=== PATIENT | male | born 1970 | race Caucasian/White ===

== ENCOUNTER 2022-10-13 08:05 | Outpatient (OUT) | payer OTHER, SELFPAY ==
[2022-10-13 08:49] LABS: Basophils Absolute Auto 0.1 10^3/uL (0.0-0.1); Eosinophils Absolute Auto 0.2 10^3/uL (0.0-0.7); Eosinophils Percent Auto 3.4 % (0.9-7.0); Hematocrit 42.7 % (42.0-54.0); Hemoglobin 14.6 g/dL (14.0-18.0); Immature Granulocytes Abs Auto 0.03 10^3/uL (0.00-0.03); Immature Granulocytes Pct Auto 0.5 % (0.0-0.5); Lymphocytes Absolute Auto 2.2 10^3/uL (1.2-3.8); Lymphocytes Percent Auto 36.4 % (20.5-60.0); Mean Corpuscular HGB Conc 34.2 g/dL (29.9-35.2); Mean Corpuscular Hemoglobin 28.9 pg (25.9-34.0); Mean Corpuscular Volume 84.6 fL (80.0-94.0); Mean Platelet Volume 10.7 fL (9.5-13.5); Monocytes Absolute Auto 0.5 10^3/uL (0.3-0.8); Monocytes Percent Auto 8.5 % (1.7-12.0); Neutrophils Percent Auto 50.2 % (43.0-75.0); Platelet Count 240 10^3/uL (150-450); Red Blood Count 5.05 10^6/uL (4.70-6.10); Red Cell Distribution Width 13.2 % (11.0-15.0); White Blood Count 5.9 10^3/uL (4.0-11.0)
[2022-10-13 11:20] LABS: Estimated Average Glucose 166 mg/dL; Glycohemoglobin A1C 7.4 % (4.5-6.2)
[2022-10-13 15:13] LABS: Alanine Aminotransferase 56 U/L (16-63); Albumin Globulin Ratio 0.9; Albumin Level 3.7 g/dL (3.4-5.0); Alkaline Phosphatase 104 U/L (46-116); Anion Gap 13.5; Aspartate Amino Transferase 21 U/L (15-37); BUN Creatinine Ratio 19.1; Bilirubin Total 0.4 mg/dL (0.2-1.0); Calcium 9.2 mg/dL (8.5-10.1); Carbon Dioxide 23.8 mmol/L (21.0-32.0); Chloride 106 mmol/L (98-107); Chol HDL Ratio 7.2; Cholesterol 224 mg/dL (<=200); Estimated GFR (African America >60 (>=60); Estimated GFR (Non-African Ame >60 (>=60); Free T3 3.01 pg/mL (2.18-3.98); Globulin 4.1 g/dL; Glucose 178 mg/dL (74-106); HDL Cholesterol 31 mg/dL (40-60); Potassium 4.3 mmol/L (3.5-5.1); Sodium 139 mmol/L (136-145); Thyroid Stimulating Hormone 0.699 uIU/mL (0.358-3.740); Total Protein 7.8 g/dL (6.4-8.2); Triglycerides 479 mg/dL (<=150); VLDL CHOLESTEROL 95.8 mg/dL
[2022-10-13 15:46] LABS: LDL Cholesterol Direct 99 mg/dL
[2022-10-14 07:13] LABS: PSA, Free 0.29 ng/mL; Prostate Specific Ag 1.2 ng/mL (0.0-4.0)
== END 2022-10-13 08:06 | disposition home or self-care (01) ==
PROVIDERS: PCP Family Medicine; Visit Provider Family Medicine
DX: Z00.00 Encounter for general adult medical examination without abnormal findings (principal)
CPT/HCPCS: 36415; 80053; 80061; 83036; 83721; 84153; 84154; 84436; 84443; 84481; 85025

== ENCOUNTER 2024-01-04 06:47 | Outpatient (OUT) | payer OTHER, SELFPAY ==
[2024-01-04 07:15] LABS: Basophils Percent Auto 0.8 % (0.2-2.0); Eosinophils Absolute Auto 0.2 10^3/uL (0.0-0.7); Eosinophils Percent Auto 4.7 % (0.9-7.0); Hematocrit 40.5 % (42.0-54.0); Hemoglobin 13.9 g/dL (14.0-18.0); Immature Granulocytes Abs Auto 0.02 10^3/uL (0.00-0.03); Immature Granulocytes Pct Auto 0.4 % (0.0-0.5); Lymphocytes Absolute Auto 1.9 10^3/uL (1.2-3.8); Lymphocytes Percent Auto 37.5 % (20.5-60.0); Mean Corpuscular HGB Conc 34.3 g/dL (29.9-35.2); Mean Corpuscular Hemoglobin 28.7 pg (25.9-34.0); Mean Corpuscular Volume 83.7 fL (80.0-94.0); Mean Platelet Volume 10.5 fL (9.5-13.5); Monocytes Absolute Auto 0.4 10^3/uL (0.3-0.8); Monocytes Percent Auto 8.2 % (1.7-12.0); Neutrophils Absolute Auto 2.5 10^3/uL (1.4-6.5); Neutrophils Percent Auto 48.4 % (43.0-75.0); Platelet Count 209 10^3/uL (150-450); Red Blood Count 4.84 10^6/uL (4.70-6.10); Red Cell Distribution Width 12.5 % (11.0-15.0); White Blood Count 5.2 10^3/uL (4.0-11.0)
[2024-01-04 08:20] LABS: Estimated Average Glucose 243 mg/dL; Glycohemoglobin A1C 10.1 % (4.5-6.2)
[2024-01-04 08:40] LABS: Alanine Aminotransferase 43 U/L (16-63); Albumin Globulin Ratio 0.9; Albumin Level 3.1 g/dL (3.4-5.0); Alkaline Phosphatase 121 U/L (46-116); Anion Gap 12.6; Aspartate Amino Transferase 17 U/L (15-37); BUN Creatinine Ratio 18.9; Bilirubin Total 0.3 mg/dL (0.2-1.0); Calcium 8.8 mg/dL (8.5-10.1); Carbon Dioxide 23.4 mmol/L (21.0-32.0); Chloride 105 mmol/L (98-107); Chol HDL Ratio 6.3; Cholesterol 202 mg/dL (<=200); Estimated GFR (African America >60 (>=60); Estimated GFR (Non-African Ame >60 (>=60); Free T3 2.67 pg/mL (2.18-3.98); Globulin 3.4 g/dL; Glucose 229 mg/dL (74-106); HDL Cholesterol 32 mg/dL (40-60); Sodium 137 mmol/L (136-145); Thyroid Stimulating Hormone 0.655 uIU/mL (0.358-3.740); Total Protein 6.5 g/dL (6.4-8.2); Triglycerides 373 mg/dL (<=150); VLDL CHOLESTEROL 74.6 mg/dL
[2024-01-04 08:42] LABS: Prostate Specific Antigen Scrn 1.92 ng/mL (<=4.00)
== END 2024-01-04 06:48 | disposition home or self-care (01) ==
LOC: LAB 06:49
PROVIDERS: PCP Family Medicine; Visit Provider Family Medicine
DX: Z00.00 Encounter for general adult medical examination without abnormal findings (principal)
CPT/HCPCS: 36415; 80053; 80061; 83036; 84436; 84443; 84481; 85025; G0103

== ENCOUNTER 2025-01-05 14:49 | Outpatient (OUT) | payer OTHER, SELFPAY ==
--- OUTSIDE RECORDS SUMMARY | 2025-01-05 14:52 | XMS_ITS | Patient Health Record ---
Author Organization The [facility] in [place] Address [address] [place] [address] Care Team Providers Care Hand Cigar Maker Name Role Phone Dony Mirza Primary Care Provider Allergies No Known Allergies Reason For Referral Reason Vasectomy Diagnosis 1 Well adult (Z00.00) Referral Organization [facility] Referring Provider First Name Dony Referring Provider Last Name Hermes Referring Provider Speciality Family Med bibi Referred Provider Gen Gann Referred Provider Specialty Urology Referral Priority Routine Medications Medication SIG (Take, Route, Frequency, Duration) Notes Start Date End Date Status metFORMIN HCl 500 MG 1 tablet with a luz l Orally twice a day; Duration: 90 days Active Pioglitazone HCl 30 MG 1 tablet Orally O nce a day; Duration: 90 days Active Januvia 100 MG 1 tablet Orally Once a day; Duration: 90 days 02/10/2024 Active Lisinopril 40 MG 1 tablet Orally Once a day; Duration: 90 days Active OneTouch Verio - Use 1 strip once nargis ly to test blood sugar. Dx: E11.9 12/24/2023 Active Sildenafil Citrate 100 MG take 1 tablet by mouth 30 MINUTES prior to intercourse NOT MORE THAN EVERY 3 DAYS; Duration: 30 days Active OneTouch Verio Flex Lancets Use1 lancet once daily to test blood sugars. Dx: E11.9 12/24/2023 Active amLODIPine Besylate 10 MG 1 tablet Orall y Once a day; Duration: 90 days Active [employer]S Glucose Meter Test Strips - glucose meter adn test strips for TID teswting In Vitro; Duration: 30 days 12/23/2023 Active Alogliptin Benzoate 12.5 MG 1 tablet Ora lly Once a day; Duration: 90 days 07/01/2024 Active Diclofenac Sodium 75 MG 1 tablet as need ed Orally Twice a day; Duration: 90 days 08/24/2024 Active Dexcom G7 Director Of Accounting - Use CGM daily for g lucose levels DX E16.2 and R73.9; Duration: 365 days 10/29/2024 Active Dexcom G7 Sensor - Use CGM daily for gl ucose levels DX E16.2 and R73.9; Duration: 30 days 10/29/2024 Active Social History Tobacco Use: Social History Observation Description Date Details (start date - stop date) Former Smoker 04/08/2000 - 04/08/2020 Tobacco Use/Smoking Question Answer Notes Patient is a former smoker When did you start smoking? 04/08/2000 When did you stop smoking? 04/08/2020 Alcohol Screen (Audit-C) Question Answer Notes Did you have a drink containing alcohol in the p ast year? No Points 0 Interpretation Negative AUDIT-C (Standard) Question Answer Notes Did you have a drink containing alcohol in the p ast year? No Points 0 Interpretation Negative Problems Problem Type SNOMED Code ICD Code Onset Dates Problem Status W/U Status Risk Notes Problem Low back pain (395756336) Low back pain (724.5) Active confirmed Problem Wart (43095327) Wart (B07.9) Active confirmed Problem Hypertension (75217018) Hypertension (I10) Active confirmed Problem Gastroesophageal reflux disease (382469445) GERD (gastroesophage al reflux disease) (K21.9) Active confirmed Problem Eczema (04934292) Eczema (L30.9) Active confirm ed Problem Allergic rhinitis (20883869) Allergic rhinitis (J30.9) Active confirmed Problem Well adult (125335217) Well adult (Z00.00) Active confirmed Problem Irritable bowel syndrome (49228217) Irritable bowel syndrome (K58.9) Active confirmed Problem Bursitis (17386236) Bursitis (M71.9) Active confirmed Problem Hemorrhoid (43704058) Hemorrhoid (K64.9) Active confirmed Problem Diverticular disease of colon (014844924) Diverticula of colon (K57.30) Active confirmed Problem 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) Renal cyst, right (N28.1) Active confirmed Problem Benign prostatic hypertrophy without outflow obstruction (941811575) Benign prostatic hyperplasia without lower urinary tract symptoms (N40.0) Active confirmed Problem Deep venous thrombosis of lower extremity (221370591) Venous thrombosis of leg (I82.90) Active confirmed Problem Type II diabetes mellitus without complication (211960714) Diabetes (E11.9) Active confirmed Vital Signs Blood pressure diastolic 72 mm Hg 01/04/2025 Height 67 in 01/04/2025 Blood pressure systolic 118 mm Hg 01/04/2025 Weight 211 lbs 01/04/2025 BMI 33.04 kg/m2 01/04/2025 Encounters Encounter Location Date Provider Diagnosis [facility] [address] [place] [address] 01/08/2024 Dony Mirza Wart B07.[address] [address] 02/10/2024 Dony Mcknighty Diabetes E11.9 and W art B07.9 [facility] [address] [place] [address] 04/03/2024 Dony Mcknighty Wart B07.[address] [address] 08/24/2024 Dony Mcknighty Bursitis M71.[address] [address] 10/28/2024 Dony Mcknighty Diabetes E11.9 [facility] [address] [place] [address] 01/04/2025 Dony Hoy Well adult Z00.00 ; Diabetes E11.9 and Hypertension I10 [facility] [address] [place] [address] 08/03/2024 Dony Mcknighty [facility] [address] [place] [address] 10/05/2024 Dony Mcknighty [facility] [address] [place] [address] 10/28/2024 Dony Mcknighty [facility] [address] [place], [place] [address], [place] [address] 01/04/2025 Dony Hoy Well adult Z00.00 ; Bursitis M71.9 and Diabetes E11.9 [facility] [address] [place] [facility] [place] [address] 01/07/2024 Dony Hoy [facility] [address] [place] [facility] [place] [address] 06/08/2024 Dony Hoy Well adult Z00.00 [facility] [address] [place] [facility] [place] [address] 06/24/2024 Dony Hoy Well adult Z00.00 [facility] [address] [place] [facility] [address] 07/01/[address] [facility] [address] [place] [place] [address] 07/01/[address] [facility] [address] [place] [place] [address] 07/23/2024 Dony Hoy Well adult Z00.00 [facility] [address] [place] [address] 08/24/2024 Dony Hoy Well adult Z00.00 [facility] [address] [place] [facility] [place] [address] 08/25/2024 Dony Juan Luisy Bursitis M71.[address] [place] [address] 10/04/2024 Dony Juan Luisy Assessments Encounter Date Diagnosis (ICD Code) Assessment Notes Treatment Notes Treatment Clinical Notes Section Notes 01/08/2024 Wart (ICD-10 - B07.9) 02/10/2024 Wart (ICD-10 - B07.9) 02/10/2024 Diabetes (ICD-10 - E11.9) 04/03/2024 Wart (ICD-10 - B07.9) 08/24/2024 Bursitis (ICD-10 - M71.9) may need prednisone - 60 mg po Q day for 5 days 10/28/2024 Diabetes (ICD-10 - E11.9) 01/04/2025 Well adult (ICD-10 - Z00.00) 01/04/2025 Diabetes (ICD-10 - E11.9) stopping glimiperide 06/08/2024 Well adult (ICD-10 - Z00.00) 06/24/2024 Well adult (ICD-10 - Z00.00) 07/23/2024 Well adult (ICD-10 - Z00.00) 01/04/2025 Well adult (ICD-10 - Z00.00) 08/24/2024 Well adult (ICD-10 - Z00.00) 08/25/2024 Bursitis (ICD-10 - M71.9) 01/04/2025 Bursitis (ICD-10 - M71.9) 01/04/2025 Hypertension (ICD-10 - I10) 01/04/2025 Diabetes (ICD-10 - E11.9) Plan Of Treatment Pending Test Test Name Order Date CMP (COMPLETE METABOLIC PANEL) 3 CMP (COMPLETE METABOLIC PANEL) 4 HEMOGLOBIN A1C (GLYCO) 12/23/2023 HEMOGLOBIN A1C (GLYCO) 01/04/2025 HEMOGLOBIN A1C (GLYCO) 10/12/2022 LIPID PANEL (CHOL/TRIG/HDL/LDL) 12/23/19 24 LIPID PANEL (CHOL/TRIG/HDL/LDL) 10/13/19 23 LIPID PANEL (CHOL/TRIG/HDL/LDL) 01/05/20 25 CBC WITH DIFF 10/12/2022 CBC WITH DIFF 12/23/2023 URIC ACID 01/04/2025 PSA-FREE AND TOTAL 10/12/2022 PSA, TOTAL 12/23/2023 STOOL OCCULT BLOOD 01/04/2025 THYROID PANEL (T4/TSH/FREE T3) 5 THYROID PANEL (T4/TSH/FREE T3) 4 THYROID PANEL (T4/TSH/FREE T3) 3 PSA, SCREENING 01/04/2025 CMP (COMP MET SHARMA) w/eGFR CKD-EPI 2024 CBC WITH DIFF 01/04/2025 Insurance Providers Payer Name Payer Address Payer Phone Subscriber Number Group Number Insured Name Patient Relationship to Insured Coverage Start Date Coverage End Date [employer] [address] [address] [place] [address] [id number] yesi rangel Spouse - patient is the spouse of the insured Medical (General) History Medical History History ICD Code Venous thrombosis of leg I82.90 Low back pain 724.5 Hypertension I10 Diabetes E11.9 Irritable bowel syndrome K58.9 Hemorrhoid K64.9 Renal cyst, right N28.1 Eczema L30.9 GERD (gastroesophageal reflux disease) K 21.9 Allergic rhinitis J30.9 Diverticula of colon K57.30 Epididymitis Fracture Carpal bone, Right Collapsed Vertebra, L4 Traumatic Pneumothorax, Right Ileus Intenstinal Pseudo Obstruction Surgical History Surgery Date(Month/Year) Chest tube from punctured lung [facility]- Dr. Harry 10/17/2023 Colonoscopy 09/26/16 Hospitalization History Reason Date(Month/Year) traumatic accident
[2025-01-05 15:45] LABS: Hematocrit 41.9 % (42.0-54.0); Hemoglobin 14.4 g/dL (14.0-18.0); Immature Granulocytes Abs Auto 0.02 10^3/uL (0.00-0.03); Immature Granulocytes Pct Auto 0.3 % (0.0-0.5); Lymphocytes Absolute Auto 2.3 10^3/uL (1.2-3.8); Mean Corpuscular HGB Conc 34.4 g/dL (29.9-35.2); Mean Corpuscular Hemoglobin 28.9 pg (25.9-34.0); Mean Corpuscular Volume 84.0 fL (80.0-94.0); Platelet Count 226 10^3/uL (150-450); Red Blood Count 4.99 10^6/uL (4.70-6.10); White Blood Count 6.0 10^3/uL (4.0-11.0)
[2025-01-05 15:58] LABS: Alanine Aminotransferase 51 U/L (16-63); Albumin Globulin Ratio 1.0; Albumin Level 3.8 g/dL (3.4-5.0); Alkaline Phosphatase 97 U/L (46-116); Anion Gap 16.1; Aspartate Amino Transferase 20 U/L (15-37); Blood Urea Nitrogen 18.0 mg/dL (7.0-18.0); Calcium 9.2 mg/dL (8.5-10.1); Carbon Dioxide 24.8 mmol/L (21.0-32.0); Chloride 104 mmol/L (98-107); Cholesterol 200 mg/dL (<=200); Estimated GFR (African America >60 (>=60 mL/min/1.73m^2); Estimated GFR (Non-African Ame >60 (>=60 mL/min/1.73m^2); Free T3 2.56 pg/mL (2.18-3.98); Globulin 3.8 g/dL; Glucose 96 mg/dL (74-106); HDL Cholesterol 37 mg/dL (40-60); Potassium 3.9 mmol/L (3.5-5.1); Sodium 141 mmol/L (136-145); Thyroid Stimulating Hormone 0.837 uIU/mL (0.358-3.740); Total Protein 7.6 g/dL (6.4-8.2); Triglycerides 200 mg/dL (<=150); Uric Acid 4.1 mg/dL (3.5-7.2); VLDL CHOLESTEROL 40.0 mg/dL
== END 2025-01-05 14:50 | disposition home or self-care (01) ==
PROVIDERS: PCP Family Medicine; Visit Provider Family Medicine
DX: Z00.00 Encounter for general adult medical examination without abnormal findings (principal)
CPT/HCPCS: 36415; 80053; 80061; 83036; 84436; 84443; 84481; 84550; 85025; G0103

== ENCOUNTER 2025-01-07 14:47 | Outpatient (REF) | payer OTHER, SELFPAY ==
--- OUTSIDE RECORDS SUMMARY | 2025-01-04 12:00 | XMS_ITS ---
Author Organization The [facility] in [place] Address [address] [place] [address] Care Team Providers Care Digital Communications Manager Name Role Phone Dony Mirza Primary Care Provider [phone] Allergies No Known Allergies Reason For Referral Reason Vasectomy Diagnosis 1 Well adult (Z00.00) Referral Organization [facility] Medicine Referring Provider First Name Dony Referring Provider Last Name Hermes Referring Provider Speciality Family Med bibi Referred Provider Gen Gann Referred Provider Specialty Urology Referral Priority Routine REASON FOR VISIT annual wellness, would like to discuss blood sugars Medications Medication SIG (Take, Route, Frequency, Duration) Notes Start Date End Date Status Sildenafil Citrate 100 MG take 1 tablet by mouth 30 MINUTES prior to intercourse NOT MORE THAN EVERY 3 DAYS; Duration: 30 Active metFORMIN HCl 500 MG take 1 tablet by [facility] twice a day; Duration: 90 days Active OneTouch Verio - Use 1 strip once nargis ly to test blood sugar. Dx: E11.9 12/24/2023 Active OneTouch Verio Flex Lancets Use1 lancet once daily to test blood sugars. Dx: E11.9 12/24/2023 Active Pioglitazone HCl 30 MG 1 tablet Orally O nce a day; Duration: 90 days Active Future Simplecom G7 Sensor - Use CGM daily for gl ucose levels DX E16.2 and R73.9; Duration: 30 days 10/29/2024 Active Diclofenac Sodium 75 MG 1 tablet as need ed Orally Twice a day; Duration: 30 days 08/24/2024 Active Januvia 100 MG 1 tablet Orally Once a day; Duration: 30 days 02/10/2024 Active Lisinopril 40 MG take 1 tablet by reina th once daily; Duration: 90 days Active Dexcom G7 Zoning Engineer - Use CGM daily for g lucose levels DX E16.2 and R73.9; Duration: 365 days 10/29/2024 Active Alogliptin Benzoate 12.5 MG 1 tablet Ora lly Once a day; Duration: 90 days 07/01/2024 Active amLODIPine Besylate 10 MG 1 tablet Orall y Once a day; Duration: 90 days Active [facility] Glucose Meter Test Strips - glucose meter adn test strips for TID teswting In Vitro; Duration: 30 days 12/23/2023 Active Social History Tobacco Use: Social History Observation Description Date Details (start date - stop date) Former Smoker 04/08/2000 - 04/08/2020 Tobacco Use/Smoking Question Answer Notes Patient is a former smoker When did you start smoking? 04/08/2000 When did you stop smoking? 04/08/2020 AUDIT-C (Standard) Question Answer Notes Did you have a drink containing alcohol in the p ast year? No Points 0 Interpretation Negative Vital Signs Weight 211 lbs 01/04/2025 Height 67 in 01/04/2025 Blood pressure systolic 118 mm Hg 01/05/20 25 Blood pressure diastolic 72 mm Hg 025 BMI 33.04 kg/m2 01/04/2025 Encounters Encounter Location Date Provider Diagnosis [address] [address] 01/04/2025 Dony Mirza Well adult Z00.00 ; Diabetes E11.9 and Hypertension I10 Assessments Encounter Date Diagnosis (ICD Code) Assessment Notes Treatment Notes Treatment Clinical Notes Section Notes 01/04/2025 Well adult (ICD-10 - Z00.00) 01/04/2025 Diabetes (ICD-10 - E11.9) stopping glimiperide 01/04/2025 Hypertension (ICD-10 - I10) Plan Of Treatment Treatment Notes Assessment Notes Diabetes stopping glimiperide Pending Test Test Name Order Date HEMOGLOBIN A1C (GLYCO) 01/04/2025 LIPID PANEL (CHOL/TRIG/HDL/LDL) 01/05/20 25 URIC ACID 01/04/2025 STOOL OCCULT BLOOD 01/04/2025 THYROID PANEL (T4/TSH/FREE T3) PSA, SCREENING 01/04/2025 CMP (COMP MET SHARMA) w/eGFR CKD-EPI 2024 CBC WITH DIFF 01/04/2025 Referrals Referral Date Details 01/04/2025 01/04/2025, Vasectom y, Gen Gann Progress Notes * Gigi RANGEL EDOB:1970 (54 yo M)Acc No.[id number]:01/04/2025 UNLOCKED PROGRESS NOTE Progress Note Patient: Gigi REID Provider: Kristopher Mirza ([facility])MD :1970 A ge:54 Y S ex:Male Date:01/04/2025 Address:[address] [place], [place] [address] Check In:03:49 PM ESTCheck O ut:05:06 PM EST Subjective: * Chief Complaints: * 1 . Annual wellness. 2. Would like to discuss blood sugars. * ROS: E ENT: hearing changes d enies. v isual changes d enies.?non-healing mouth sores d enies. s wollen glands or neck lumps d enies. h oarseness d enies. s ore throat d enies. d ifficulty swallowing d enies. n ose bleeds d enies. n tito congestion d enies. e ar ache d enies. e ar discharge?denies. r inging in ears d enies. l ight sensitivity d enies. e ye pain d enies. b lurring d enies. e ye irritation d enies. d ouble vision d enies.?vision loss d enies. G eneral/Constitutional: Sweats: D enies. F atigue d enies. S leep problems d enies. A norexia d enies. M alaise d enies. W eight loss d enies.?Fatigue or Weakness d enies. F ever or Chills d enies. C ardiovascular: Shortness of Breath w/lying flat d enies. L ightheadedness/dizziness d enies. C hest tightness/ heavy pressure d enies. S welling of legs, ankles, or feet d enies. W aking up with shortness of breath d enies. C hest pain denies. P alpitations d enies. W eight gain d enies. R espiratory: Chronic or frequent cough d enies. C oughing up blood?denies. D ifficulty breathing d enies. P roductive cough d enies. S noring?denies. S hortness of breath that awakens from sleep (PND) d enies. C hest pain d enies. S putum production d enies. W heezing d enies. M usculoskeletal: Joint pain d enies. J oint Fluid d enies. B ack pain d enies. K nee pain d enies. N shan pain d enies. J oint Stiffness d enies. M uscle cramps d enies. W eakness of muscles d enies. A rthritis d enies. M uscle aches d enies. P ain in shoulder(s) d enies. S wollen joints d enies. * Medical History: V enous thrombosis of leg, Low back pain, Hypertension, Diabetes, Irritable bowel syndrome, Hemorrhoid, Renal cyst, right, Eczema, GERD (gastroesophageal reflux disease), Allergic rhinitis, Diverticula of colon, Epididymitis, Fracture Carpal bone, Right, Collapsed Vertebra, L4, Traumatic Pneumothorax, Right, Ileus, Intenstinal Pseudo Obstruction. * Surgical History: C hest tube from punctured lung , Colonoscopy 09/26/16, [facility]- Dr. Harry 10/17/2023. * Hospitalization/Major Diagno stic Procedure: t raumatic accident . * Family History: F ather: , CHF, diagnosed with Heart Disease. M other: , [facility], diagnosed with Heart Disease. B greger(s): alive. S ister(s): alive. D andrei(s): alive, crohns disease. 1 brother(s) , 3 sister(s) - healthy. 1 daughter(s) . . * Social History: T obacco Use: T obacco Use/Smoking P atient is a f ormer smoker W hen did you start smoking? 0 04/08/2000 W hen did you stop smoking? 0 04/08/2020 D rug/Alcohol: A LYLY-C (Standard) D id you have a drink containing alcohol in the past year? N o P oints 0 I nterpretation N egative * Medications: T sumi Alogliptin Benzoate 12.5 MG Tablet 1 tablet Orally Once a day , Taking amLODIPine Besylate 10 MG Tablet 1 tablet Orally Once a day , Taking [facility] Glucose Meter Test Strips(Glucose Blood) - Strip glucose meter adn test strips for TID teswting In Vitro , Taking Dexcom G7 Zoning Engineer(Continuous Glucose Zoning Engineer) - Device Use CGM daily for glucose levels DX E16.2 and R73.9 , Taking Dexcom G7 Sensor(Continuous Glucose Sensor) - Miscellaneous Use CGM daily for glucose levels DX E16.2 and R73.9 , Taking Diclofenac Sodium 75 MG Tablet Delayed Release 1 tablet as needed Orally Twice a day , Taking Januvia(SITagliptin Phosphate) 100 MG Tablet 1 tablet Orally Once a day , Taking Lisinopril 40 MG Tablet take 1 tablet by mouth once daily , Taking metFORMIN HCl 500 MG Tablet take 1 tablet by mouth twice a day , Taking OneTouch Verio(Glucose Blood) - Strip Use 1 strip once daily to test blood sugar. Dx: E11.9, Taking OneTouch Verio Flex Lancets Use1 lancet once daily to test blood sugars. Dx: E11.9, Taking Pioglitazone HCl 30 MG Tablet 1 tablet Orally Once a day , Taking Sildenafil Citrate 100 MG Tablet take 1 tablet by mouth 30 MINUTES prior to intercourse NOT MORE THAN EVERY 3 DAYS , Discontinued Glimepiride 2 MG Tablet 1 tablet with breakfast or the first main meal of the day Orally Once a day , Medication List reviewed and reconciled with the patient * Allergies: N .K.D.A. Objective: * Vitals: W t:211lbs, Ht: 67 in, BP:118/72mm Hg, BMI:33.04Index, Ht-cm: 170.18 cm, Wt-k.71 kg. * Examination: P hysical Exam: GENERAL: w ell developed, well nourished, in no acute distress. HEAD: n ormocephalic/atraumatic. EYES: p upils equal, round and reactive to light, conjunctivae and sclerae normal. EARS: n o deformity or lesion of external ear, canals and TM appear normal bilaterally, TM's intact, not inflamed with normal light reflex, hearing grossly normal to conversational speech. NOSE: n o deformity, discharge, inflammation, or lesions.? MOUTH: m ucous membranes moist, normal oropharynx and posterior pharynx without lesions or exudates, tongue normal, dentition normal. NECK: n shan supple, no masses or palpable cervical nodes, trachea midline, thyroid without nodules, masses, tenderness, or enlargement. CHEST: n o chest wall deformity, no chest wall tenderness.? LUNGS: n ormal respiratory effort and clear to auscultation, no wheezes, rales, or rhonchi, good air exchange. CARDIO: r egular rate and rhythm, normal S1 and S2, nor murmur, rub, or gallop. PULSES: n ormal capillary refill. ABDOMEN: s oft, non-distended, non-tender, no masses. MUSCULOSKELETAL: n o deformity or scoliosis noted, normal range of motion, joints normal, no erythema, edema, effusion, or ecchymosis. EXTREMITY: n o clubbing, cyanosis, edema, or deformity with normal ROM in both upper and lower bilateral extremities. NEUROLOGIC: g rossly normal. SKIN: n o rashes, ulcerations, or suspicious lesions. LYMPH NODES: n o cervical adenopathy, nodes normal. MENTAL STATUS: a lert and oriented x3, normal mood and affect. Assessment: * Assessment: 1. W ell adult - Z00.00 (Primary) 2 . D iabetes - E11.9 3 .?Hypertension - I10 Plan: * Treatment: 2. D iabetes Notes: stopping glimiperide * Preventive Medicine: Screenings/Counseling: B OR ACTION PLAN Above Normal BMI Follow-up D ietary management education, guidance, and counseling * * Electronic signature of Dony Mirza MD, [id number] on 01/07/2025 at 02:49 PM EDT Sign off status: Pending Visit Status: Kate ISRAEL (Check Out) * Provider: Kristopher Mirza ([facility])MD Date: 0 01/04/2025 Generated for Printi ng/Faarmeng/eTransmitting on: 1 02:49 PM EDT History and Physical Notes * Examination Category Sub-Category Detail Notes Category Not es Physical Exam GENERAL: well developed, well nourished, in no acute distress HEAD: normocephalic/atraum atic EYES: pupils equal, round and reactive to light, conjunctivae and sclerae normal EARS: no deformity or lesi on of external ear, canals and TM appear normal bilaterally, TM's intact, not inflamed with normal light reflex, hearing grossly normal to conversational speech NOSE: no deformity, discha rge, inflammation, or lesions MOUTH: mucous membranes [address], normal oropharynx and posterior pharynx without lesions or exudates, tongue normal, dentition normal NECK: neck supple, no mass es or palpable cervical nodes, trachea midline, thyroid without nodules, masses, tenderness, or enlargement CHEST: no chest wall deform ity, no chest wall tenderness LUNGS: normal respiratory e ffort and clear to auscultation, no wheezes, rales, or rhonchi, good air exchange CARDIO: regular rate and rhy thm, normal S1 and S2, nor murmur, rub, or gallop PULSES: normal capillary ref ill ABDOMEN: soft, non-distended, non-tender, no masses RECTAL: MUSCULOSKELETAL: no deformity or scol iosis noted, normal range of motion, joints normal, no erythema, edema, effusion, or ecchymosis EXTREMITY: no clubbing, cyanosi s, edema, or deformity with normal ROM in both upper and lower bilateral extremities NEUROLOGIC: grossly normal SKIN: no rashes, ulceratio ns, or suspicious lesions LYMPH NODES: no cervical adenopat hy, nodes normal MENTAL STATUS: alert and oriented x 3, normal mood and affect Consultation Request Notes Referral Date Referring Provider Referred Provider Not es 01/04/2025 Dony Mirza, Gen Vasectomy
--- OUTSIDE RECORDS SUMMARY | 2025-01-05 12:57 | XMS_ITS ---
Author Organization The [facility] in [place] Address [address] [place] [address] Care Team Providers Care Supervisor Keymodule Assembly Name Role Phone Dony Mirza Primary Care Provider REASON FOR VISIT Lab results Problems Problem Type SNOMED Code ICD Code Onset Dates Problem Status W/U Status Risk Notes Problem Hypertriglyceridemia (092019196) Hypertriglyceridemia (E78.1) Active confirmed Encounters Encounter Location Date Provider Diagnosis [facility] [address] [place] [address] 01/05/2025 Dony Mirza Plan Of Treatment No Information Progress Notes * Gigi RANGEL EDOB:1970 (54 yo M)Acc No.[id number]:01/05/2025 Patient: Gigi REID :1970 A ge:54 Y S ex:Male Address:[address] [place] [address] Subjective: * Chief Complaints: * L ab results * Medical History: * Surgical History: * Hospitalization/Major Diagno stic Procedure: * Medications: Objective: * Vitals: * Physical Examination: Assessment: Plan: * Treatment: * Procedure Codes: * true * Date: Generated for Printi ng/Faxing/eTransmitting on: 1 02:49 PM EDT
--- OUTSIDE RECORDS SUMMARY | 2025-01-07 14:50 | XMS_ITS | Patient Health Record ---
Author Organization [facility] [place] Address [address] [place] [address] Care Team Providers Care Sliver Former Name Role Phone Dony Mirza Primary Care Provider [phone] Allergies No Known Allergies Results Component Value Reference Range Notes CBC AUTO DIFF Reviewed date:01/05/2025 04:57:32 PM Interpretation: Performing Lab: Notes/Report: [facility] , White Blood Count 6.0 4.0-11.0 10 3/uL Red Blood Count 4.99 4.70-6.10 10 6/uL Hemoglobin 14.4 14.0-18.0 g/dL Hematocrit 41.9 42.0-54.0 % Mean Corpuscular Volume 84.0 80.0-94.0 fL Mean Corpuscular Hemoglobin 28.9 25.9-34.0 pg Mean Corpuscular HGB Conc 34.4 29.9-35.2 g/dL Red Cell Distribution Width 13.6 11.0-15.0 % Platelet Count 226 150-450 10 3/uL Mean Platelet Volume 10.9 9.5-13.5 fL Neutrophils Percent Auto 50.3 43.0-75.0 % Lymphocytes Percent Auto 37.6 20.5-60.0 % Monocytes Percent Auto 8.1 1.7-12.0 % Eosinophils Percent Auto 3.0 0.9-7.0 % Basophils Percent Auto 0.7 0.2-2.0 % Immature Granulocytes Pct Auto 0.3 0.0-0.5 % Neutrophils Absolute Auto 3.0 1.4-6.5 10 3/uL Lymphocytes Absolute Auto 2.3 1.2-3.8 10 3/uL Monocytes Absolute Auto 0.5 0.3-0.8 10 3/uL Eosinophils Absolute Auto 0.2 0.0-0.7 10 3/uL Basophils Absolute Auto 0.0 0.0-0.1 10 3/uL Immature Granulocytes Abs Auto 0.02 0.00-0.03 10 3/uL Performing Lab: see note ML - [facility] FREE T3 Reviewed date:01/05/2025 04:57:32 PM Interpretation: Performing Lab: Notes/Report: [facility] , Free T3 2.56 2.18-3.98 pg/mL Performing Lab: see note ML - [facility] GLYCOHEMOGLOBIN A1C Reviewed date:01/05/2025 04:57:32 PM Interpretation: Performing Lab: Notes/Report: [facility] , Glycohemoglobin A1C 6.1 4.5-6.2 % ADA THERAPEUTIC TARGET < 7.0 ACTION SUGGESTED ADA RECOMMENDED LIMIT 4.0 - 6.0 > 7.0 Estimated Average Glucose 128 Performing Lab: see note ML - [facility] LIPID PROFILE Reviewed date:01/05/2025 04:57:32 PM Interpretation: Performing Lab: Notes/Report: [facility] , Triglycerides 200 <=150 mg/dL Cholesterol 200 <=200 mg/dL HDL Cholesterol 37 40-60 mg/dL > or =60 mg/dl - LOW CARDIOVASCULAR RISK <40 mg/dl - HIGH CARDIOVASCULAR RISK LDL Cholesterol Calculated 123.0 160-189 mg/dl HIGH 100-129 mg/dl NEAR OR ABOVE OPTIMAL >190 mg/dl VERY HIGH 130-159 mg/dl BORDERLINE HIGH <100 mg/dl OPTIMAL VLDL CHOLESTEROL 40.0 Chol HDL Ratio 5.4 >11.0 HIGH RISK 3.3 - 4.4 LOW RISK 4.4 - 7.1 AVERAGE RISK 7.1 - 11.0 MODERATE RISK Performing Lab: see note [facility] PROF 14(COMP METB) Reviewed date:01/05/2025 04:57:32 PM Interpretation: Performing Lab: Notes/Report: [facility] , Sodium 141 136-145 mmol/L Potassium 3.9 3.5-5.1 mmol/L Chloride 104 98-107 mmol/L Carbon Dioxide 24.8 21.0-32.0 mmol/L Anion Gap 16.1 Glucose 96 74-106 mg/dL Blood Urea Nitrogen 18.0 7.0-18.0 mg/dL Creatinine 0.80 0.70-1.30 mg/dL Estimated GFR ( Bfufy >60 >=60 mL/min/1.73m 2 Estimated GFR (Non- Rosa >60 >=60 mL/min/1.73m 2 BUN Creatinine Ratio 22.5 Calcium 9.2 8.5-10.1 mg/dL Bilirubin Total 0.5 0.2-1.0 mg/dL Aspartate Amino Transferase 20 15-37 U/L Alanine Aminotransferase 51 16-63 U/L Alkaline Phosphatase 97 46-116 U/L Total Protein 7.6 6.4-8.2 g/dL Albumin Level 3.8 3.4-5.0 g/dL Globulin 3.8 Albumin Globulin Ratio 1.0 Performing Lab: see note ML - [facility] LB PSA SCREENING Reviewed date:01/05/2025 04:57:32 PM Interpretation: Performing Lab: Notes/Report: [facility] , Prostate Specific Antigen Scrn 1.35 <=4.00 ng/mL Performing Lab: see note ML - [facility] LB T4 Reviewed date:01/05/2025 04:57:32 PM Interpretation: Performing Lab: Notes/Report: [facility] , T4 Thyroxine 7.50 4.50-12.10 ug/dL Performing Lab: see note ML - [facility] LB TSH Reviewed date:01/05/2025 04:57:32 PM Interpretation: Performing Lab: Notes/Report: [facility] , Thyroid Stimulating Hormone 0.837 0.358-3.740 u IU/mL Performing Lab: see note ML - [facility] LB URIC ACID SERUM Reviewed date:01/05/2025 04:57:32 PM Interpretation: Performing Lab: Notes/Report: [facility] , Uric Acid 4.1 3.5-7.2 mg/dL Performing Lab: see note ML - [facility] LB Reason For Referral Reason Vasectomy Diagnosis 1 Well adult (Z00.00) Referral Organization [facility] Referring Provider First Name Dony Referring Provider Last Name Hermes Referring Provider Speciality [facility] bibi Referred Provider Gen Gann Referred Provider [...] Duration: 90 days 08/24/2024 Active 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 - Use CGM daily for g lucose [...] Status Risk Notes Problem Low back pain (227648627) Low back pain (724.5) Active confirmed Problem Wart (99725573) Wart (B07.9) Active confirmed Problem Hypertension (80445915) Hypertension (I10) Active confirmed Problem Gastroesophageal reflux disease (287058851) GERD (gastroesophageal reflux disease) (K21.9) Active confirmed Problem Eczema (98910411) Eczema (L30.9) Active confirm ed Problem Hypertriglyceridemia (290396877) Hypertriglyceridemia (E78.1) Active confirmed Problem Allergic rhinitis (13323718) Allergic rhinitis (J30.9) Active confirmed Problem Well adult (323336831) Well adult (Z00.00) Active confirmed Problem Irritable bowel syndrome (00638698) Irritable bowel syndrome (K58.9) Active confirmed Problem Bursitis (22701687) Bursitis (M71.9) Active con firmed Problem Hemorrhoid (30034255) Hemorrhoid (K64.9) Active confirmed Problem Diverticular disease of colon (356267366) Diverticula of colon (K57.30) Active confirmed Problem Acquired renal cysti c disease (994962541) Renal cyst, right (N28.1) Active confirmed Problem Benign prostatic hypertrophy without outflow obstruction (147994731) Benign prostatic hyperplasia without lower urinary tract symptoms (N40.0) Active confirmed Problem Deep venous thrombosis of lower extremity (555384356) Venous thrombosis of leg (I82.90) Active confirmed Problem Type II diabetes mellitus without complication (015796628) Diabetes (E11.9) Active confirmed Vital Signs Blood pressure diastolic 72 mm Hg 01/04/2025 Height 67 in 01/04/2025 Blood pressure systolic 118 mm Hg 01/04/2025 Weight 211 lbs 01/04/2025 BMI 33.04 kg/m2 01/04/2025 Encounters Encounter Location Date Provider Diagnosis [facility] [address] [place] [address] 08/03/2024 [facility] [address] [place] [address] 10/05/2024 [facility] [address] [place] [address] 10/28/2024 Dony Hoy [facility] [address] [place] [facility] [place] [address] 01/04/2025 Dony Hoy Well adult Z00.00 ; Bursitis M71.9 and Diabetes E11.9 [facility] [address] [place] [facility] [place] [address] 01/05/2025 Dony Hoy [facility] [address] [place] [facility] [place] [address] 06/08/2024 Dony Hoy Well adult Z00.00 [facility] [address] [place] [facility] [place] [address] 06/24/2024 Dony Hoy Well adult Z00.00 [facility] [address] [place] [facility] [address] 07/01/2024 Dony Hoy [facility] [address] [facility] [place] [address] 07/01/2024 Dony Hoy [facility] [address] [place] [facility] [address] 07/23/2024 Dony Hoy Well adult Z00.00 [facility] [address] [place] [facility] [place] [address] 08/24/2024 Dony Hoy Well adult Z00.00 [facility] [address] [place] [facility] [place] [address] 08/25/2024 Dony Hoy Bursitis M71.9 [facility] [address] [place] [facility] [place] [address] 10/04/2024 Dony Hoy [facility] [address] [place] [facility] [place] [address] 01/08/2024 Dony Hoy Wart B07.9 [facility] [address] [place] [facility] [place] [address] 02/10/2024 Dony Hoy Diabetes E11.9 and W art B07.9 [facility] [address] [place] [facility] [place] [address] 04/03/2024 Dony Mirza Wart B07.9 [facility] [address] [place] [address] 08/24/2024 Dony Mirza Bursitis M71.9 [facility] [address] [place] [address] 10/28/2024 Dony Mirza Diabetes E11.9 [facility] [address] [place] [address] 01/04/2025 Dony Mirza Well adult Z00.00 ; Diabetes E11.9 and Hypertension I10 Assessments Encounter Date Diagnosis (ICD Code) Assessment Notes Treatment Notes Treatment Clinical Notes Section Notes 01/08/2024 Wart (ICD-10 - B07.9) 02/10/2024 Diabetes (ICD-10 - E11.9) 02/10/2024 Wart (ICD-10 - B07.9) 04/03/2024 Wart (ICD-10 - B07.9) 08/24/2024 Bursitis [...] Coverage End Date [employer] [address] [address] [place] [address] [id number] yesi rangel Spouse - patient is the [...] Traumatic Pneumothorax, Right Ileus Intenstinal Pseudo Obstruction Hypertriglyceridemia E78.1 Surgical History Surgery Date(Month/Year) Chest tube from punctured lung TURP- Dr. Harry 10/17/2023 Colonoscopy 09/26/16 Hospitalization History Reason Date(Month/Year) traumatic accident
--- OUTSIDE RECORDS SUMMARY | 2025-01-07 19:46 | XMS_ITS | CCD ---
Author Organization [facility] Care Team Providers Care Dispatcher Relay Name Role Phone DR ABDULKADIR LOCKETT Consulting Unavailable LEVY, DR PANCHAL Primary Care Unavailable LEVY, DR PANCHAL Admitting Unavailable ARVINDY, DR PANCHAL Attending Unavailable Zieber, DR Escalona Consulting Unavailable LEVY, DR PANCHAL Consulting Unavailable ARVINDY, DR PANCHAL Primary Care Unavailable ARVINDY, DR PANCHAL Admitting Unavailable HOY, DR PANCHAL Attending Unavailable Zieber, DR Escalona Consulting Unavailable LEVY, DR PANCHAL Consulting Unavailable LEVY, DR PANCHAL Primary Care Unavailable LEVY, DR PANCHAL Admitting Unavailable LEVY, DR PANCHAL Attending Unavailable Abdulkadir Lockett Primary Care Physician MD Kyle Harry Attending Provider MD Abdulkadir Lockett Primary Care Provider [phone] IDA Sanford Other Provider Unavailable IDA Hubbard Other Provider Unavailable IDA Yeboah Other Provider Unavailable IDA Ordaz Other Provider Unavailable IDA Bautista Other Provider Unavailable MD Roverto Cordoba Other Provider DO Halima Burgos Other Provider MD Temo Collado Other Provider DO Brody Bustos Other Provider MD Horace Ureña Other Provider [phone] MD Alaina Christianson Other Provider MD Leonardo Ibrahim Other Provider Unavailable GREGORY Romero Other Provider [phone] MD Kingston Max Other Provider MD Daniel Bueno Other Provider MD Juan Diego Thomas Other Provider MD Shaun Chauhan Other Provider DO Shantanu Tavares Other Provider MD Zack Salvador Other Provider MD Nick Borrego Other Provider Jose Ramon LACE WINDER-C Susannah Calabrese Other Provider GREGORY Mak Other Provider Unavailable MD Juan Manuel Alexandra Other Provider MD Fan Gloria Other Provider MD Chris Rojas Other Provider MD Lulú Nuno Other Provider Unavailable MD Sukhdev Aleman Other Provider DO Trish Patel Other Provider DO Odell Torres Other Provider GREGORY Peres Other Provider DO Ayan Robles Other Provider MD Marilu Muñoz Other Provider GREGORY Thomas Other Provider GREGORY Martino Other Provider MD Sam Coulter Other Provider MD Pérez Carlos Other Provider DO Jerson Watson Other Provider DO Aaliyah Rios Other Provider MD Davin Rojas Other Provider MD Brenda Jameson Other Provider GREGORY Padgett Other Provider MD Samson Jim Other Provider MD Dusty Manriquez Other Provider IDA Ruiz Other Provider Unavailable Kyle Harry Admitting Unavailable Kyle Harry Attending Unavailable Abdulkadir Lockett Primary Care Unavailable Abdulkadir Lockett Primary Care Unavailable Kary Sanford Consulting Unavailable Kyle Harry Admitting Unavailable Kyle Harry Attending Unavailable Naz Hubbard Consulting Unavailable Gladys Yeboah Consulting Unavailable Nathalia Ordaz Consulting Unavailable Lisandra Bautista Consulting Unavailable Roverto Cordoba Consulting Unavailable Halima Burgos Consulting Unavailable Temo Collado Consulting Unavailable Brody Bustos Consulting UnavailHorace Soto Consulting Unavailable Alaina Christianson Consulting Unavailable Leonardo Ibrahim Consulting Unavailable Daisha Romero Consulting UnavailKingston Medeiros Consulting Unavailable Daniel Bueno Consulting Unavailable Juan Diego Thomas Consulting Unavailable Shaun Chauhan Consulting Unavailable Shantanu Tavares Consulting Unavailable Zack Salvador Consulting Unavailable Nick Borrego Consulting Unavailable Susannah Albright Consulting Unavailable Rebeca Mak Consulting Unavailable DoamerinaorJuan Manuel Consulting UnavailFan Bustillos Consulting Unavailable Chris Rojas Consulting Unavailable Lulú Nuno Consulting Unavailable Sukhdev Aleman Consulting Unavailable Trish Patel Consulting Unavailable Odell Torres Consulting Unavailable ObKira rolle Consulting Unavailable Ayan Robles Consulting Unavailable DaromaJarrett juarezayaimee Contreras Consulting Unavailable Destiny Thomas Consulting Unavailable Tammi Martino Consulting Unavailable Alahmad Alaa Consulting Unavailable Pérez Carlos Consulting Unavailable Jerson Watson Consulting Unavailable Aaliyah Rios Consulting Unavailable Davin Rojas Consulting Unavailable Brenda Jameson Consulting Unava Soco Lr Consulting Unavailable Samson Jim Consulting Unavailable Dusty Manriquez Consulting Unavailable Zainab Ruiz Consulting Unavailable Kyle HARRY Attending Unavailable Kyle HARRY Attending Unavailable Noemy Mckeon Attending Unavailable LORE ZAPATA Attending Unavailable Kyle HARRY Attending Unavailable Kyle HARRY Admitting Unavailable Kyle HARRY Attending Unavailable COOK, Kyle P Referring Unavailable COOK, Kyle P Admitting Unavailable COOK, Kyle P Attending Unavailable COOK, Kyle P Referring Unavailable COOK, Kyle P Attending Unavailable COOK, Kyle P Referring Unavailable COOK, Kyle P Admitting Unavailable COOK, Kyle P Attending Unavailable COOK, Kyle P Attending Unavailable Medications Current Medications Medication Drug Class(es) Dates Sig (Normalized) Sig (Original) acetaminophen 325 mg / HYDROcodone bitartrate 5 mg oral tablet (3 sources) Opioid Agonist Start: 02-11-2023 take 1 tablet by mouth every hour [place] 325 mg-5 mg oral tablet See Instructions, 1 tab(s), Refill(s) 0, Take 1 hour prior to your procedure, [facility] #[id number], 170, cm, 02/11/23 14:01:00 EST, Height/Length Dosing, 91, kg, 01/15/23 15:22:00 EDT, Weight Dosing Start Date: 02/11/23 Status: Ordered acetaminophen 325 mg / traMADol hydrochloride 37.5 mg oral tablet (3 sources) Opioid Agonist Start: 02-11-2023 Ultracet 325 mg-37.5 mg Tab See Instructions, 20 tab(s), Refill(s) 0, take 1-2 every 6 hrs prn for pain - following procedure, [facility] #[id number], 170, cm, 02/11/23 14:01:00 EST, Height/Length Dosing, 91, kg, 01/15/23 15:22:00 EDT, Weight Dosing Start Date: 02/11/23 Status: Ordered amLODIPine 10 mg oral tablet (11 sources) Dihydropyridine Calcium Channel Maynor Start: 01-15-2023 amLODIPine 10 mg Tab 10 mg = 1 tab(s) Start Date: 01/15/23 Status: Ordered cephalexin 500 mg oral capsule (4 sources) Cephalosporin Antibacterial Start: 10-18-2023 take 500 mg by mouth twice daily Cephalexin Active 500 MG PO Twice daily 01 10October 18, 2023 12:00am Start: 01-15-2023 take 1 capsule by [facility] once daily, then take 1 capsule by mouth once daily Keflex 500 mg Cap See Instructions, 1 cap po day prior to procedure, 1 cap po day of procedure following procedure, # 2 cap(s), Refills(s) 0, Pharmacy: [facility] #[id number], 170, cm, 01/15/23 15:22:00 EDT, Height/Length Dosing, 91, kg, 01/15/23 15:22:00 EDT, Weight Dosing Start Date: 01/15/23 Status: Ordered diazePAM 10 mg oral tablet (3 sources) Benzodiazepine Start: 02-11-2023 Valium 10 mg Tab See Instructions, Take 1 hr prior to procedure, # 1 tab(s), Refills(s) 0, Pharmacy: [facility] #[id number], 170, cm, 02/11/23 14:01:00 EST, Height/Length Dosing, 91, kg, 01/15/23 15:22:00 EDT, Weight Dosing Start Date: 02/11/23 Status: Ordered dutasteride 0.5 mg oral capsule (3 sources) 5-alpha Reductase Inhibitor Start: 01-15-2023 dutasteride 0.5 mg Cap 0.5 mg = 1 cap(s) Start Date: 01/15/23 Status: Ordered lisinopril 40 mg oral tablet (11 sources) Angiotensin Converting Enzyme Inhibitor Start: 01-15-2023 lisinopril 40 mg Tab 40 mg = 1 tab(s) Start Date: 01/15/23 Status: Ordered metFORMIN hydrochloride 500 mg oral tablet (11 sources) Biguanide Start: 01-15-2023 metformin 500 mg Tab 500 mg = 1 tab(s) Start Date: 01/15/23 Status: Ordered oxybutynin chloride 5 mg oral tablet (3 sources) Cholinergic Muscarinic Antagonist Start: 02-11-2023 take 1 tablet by mouth twice daily oxybutynin 5 mg Tab See Instructions, 1 tab(s) Oral bid after procedure, # 10 tab(s), Refills(s) 0, Pharmacy: [facility] #[id number], 170, cm, 02/11/23 14:01:00 EST, Height/Length Dosing, 91, kg, 01/15/23 15:22:00 EDT, Weight Dosing Start Date: 02/11/23 Status: Ordered pioglitazone 30 mg oral tablet (11 sources) Peroxisome Proliferator Receptor alpha Agonist, Peroxisome Proliferator Receptor gamma Agonist, Thiazolidinedione Start: 01-15-2023 pioglitazone 30 mg Tab 30 mg = 1 tab(s) Start Date: 01/15/23 Status: Ordered sildenafil 100 mg oral tablet (11 sources) Phosphodiesterase 5 Inhibitor Start: 10-03-2023 take 100 mg by mouth once daily Sildenafil Active 100 MG PO Daily October 03, 2023 12:00am Start: 01-15-2023 sildenafil 100 mg, As Directed Start Date: 01/15/23 Status: Ordered tamsulosin hydrochloride 0.4 mg oral capsule (10 sources) alpha-Adrenergic Maynor Start: 10-30-2023 take 1 capsule by mouth once daily tamsulosin 0.4 mg Cap 0.4 mg = 1 cap(s), Oral, Daily, # 90 cap(s), Refills(s) 3, [facility]acy: [facility] #[id number], 170, cm, 10/30/23 7:44:00 EDT, Height/Length Dosing, 91, kg, 10/30/23 7:44:00 EDT, Weight Dosing Start Date: 10/30/23 Status: Ordered Start: 01-15-2023 take 0.4 mg by mouth once daily in the evening Tamsulosin Active 0.4 MG PO Every evening October 03, 2023 12:00am Completed/Discontinued Medications Medication Drug Class(es) Dates Sig (Normalized) Sig (Original) ciprofloxacin 500 mg oral tablet (6 sources) Quinolone Antimicrobial Start: 06-18-2023 take 1 tablet by mouth once daily Cipro 500 mg Tab 500 mg = 1 tab(s), Oral, Daily, take one tab day before procedure and one tab after procedure, # 2 tab(s), Refills(s) 0, [facility]: [facility] #[id number], 170, cm, 06/18/23 14:34:00 EDT, Height/Length Dosing, 91, kg, 06/18/23 14:34:00 EDT, Weight Dosing Start Date: 06/18/23 Status: Ordered Start: 02-11-2023 ciprofloxacin 500 mg Tab See Instructions, Start 3 days prior to procedure - twice a day for 7 days, # 14 tab(s), Refills(s) 0, [facility]acy: [facility] #[id number], 170, cm, 02/11/23 14:01:00 EST, Height/Length Dosing, 91, kg, 01/15/23 15:22:00 EDT, Weight Dosing Start Date: 02/11/23 Status: Ordered naproxen sodium 220 mg oral tablet (2 sources) Nonsteroidal Anti-inflammatory Drug Start: 10-03-2023 End: 10-18-2023 take 2 tablets by mouth twice daily Naproxen Sodium (Aleve) 220 mg tablet Discontinued 440 MG PO Twice daily October 03, 2023 12:00am October 18, 2023 12:57pm Problems Active Problems Problem Classification Problem Date Documented Da te Episodic/Chronic Allergic reactions (9 sources) Eczema 01-15-2023 Episodic Diabetes mellitus without complication (13 sources) Diabetes mellitus; Translations: [Type 2 diabetes mellitus without complication] Onset: 4 01-15-2023 Chronic Diverticulosis and diverticulitis (9 sources) Diverticulosis of colon 01-15-2023 Chronic Esophageal disorders (9 sources) Gastroesophageal reflux disease 01-15-2023 Chronic Essential hypertension (12 sources) Hypertensive disorder; Translations: [Essential (primary) hypertension] Onset: 4 01-15-2023 Chronic Genitourinary symptoms and ill-defined conditions (9 sources) Nocturia 01-15-2023 Episodic Hemorrhoids (9 sources) Hemorrhoids 01-15-2023 Episodic Hyperplasia of prostate (17 sources) Benign prostatic hypertrophy with outflow obstruction; Translations: [Benign prostatic hyperplasia with lower urinary tract symptoms] Onset: 3 01-15-2023 Chronic Other diseases of kidney and ureters (4 sources) Urinary tract obstruction; Translations: [Other obstructive and reflux uropathy] Onset: 3 Episodic Other diseases of kidney and ureters (9 sources) Cyst of kidney 01-15-2023 Episodic Other gastrointestinal disorders (9 sources) Irritable bowel syndrome 01-15-2023 Chronic Other male genital disorders (12 sources) Impotence; Translations: [Male erectile dysfunction, unspecified] Onset: 4 01-15-2023 Chronic Other screening for suspected conditions (not mental disorders or infectious disease) (2 sources) Encounter for screening for malignant neoplasm of prostate; Translations: [Screening for malignant neoplasm done] Onset: 2 Episodic Phlebitis; thrombophlebitis and thromboembolism (16 sources) Acute embolism and thrombosis of unspecified deep veins of right lower extremity; Translations: [Embolism and thrombosis of superficial veins of right lower extremity] Onset: 2 Episodic Residual codes; unclassified (2 sources) Acquired absence of other genital organ(s); Translations: [Other postprocedural status] Onset: 10-18-2023 Episodic Spondylosis; intervertebral disc disorders; other back problems (9 sources) Low back pain 01-15-2023 Episodic Unclassified (5 sources) Patient encounter status 06-18-2023 Past or Other Problems Problem Classification Problem Date Documented Da te Episodic/Chronic Other non-traumatic joint disorders (1 source) Effusion, right ankle; Translations: [EFFUSION RIGHT ANKLE] Onset: 02-04-2022 Episodic Results Test Name Value Interpretation Reference Range Facility Ambulatory Visit Summaryon 0 10-30-2023 Ambulatory Visit Summary Ambulatory Visit Summary GIGI BOONE :1970 Visit Date:10/30/2023 Ambulatory Visit Instructions Your Diagnosis BPH with obstruction/lower urinary tract symptoms ED (erectile dysfunction) Your Care Team Attending Physician - Kyle HARRY MD Primary Care Physician - Abdulkadir Lockett MD This Is Your Medications List tamsulosin (tamsulosin 0.4 mg Cap) Contact prescribing physician if questions or concerns amlodipine (amLODIPine 10 mg Tab) lisinopril (lisinopril 40 mg Tab) metformin (metformin 500 mg Tab) pioglitazone (pioglitazone 30 mg Tab) sildenafil [Image Removed: STOP]Stop taking these medications ciprofloxacin (Cipro 500 mg Tab) Procedures Performed Cystoscopy (03/25/2023), Transurethral insertion of prostatic urethral lift implant (03/25/2023), Cystoscopy (02/11/2023), TRUS - Transrectal ultrasonography (02/11/2023), Colonoscopy (09/26/2016). Discharge Vitals Height 170 cm Height 67 in Weight 91 kg Weight 200.2 lb BMI 31.49 What to do next Scheduled Follow-Up Appointments Saturday 8:15 AM EDT With: Kyle HARRY MD Where: [facility] [address], [address] [place] [address]- You Need to Schedule the Following Appointments Follow Up with Kyle HARRY MD, URL When: Where: [address] [facility] [address] [place] [address]- Medications What How Much When Instructions Changed tamsulosin (tamsulosin 0.4 mg Cap) 1 Capsules By Mouth Every day Pickup at [facility] #[id number] Unchanged amlodipine (amLODIPine 10 mg Tab) 1 Tablets Contact prescribing physician if questions or concerns Unchanged lisinopril (lisinopril 40 mg Tab) 1 Tablets Contact prescribing physician if questions or concerns Unchanged metformin (metformin 500 mg Tab) 1 Tablets Contact prescribing physician if questions or concerns Unchanged pioglitazone (pioglitazone 30 mg Tab) 1 Tablets Contact prescribing physician if questions or concerns Unchanged sildenafil 100 Milligram As Directed Contact prescribing physician if questions or concerns Pharmacy Information [facility] #[id number]: [address] [place], [place] [phone] What How Much When Comments Stop Taking ciprofloxacin (Cipro 500 mg Tab) 1 Tablets By Mouth Every day take one tab day before procedure and one tab after procedure Allergies No Known Allergies Problems Ongoing - Any problem that you are currently receiving treatment for. BPH with obstruction/lower urinary tract symptoms Diabetes Diverticula of colon Eczema ED (erectile dysfunction) GERD (gastroesophageal reflux disease) Hemorrhoid Hypertension IBS (irritable bowel syndrome) Lower back pain Nocturia Renal cyst Screening PSA (prostate specific antigen) Venous thrombosis of leg Patient Survey You may receive a survey via text or e-mail asking about your office visit. Please share your experience with us by completing your survey. We appreciate your feedback and thank you for choosing us for your care. Education Materials Benign Prostatic Hyperplasia Benign prostatic hyperplasia (BPH) is an enlarged prostate gland that is caused by the normal aging process. The prostate may get bigger as a man gets older. The condition is not caused by cancer. The prostate is a walnut-sized gland that is involved in the production of semen. It is located in front of the rectum and below the bladder. The bladder stores urine. The urethra carries stored urine out of the body. An enlarged prostate can press on the urethra. This can make it harder to pass urine. The buildup of urine in the bladder can cause infection. Back pressure and infection may progress to bladder damage and kidney (renal) failure. What are the causes? This condition is part of the normal aging process. However, not all men develop problems from this condition. If the prostate enlarges away from the urethra, urine flow will not be blocked. If it enlarges toward the urethra and compresses it, there will be problems passing urine. What increases the risk? This condition is more likely to develop in men older than 50 years. What are the signs or symptoms? Symptoms of this condition include: ? Getting up often during the night to urinate. ? Needing to urinate frequently during the day. ? Difficulty starting urine flow. ? Decrease in size and strength of your urine stream. ? Leaking (dribbling) after urinating. ? Inability to pass urine. This needs immediate treatment. ? Inability to completely empty your bladder. ? Pain when you pass urine. This is more common if there is also an infection. ? Urinary tract infection (UTI). How is this diagnosed? This condition is diagnosed based on your medical history, a physical exam, and your symptoms. Tests will also be done, such as: ? A po (more content not included)... [facility] Provider Letteron 10-30-2023 Provider Letter Provider Letter October 30, [address] [id number] : 1970 To Whom It May Concern, Please excuse above patient from work. Gigi may return without restrictions on 11/18/23. Restrictions: None as of 11/18/23 Comments: If questions or verification needed, call office at [phone] option 3. Sincerely, Kyle Harry MD. [facility] Urology Office/Clinic Noteon 10-30-2023 Urology Office/Clinic Note Urology Office/Clinic Note Chief Complaint follow up to TURP [facility] Staff 53 year old male here to discuss TURP path done 10/17/23. Previous DX: BPH w/LUTS, ED. S/P Cysto/TRUS done 02/11/23, Cysto 08/19/23 and UroLift done 03/25/23. Pt. taking Flomax still per pcp states that he has 1 pill left and wanted to know if he should keep taking this, states it never did work for him. Dysuria:no Incomplete bladder emptying: no Hematuria: no Frequency: no Urgency: no Nocturia: 2x Stream: good stream Leaking: no Post void dripping: no Wearing pads/ Depends: no Urge incontinence: no Stress incontinence: no Incontinence without Sensory Awareness: no Abdominal pain: no Flank pain: no Sexual complaints: no History of Present Illness Tests reviewed: reviewed path and PSA. I have reviewed the previous health record information and history for this patient from Dr. Harry. I have reviewed and verified the staff HPI to be accurate for this encounter. There have been no associated fever, chills, flank pain, or blood in the urine. Denies any urinary infections since last encounter. Review of Systems PHQ Score Initial Depression Screen Score: 0 SCORE ROS - Provider Constitutional: denies weight loss, denies hot flashes. Eyes: denies eye problems. Gastrointestinal: denies nausea, denies vomiting. Cardiovascular: denies chest pain or angina. Integumentary: no dryness Musculoskeletal: denies musculoskeletal symptoms. ENMT: denies otolaryngeal symptoms. Respiratory: no shortness of breath. Heme/Lymph: denies easy bleeding tendency, denies easy bruising tendency. Psychiatric: no confusion, no anxiety. Genitourinary: See HPI. Physical Exam Vitals & Measurements HT: 67 in HT: 170 cm WT: 91 kg WT: 200.2 lb BMI: 31.49 General Appearance: alert, no distress, well nourished, well developed male. Assessment/Plan Gigi is a 53 yo male here for po TURP. Has seen Amisha Zapata PA-C in the past. Pt accompanied by today. Portions of this record may have been created with voice recognition artificial intelligence software, specifically [employer], [employer] and or [employer]. Substitutions may have occurred due to the inherent limitations of voice recognition and artificial intelligence software. 1. BPH with obstruction/lower urinary tract symptoms (N40.1: Benign prostatic hyperplasia with lower urinary tract symptoms) PSA: 02/10/22 - 1.53 10/13/22 - 1.20 & 24.2% [2] PCP checks PSA. PVR (cc): 05/01/23 - 107 (116mL) 06/18/23 - 190 S/p Cysto/TRUS 02/11/23 - Moderate hypertrophy, 3.5 cm long, mainly lateral lobe hypertrophy and high riding bladder neck, kissing prostate . S/p UroLift 03/25/23 - 4 implants. S/p cysto 08/19/23 ~obstructed, moderate hypertrophy, positive median bar, beginning of median lobe. Bladder neg for b.t. or stones. Positive foreign body consisting of a UroLift clip. Utilizing an alligator forceps, with difficulty secondary to small median lobe, the UroLift clip was removed and discarded. S/p urodynamics 08/19/23 ~demonstrates a significant positive pressure flow study with a maximum bladder pressure of 183 cm of water with a 148 cc PVR. This, combined with findings on cystoscopy demonstrating continued presence of obstruction especially with a high riding bladder neck and the beginning of a median lobe leads to the recommendation for prostate resection under anes. S/p 6g TURP 10/17/23. Required hospitalist consultation for management of HTN and diabetes. Ortiz removed 10/23/23. Path ~Glandular and stromal hyperplasia. Results reviewed with pt. Has failed Flomax, Dutasteride, and Uribel in the past due to no improvement. Pt has even been treated with a steroid in the past. IPSS 4 (29-30) Very pleased since procedure. Stream is strong. Pt shares that he is still taking Flomax managed through PCP, he only has 1 pill left. Will send new script for pt to remain on med until at least next visit. Will discuss weaning off of it at that time. Shares he has not had intercourse yet. Again discussed how coitus will be different since prostate resection. 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 2. ED (erectile dysfunction) (N52.9: Male erectile dysfunction, unspecified) Sildenafil 100mg PRN from PCP [1] Overall doing quite well. Here with his today. Already has a good flow. He should stay on his Flomax at this point. Refill sent. Plan to wean this off at next visit in 3 months. Pathology negative with 6 g removed. Assured him that he will not have a problem from any retained metal from his previous UroLift procedure he has pieces of metal were actually shaved out during the prostate surgery. The capsular nitinol portion with attached suture will remain at the capsule of the prostate. Follow-up With When Contact Information ROEL CAMPOS, [place] (more content not included)... [facility] Comment on above: Result Comment: Elec tronically Signed By: Kyle HARRY MD\.br\Date and Time Signed: 10/30/23 08:22 EDT\.br\Electronically Co-Signed By: Antonia Owens\.br\Date and Time Co-Signed: 10/30/23 08:16 EDT\.br\Electronically Co-Signed By: Antonia Owens\.br\Date and Time Co-Signed: 10/30/23 08:18 EDT\.br\Electronically Co-Signed By: Antonia Owens\.br\Date and Time Co-Signed: 10/30/23 08:19 EDT Ambulatory Visit Summaryon 0 10-23-2023 Ambulatory Visit Summary Ambulatory Visit Summary GIGI BOONE :1970 Visit Date:10/23/2023 Ambulatory Visit Instructions Your Care Team Attending Physician - Kyle HARRY MD Primary Care Physician - Abdulkadir Lockett MD This Is Your Medications List amlodipine (amLODIPine 10 mg Tab) ciprofloxacin (Cipro 500 mg Tab) lisinopril (lisinopril 40 mg Tab) metformin (metformin 500 mg Tab) pioglitazone (pioglitazone 30 mg Tab) sildenafil tamsulosin (tamsulosin 0.4 mg Cap) Procedures Performed Cystoscopy (03/25/2023), Transurethral insertion of prostatic urethral lift implant (03/25/2023), Cystoscopy (02/11/2023), TRUS - Transrectal ultrasonography (02/11/2023), Colonoscopy (09/26/2016). What to do next Scheduled Follow-Up Appointments Saturday 7:45 AM EDT With: Kyle HARRY MD Where: [facility] [place] [facility] Basic Metabolic Panelon 10-06 Creatinine Clr Calc Pharmacy 114.50 Normal [facility] Comment on above: Result Comment: PERF ORMED BY: [address] [place] [address] PATHOLOGIST OXIDATION OPERATOR NANCY WHITLOCK M.D. Performed By: #### H H, BMP #### [place] [address] [place] GFR/1.73 sq M.predicted MDRD (S/P/Bld) [Vol rate/Area] mL/min/{1.73_m2} Normal [facility] Comment on above: Performed By: #### H H, BMP #### [place] [address] [place] Calcium [Mass/volume] in Ser um or PlasmaOrdered By: Kyle Harry on 10-18-2023 Calcium [Mass/Vol] 8.5 mg/dL Low 8.6-10.3 [facility] Comment on above: Performed By: #### H H, BMP #### [place] [address] [place] Carbon dioxide, total [Moles /volume] in Serum or PlasmaOrdered By: Kyle Harry on 10-18-2023 CO2 [Moles/Vol] 22.0 mmol/L Normal 21.0-31.0 [facility] Comment on above: Performed By: #### H H, BMP #### [place] [address] [place] Chloride [Moles/volume] in S arpit or PlasmaOrdered By: Kyle Harry on 10-18-2023 Chloride [Moles/Vol] 107 mmol/L Normal 98-107 [facility] Comment on above: Performed By: #### H H, BMP #### [place] [address] [place] Creatinine [Mass/volume] in Serum or PlasmaOrdered By: Kyle Harry on 10-18-2023 Creatinine [Mass/Vol] 0.82 mg/dL Normal 0.70-1.30 [facility] Comment on above: Performed By: #### H H, BMP #### [place] [address] [place] Glucose [Mass/volume] in Ser um or PlasmaOrdered By: Kyle Harry on 10-18-2023 Glucose [Mass/Vol] 270 mg/dL High 70-100 [facility] Comment on above: ADA recommended refe rence rangeRandom Glucose Reference Range is dependent on time and content of last meal. Glucose of more than 200 mg/dL in a nonstressed, ambulatory subject supports the diagnosis of Diabetes Mellitus. Result Comment: [facility] Glucose Reference Range is dependent on time and content of last meal. Glucose of more than 200 mg/dL in a nonstressed, ambulatory subject supports the diagnosis of Diabetes Mellitus. ADA recommended reference range Performed By: #### H H, BMP #### [address] Hematocrit [Volume Fraction] of Blood by Automated countOrdered By: Kyle Harry on 10-18-2023 Hematocrit (Bld) [Volume fraction] 40.8 % Normal 38.8-50.0 [facility] Comment on above: Result Comment: PERF ORMED BY: [place] [address] PATHOLOGIST OXIDATION OPERATOR NANCY WHITLOCK M.D. Performed By: #### H H, BMP #### [address] Hemoglobin [Mass/volume] in BloodOrdered By: Kyle Harry on 10-18-2023 Hemoglobin (Bld) [Mass/Vol] 14.1 g/dL Normal 13.0-17.0 [facility] Comment on above: Performed By: #### H H, BMP #### [address] No Panel InformationOrdered By: Kyle Harry on 10-18-2023 Estimated GFR (CKD-EPI) > 60.0 mL/Min [facility] Creatinine Clearance (Chem 114.50 [facility] Potassium [Moles/volume] in Serum or PlasmaOrdered By: Kyle Harry on 10-18-2023 Potassium [Moles/Vol] 4.2 mmol/L Normal 3.5-5.1 [facility] Comment on above: Performed By: #### H H, BMP #### [address] Serum or plasma anion gap de terminationOrdered By: Kyle Harry on 10-18-2023 Anion gap [Moles/Vol] 12.2 mmol/L Normal 6.0-15.0 [facility] Comment on above: Performed By: #### H H, BMP #### [facility] [address] [place] [address] [place] Sodium [Moles/volume] in Ser um or PlasmaOrdered By: Kyle Harry on 10-18-2023 Sodium [Moles/Vol] 137 mmol/L Normal 136-145 [facility] Comment on above: Performed By: #### H H, BMP #### [place] [address] [place] Urea nitrogen [Mass/volume] in Serum or PlasmaOrdered By: Kyle Harry on 10-18-2023 Urea nitrogen [Mass/Vol] 12 mg/dL Normal 7-25 [facility] Comment on above: Performed By: #### H H, BMP #### [address] Capillary blood glucose lexie urement by glucometer (mass/volume)Ordered By: Kyle Harry on 10-17-2023 Glucose [Mass/Vol] 264 mg/dL Normal [facility] Comment on above: Random Glucose Refer ence Range is dependent on time and content of last meal. Glucose of more than 200 mg/dL in a nonstressed, ambulatory subject supports the diagnosis of Diabetes Mellitus. Result Comment: [facility] Glucose Reference Range is dependent on time and content of last meal. Glucose of more than 200 mg/dL in a nonstressed, ambulatory subject supports the diagnosis of Diabetes Mellitus. PERFORMED BY: [place] [address] PATHOLOGIST OXIDATION OPERATOR NANCY WHITLOCK M.D. Performed By: #### G LULS #### Point of Care testing , Glucose Poct Glucometerson 0 10-17-2023 Commemt1 Glu2: Cleaned Meter Normal [facility] Comment on above: Result Comment: PERF ORMED BY: [address] [place] [address] PATHOLOGIST OXIDATION OPERATOR NANCY WHITLOCK M.D. Performed By: #### G LULS #### Point of Care testing , Glucose [Mass/Vol] 268 mg/dL Normal [facility] Comment on above: Result Comment: [facility] Glucose Reference Range is dependent on time and content of last meal. Glucose of more than 200 mg/dL in a nonstressed, ambulatory subject supports the diagnosis of Diabetes Mellitus. Performed By: #### G LULS #### Point of Care testing , Glucose [Mass/Vol] 290 mg/dL Normal [facility] Comment on above: Result Comment: [facility] Glucose Reference Range is dependent on time and content of last meal. Glucose of more than 200 mg/dL in a nonstressed, ambulatory subject supports the diagnosis of Diabetes Mellitus. PERFORMED BY: [place] [address] PATHOLOGIST OXIDATION OPERATOR NANCY WHITLOCK M.D. Performed By: #### B MP, PT, CBC, PTT #### [address] 10-17-2023 Specimen: [id number] Received: 10/17/23 Status: TERRI Marino Num: [id number] Spec Type: Surgical Subm Dr: Kyle Harry MD Tissues: A Prostate - Tur (PROSTATE TISSUE) Procedures: HE/10, Gross/Micro L4 Age/ Patient Sex Location Account Attending Physician Gigi Boone 53/M [place] [id number] Kyle Harry MD SPEC NUM: [id number] RECD: 10/17/23 STATUS: TERRI MARINO NUM: [id number] VICKIE: 10/17/[address]: Kyle Harry MD ENTERED: 10/17/[address] [facility] [address]: SPEC TYPE: Surgical DEPT: S ORDERED: HE/10, Gross/Micro L4 ORDERED: HE10, Gross/Micro L4 Pathological Diagnosis Prostate, transurethral resection of the prostate (TURP): - Glandular and stromal hyperplasia Clinical Information BPH with LUTZ Gross Description Received in formalin labeled with the patient's name, date of and prostate tissue is a 6 g, 4.1 x 3.9 x 1.5 cm aggregate of rubbery and cauterized castillo-pink tissue. No areas of discoloration or calcification are identified. The specimen is entirely submitted in A1?A6. CPT Codes 89141 Specimen: [id number] Received: 10/17/23 Status: TERRI Marino Num: [id number] Spec Type: Surgical Subm Dr: Kyle Harry MD Tissues: A Prostate - Tur (PROSTATE TISSUE) Procedures: Pineda Gross/Micro L4 Patient: Gigi Boone [id number] (Continued) Signed (signature on file) Fadi Victoria MD 10/21/23 1541 Normal [facility] No Panel InformationOrdered By: Kyle Harry on 10-17-2023 Bedside Glucose Comment Glu2: cleaned meter [facility] Activated partial thrombopla stin time (aPTT) in platelet poor plasma by coagulation aOrdered By: Kyle Harry on 10-03-2023 aPTT Coag (PPP) [Time] 30.7 s 25.1-36.5 [facility] Comment on above: A hematocrit value g reater than 55% may lead to inaccurate results in coagulation testing. Patients having hematocrit values >55% require a special collection tube for coagulation studies. Please contact the laboratory at [phone] for redraw instructions. Automated basophil %Ordered By: Kyle Harry on 10-03-2023 Basophils/100 WBC (Bld) 0.9 % Normal . [facility] Comment on above: Performed By: #### B MP, PT, CBC, PTT #### [facility] [address] [place] [address] Automated basophil countOrde red By: Kyle Harry on 10-03-2023 Basophils (Bld) [#/Vol] 0.1 10*3/uL Normal 0.0-0.2 [facility] Comment on above: Result Comment: PERF ORMED BY: [place] [address] PATHOLOGIST OXIDATION OPERATOR NANCY WHITLOCK M.D. Performed By: #### B MP, PT, CBC, PTT #### [facility] [address] [place] [address] Automated blood monocyte cou ntOrdered By: Kyle Harry on 10-03-2023 Monocytes (Bld) [#/Vol] 0.5 10*3/uL Normal 0.0-0.8 [facility] Comment on above: Performed By: #### B MP, PT, CBC, PTT #### [address] Automated eosinophil %Ordere d By: Kyle aHrry on 10-03-2023 Eosinophils/100 WBC (Bld) 1.5 % Normal . [facility] Comment on above: Performed By: #### B MP, PT, CBC, PTT #### [address] Automated eosinophil countOr dered By: Kyle Harry on 10-03-2023 Eosinophils (Bld) [#/Vol] 0.1 10*3/uL Normal 0.0-0.45 [facility] Comment on above: Performed By: #### B MP, PT, CBC, PTT #### [address] Automated monocyte %Ordered By: Kyle Harry on 10-03-2023 Monocytes/100 WBC (Bld) 7.1 % Normal . [facility] Comment on above: Performed By: #### B MP, PT, CBC, PTT #### [address] Automated neutrophil %Ordere d By: Kyle Harry on 10-03-2023 Neutrophils/100 WBC (Bld) 53.4 % Normal . [facility] Comment on above: Performed By: #### B MP, PT, CBC, PTT #### [address] Basic Metabolic Panelon 09-07 GFR/1.73 sq M.predicted MDRD (S/P/Bld) [Vol rate/Area] mL/min/{1.73_m2} Normal [facility] Comment on above: Performed By: #### B MP, PT, CBC, PTT #### [address] Calcium [Mass/volume] in Ser um or PlasmaOrdered By: Kyle Harry on 10-03-2023 Calcium [Mass/Vol] 9.2 mg/dL Normal 8.6-10.3 [facility] Comment on above: Result Comment: PERF ORMED BY: [place] [address] PATHOLOGIST OXIDATION OPERATOR NANCY WHITLOCK M.D. Performed By: #### B MP, PT, CBC, PTT #### [address] Carbon dioxide, total [Moles /volume] in Serum or PlasmaOrdered By: Kyle Harry on 10-03-2023 CO2 [Moles/Vol] 26.6 mmol/L Normal 21.0-31.0 [facility] Comment on above: Performed By: #### B MP, PT, CBC, PTT #### [address] Chloride [Moles/volume] in S arpit or PlasmaOrdered By: Kyle Harry on 10-03-2023 Chloride [Moles/Vol] 104 mmol/L Normal 98-107 [facility] Comment on above: Performed By: #### B MP, PT, CBC, PTT #### [address] Complete Blood Count Auto Di ffon 10-03-2023 Mean Corpuscular HGB Conc 34.2 g/dL Normal 32.5-35.6 [facility] Comment on above: Performed By: #### B MP, PT, CBC, PTT #### [address] NRBC% 0.1 /100{WBC} Normal 0-0.5 [facility] Comment on above: Performed By: #### B MP, PT, CBC, PTT #### [address] Creatinine [Mass/volume] in Serum or PlasmaOrdered By: Kyle Harry on 10-03-2023 Creatinine [Mass/Vol] 0.89 mg/dL Normal 0.70-1.30 [facility] Comment on above: Performed By: #### B MP, PT, CBC, PTT #### [address] ECG 12 lead ECGon 10-03-2023 ECG 12 lead ECG [facility] [address] [place] [address] [place] [address] Electrocardiograph Report Signed Patient: Gigi Boone MR#: [id number] 7 : 1970 Acct:[id number] Age/Sex: 53 / M ADM Date: 10/03/23 Loc: PS Room: Type: [facility] Attending Dr: Kyle Harry MD Ordering Provider: Kyle Harry MD Date of Service: 10/03/23 ECG/ECG 12 lead ECG: PST Copies to: Test Reason : Blood Pressure : / mmHG Vent. Rate : 072 BPM Atrial Rate : 072 BPM P-R Int : 174 ms QRS Dur : 084 ms QT Int : 370 ms P-R-T Axes : 031 -53 037 degrees QTc Int : 405 ms Normal sinus rhythm Left anterior fascicular block Abnormal ECG No previous ECGs available Confirmed by TANYA CAMPOS [facility] ([id number]) on 10/03/2023 5:01:32 PM Referred By: ROEL Electronically Signed By:GROVER MCCANN MD [facility] Transcribed By: TARYN Signed By Miller Mccann MD 10/03/23 1701 Normal [facility] Erythrocyte distribution wid th [Ratio] by Automated countOrdered By: Kyle Harry on 10-03-2023 Erythrocyte distribution width (RBC) [Ratio] 13.3 % Normal 12.0-14.8 [facility] Comment on above: Performed By: #### B MP, PT, CBC, PTT #### [facility] [address] [place] [id number] [place] Erythrocytes [#/volume] in B lood by Automated countOrdered By: Kyle Harry on 10-03-2023 RBC (Bld) [#/Vol] 4.95 10*6/uL Normal 3.90-5.60 [facility] Comment on above: Performed By: #### B MP, PT, CBC, PTT #### [facility] [address] [place] [address] [place] Glucose [Mass/volume] in Ser um or PlasmaOrdered By: Kyle Harry on 10-03-2023 Glucose [Mass/Vol] 230 mg/dL High 70-100 [facility] Comment on above: ADA recommended refe rence rangeRandom Glucose Reference Range is dependent on time and content of last meal. Glucose of more than 200 mg/dL in a nonstressed, ambulatory subject supports the diagnosis of Diabetes Mellitus. Result Comment: [facility] Glucose Reference Range is dependent on time and content of last meal. Glucose of more than 200 mg/dL in a nonstressed, ambulatory subject supports the diagnosis of Diabetes Mellitus. ADA recommended reference range Performed By: #### B MP, PT, CBC, PTT #### [facility] [address] Hematocrit [Volume Fraction] of Blood by Automated countOrdered By: Kyle Harry on 10-03-2023 Hematocrit (Bld) [Volume fraction] 41.6 % Normal 38.8-50.0 [facility] Comment on above: Performed By: #### B MP, PT, CBC, PTT #### [facility] [address] Hemoglobin [Mass/volume] in BloodOrdered By: Kyle Harry on 10-03-2023 Hemoglobin (Bld) [Mass/Vol] 14.2 g/dL Normal 13.0-17.0 [facility] Comment on above: Performed By: #### B MP, PT, CBC, PTT #### [facility] [address] INR in Platelet poor plasma by Coagulation assayOrdered By: Kyle Harry on 10-03-2023 INR Coag (PPP) [Relative time] 1.0 {INR} Normal [facility] Comment on above: INR Therapeutic Rang e A) Pre- and Peroperative OAT started two weeks before surgery. NOT HIP SURGERY: 1.5 - 2.5 HIP SURGERY: 2 - 3B) Primary and secondary prevention of venous THROMBOSIS: 2 - 3C) Active venous thrombosis, pulmonary embolismand prevention of recurrent venous thrombosis: 2 - 3D) Prevention of arterial thromboembolismincluding patients with mechanical heart valves: 3 - 4.5 Result Comment: INR Therapeutic Range A) Pre- and Peroperative OAT started two weeks before surgery. NOT HIP SURGERY: 1.5 - 2.5 HIP SURGERY: 2 - 3 B) Primary and secondary prevention of venous THROMBOSIS: 2 - 3 C) Active venous thrombosis, pulmonary embolism and prevention of recurrent venous thrombosis: 2 - 3 D) Prevention of arterial thromboembolism including patients with mechanical heart valves: 3 - 4.5 Performed By: #### B MP, PT, CBC, PTT #### [address] Leukocytes [#/volume] correc cande for nucleated erythrocytes in Blood by Automated counOrdered By: Kyle Harry on 10-03-2023 WBC corrected for nucl RBC Auto (Bld) [#/Vol] 7.2 10*3/uL 4.1-10.5 [facility] Leukocytes [#/volume] in Blo od by Automated countOrdered By: Kyle Harry on 10-03-2023 WBC (Bld) [#/Vol] 7.2 10*3/uL Normal 4.1-10.5 [facility] Comment on above: Performed By: #### B MP, PT, CBC, PTT #### [address] Lymphocytes [#/volume] in Bl ood by Automated countOrdered By: Kyle Harry on 10-03-2023 Lymphocytes (Bld) [#/Vol] 2.7 10*3/uL Normal 1.00-4.8 [facility] Comment on above: Performed By: #### B MP, PT, CBC, PTT #### [address] Lymphocytes/100 leukocytes i n Blood by Automated countOrdered By: Kyle Harry on 10-03-2023 Lymphocytes/100 WBC (Bld) 37.1 % Normal . [facility] Comment on above: Performed By: #### B MP, PT, CBC, PTT #### [facility] [address] [place] [address] MCH [Entitic mass] by Automa cande countOrdered By: Kyle Harry on 10-03-2023 MCH (RBC) [Entitic mass] 28.7 pg Normal 27.5-35.2 [facility] Comment on above: Performed By: #### B MP, PT, CBC, PTT #### [address] MCHC Auto (RBC) [Mass/Vol]Or dered By: Kyle Harry on 10-03-2023 MCHC (RBC) [Mass/Vol] 34.2 g/dL 32.5-35.6 [facility] MCV [Entitic volume] by Auto mated countOrdered By: Kyle Harry on 10-03-2023 MCV (RBC) [Entitic vol] 83.9 fL Normal 83.5-101 [facility] Comment on above: Performed By: #### B MP, PT, CBC, PTT #### [address] Neutrophils [#/volume] in Bl ood by Automated countOrdered By: Kyle Harry on 10-03-2023 Neutrophils (Bld) [#/Vol] 3.9 10*3/uL Normal 1.8-7.7 [facility] Comment on above: Performed By: #### B MP, PT, CBC, PTT #### [address] No Panel InformationOrdered By: Kyle Harry on 10-03-2023 Estimated GFR (CKD-EPI) > 60.0 mL/Min [facility] Creatinine Clearance (Chem N/A [facility] Nucleated erythrocytes [Pres ence] in Blood by Automated countOrdered By: Kyle Harry on 10-03-2023 Nucleated RBC Auto Ql (Bld) 0.1 /100{WBC} 0-0.5 [facility] Partial Thromboplastin Timeo n 10-03-2023 aPTT Coag (Bld) [Time] 30.7 s Normal 25.1-36.5 [facility] Comment on above: Result Comment: A he matocrit value greater than 55% may lead to inaccurate results in coagulation testing. Patients having hematocrit values >55% require a special collection tube for coagulation studies. Please contact the laboratory at [phone] for redraw instructions. PERFORMED BY: [place] [address] PATHOLOGIST OXIDATION OPERATOR NANCY WHITLOCK M.D. Performed By: #### B MP, PT, CBC, PTT #### [address] Platelet mean volume [Entiti c volume] in Blood by Automated countOrdered By: Kyle Harry on 10-03-2023 Platelet mean volume (Bld) [Entitic vol] 9.0 fL Normal 6.6-10.1 [facility] Comment on above: Performed By: #### B MP, PT, CBC, PTT #### [facility] [address] Platelets [#/volume] in Bloo d by Automated countOrdered By: Kyle Harry on 10-03-2023 Platelets (Bld) [#/Vol] 233 10*3/uL Normal 150-450 [facility] Comment on above: Performed By: #### B MP, PT, CBC, PTT #### [facility] [address] Potassium [Moles/volume] in Serum or PlasmaOrdered By: Kyle Harry on 10-03-2023 Potassium [Moles/Vol] 4.2 mmol/L Normal 3.5-5.1 [facility] Comment on above: Performed By: #### B MP, PT, CBC, PTT #### [facility] [address] Prothrombin time (PT)Ordered By: Kyle Harry on 10-03-2023 PT Coag (PPP) [Time] 11.5 s Normal 9.0-12.9 [facility] Comment on above: A hematocrit value g reater than 55% may lead to inaccurate results in coagulation testing. Patients having hematocrit values >55% require a special collection tube for coagulation studies. Please contact the laboratory at [phone] for redraw instructions. Result Comment: A he matocrit value greater than 55% may lead to inaccurate results in coagulation testing. Patients having hematocrit values >55% require a special collection tube for coagulation studies. Please contact the laboratory at [phone] for redraw instructions. Performed By: #### B MP, PT, CBC, PTT #### [facility] [address] Serum or plasma anion gap de terminationOrdered By: Kyle Harry on 10-03-2023 Anion gap [Moles/Vol] 10.6 mmol/L Normal 6.0-15.0 [facility] Comment on above: Performed By: #### B MP, PT, CBC, PTT #### [facility] [address] [place] [id number] [facility] Sodium [Moles/volume] in Ser um or PlasmaOrdered By: Kylemonique Harry on 10-03-2023 Sodium [Moles/Vol] 137 mmol/L Normal 136-145 [facility] Comment on above: Performed By: #### B MP, PT, CBC, PTT #### [facility] [address] [place] [id number] [facility] Urea nitrogen [Mass/volume] in Serum or PlasmaOrdered By: Kyle Harry on 10-03-2023 Urea nitrogen [Mass/Vol] 15 mg/dL Normal 7-25 [facility] Comment on above: Performed By: #### B MP, PT, CBC, PTT #### [facility] [address] [place] [id number] [place] [employer] 10-01-2023 Forms [id number]#1.00TIFF Normal [facility] Forms [id number]#1.00TIFF Normal [facility] Consent for Procedure/Surger yon 08-19-2023 Consent for Procedure/Surgery [id number]#1.00TIFF [facility] Consent for Treatmenton 08-06 Consent for Treatment [id number]#1.00TIFF Normal [facility] Inpatient Patient Summaryon 08-19-2023 Inpatient Patient Summary [place] [id number] Clinical Summary Person Information Name: GIGI BOONE Age: 53 Years : 1970 Sex: Male PCP: Abdulkadir Lockett MD Marital Status: Race: White Ethnicity: Non- or Language: [place]ati Visit Id: Visit Reason: BPH WITH LUTS Speciality: Acuity: Enc Type: Outpatient Med Service: Surgery Arrival: 08/19/2023 12:30:08 Discharge: Dispo Type: Address: [address] [place] [id number] Provider Notes: Diagnosis: Other obstructive and reflux uropathy Problems Active Screening PSA (prostate specific antigen) Nocturia BPH with obstruction/lower urinary tract symptoms ED (erectile dysfunction) Venous thrombosis of leg Diabetes Renal cyst Diverticula of colon Hemorrhoid IBS (irritable bowel syndrome) Eczema GERD (gastroesophageal reflux disease) Hypertension Lower back pain Smoking Status: Functional Status: Sensory Deficits: History of Falls: Mobility Assistance Prior to Admission: ADLs: Current Level of Assistance for Self-Care/Mobility: Cognitive Status: Allergies No Known Allergies Laboratory or Other Results This Visit (last charted value for your 08/19/2023 visit) No Laboratory or Other Results This Visit Measurements: Height: Weight: Blood Pressure: Not Valued / Not Valued BMI: Procedures No Procedures Documented Immunizations No Immunizations Documented This Visit Final Med List: amlodipine (amLODIPine 10 mg Tab) 1 Tablets. ciprofloxacin (Cipro 500 mg Tab) 1 Tablets By Mouth every day. take one tab day before procedure and one tab after procedure. Refills: 0. lisinopril (lisinopril 40 mg Tab) 1 Tablets. metformin (metformin 500 mg Tab) 1 Tablets. pioglitazone (pioglitazone 30 mg Tab) 1 Tablets. sildenafil 100 Milligram As Directed. tamsulosin (tamsulosin 0.4 mg Cap) 1 Capsules. Care Team Members: Attending Physician: Kyle HARRY MD Consulting Physician: Referring Physician: Kyle HARRY MD Follow up: With: Address: When: Kyle HARRY [address] [place] [address], [address], [place] [id number] [facility] (1) Comments: Please continue to take the Flomax at 0.4 mg daily. As you witnessed, I did remove the bladder foreign body which seems to be a UroLift clip. We will proceed with prostate resection as soon as my schedule allows. Have a great day. Patient Education Information: EU - Cystoscopy Discharge Instructions (Custom) [facility] IntraOperative Documentson 0 08-19-2023 IntraOperative Documents [id number]#1.00TIFF Normal [facility] IntraOperative Documents [id number]#1.00TIFF Normal [facility] Main OR Intraoperative Recor don 08-19-2023 Main OR Intraoperative Record IntraOp Document Type FTURO Summary Primary Physician: Kyle HARRY MD Finalized Date/Time: 08/19/23 14:27:56 Pt. Name: GIGI BOONE Tate /Sex: 1970 Male Med Rec #: [id number] Physician: Kyle HARRY MD Financial #: [id number] Pt. Type: O Room/Bed: / Admit/Disch: 08/19/23 12:30:08 - Institution: Case Times FTURO Entry 1 Patient Times In Room 08/19/23 14:05:00 Out Room 08/19/23 14:25:00 Procedure Times Start 08/19/23 14:08:00 Stop 08/19/23 14:20:00 Anesthesia Times Last Modified By: Madiha PRIETO, Emma Caban 08/19/23 14:20:38 Case Attendance FTURO Entry 1 Entry 2 Entry 3 Case Attendee Kyle HARRY MD, RN, Patrick Maria Role Performed Surgeon - Primary Christmas Tree Contractor - Primary Scrub - Primary Time In 08/19/23 14:05:00 08/19/23 14:05:00 08/19/23 14:05:00 Time Out 08/19/23 14:25:00 08/19/23 14:25:00 08/19/23 14:25:00 Procedure CYSTOSCOPY LOCAL(.) CYSTOSCOPY LOCAL(.) CYSTOSCOPY LOCAL(.) Comments Last Modified By: Madiha PRIETO, Emma Cleary RN, Emma Cleary RN, Emma Caban 08/19/23 Usha Caban 08/19/23 Usha Caban 08/19/23 14:20:42 14:20:42 14:20:42 Surgical Procedures FTURO Entry 1 Procedure Description Procedure CYSTOSCOPY LOCAL Modifiers . Surgeon Description CYSTOSCOPY Primary Procedure Yes Primary Surgeon Kyle HARRY MD Start 08/19/23 14:08:00 Stop 08/19/23 14:20:00 Anesthesia Type Local Surgical Service Urology Wound Class 2 - Clean-Contaminated Last Modified By: Emma Cleary RN 08/19/23 14:20:41 General Case Data FTURO Pre-Care Text: Classifies surgical wound, implements aseptic technique, initiates traffic control Entry 1 Case Information OR URO 1 FT Case Level None Wound Class 2 - Clean-Contaminated Specialty Urology Preop Diagnosis BPH WITH LUTS Postop Same As Preop Yes Postop Diagnosis BPH WITH LUTS Outcomes Met? Yes Last Modified By: Emma Cleary RN 08/19/23 14:02:43 Post-Care Text: The patient is free from signs and symptoms of infection EU IntraOp - FTURO Pre-Care Text: Implements protective measures prior to operative or invasive procedure, confirms identity before the operative or invasive procedure, verifies operative procedure, surgical site, and laterality Entry 1 EU Perioperative Protocols Procedure(s) CYSTOSCOPY LOCAL(.) Patient Identity Birthday, ID Band Verified (select at Check, Patient least 2): Participation Consents / H and P HandP, Surgery/Procedure Operative Site N/A Verified Consent Marking Verified Surgical Site Yes Laterality Verified n/a Verified Procedure Verified Yes Correct Patient Yes Position Verified Availability Equipment, Medication Time Out ROEL CAMPOS, Kyle Caban, Verified (If Participants Emma Cleary RN Applicable) Davie Natarajan Kendall R Time Out Complete 08/19/23 14:08:00 Allergies Reviewed? Yes Allergies Reviewed Self/Patient With Body Position Supine Prep Area PENIS Prep Agents Betadine Solution Skin. Condition Unable to Visualize Description CLOTHED Additional None Specimens Collected Vitals - EU Blood Pressure 121/87 Pulse 89 bpm Respirations 16 br/min SPO2 97 % IandO - EU Outcomes Met? Yes Last Modified By: Emma Cleary RN 08/19/23 14:09:21 Post-Care Text: The patient is free from signs and symptoms of injury caused by extraneous objects Sign Out FTURO Entry 1 Before Patient Leaves OR Nurse verbally Yes Nurse verbally Yes confirms with the confirms with the team the name of team that the procedure(s) instrument, sponge, recorded and needle counts are correct (or N/A) Nurse verbally n/a Nurse verbally Yes confirms with the confirms with the team how the team whether there specimen is labeled are any equipment (including patient problems to be name), if applicable addressed Sign Out Complete 08/19/23 14:20:00 Last Modified By: Emma Cleary RN 08/19/23 14:20:41 Case Comments Finalized By: Emma Cleary RN Document Signatures Signed By: Emma Cleary RN 08/19/23 14:27 Normal [facility] Main OR Preoperative Recordo n 08-19-2023 Main OR Preoperative Record Holding Area Document Type FTURO Summary Primary Physician: Kyle HARRY MD Finalized Date/Time: 08/19/23 13:53:24 Pt. Name: GIGI BOONE Tate /Sex: 1970 Male Med Rec #: [id number] Physician: Kyle HARRY MD Financial #: [id number] Pt. Type: O Room/Bed: / Admit/Disch: 08/19/23 12:30:08 - Institution: Case Times Holding FTURO Pre-Care Text: Verifies consent for planned procedure, identifies individual values and wishes concerning care, includes family members in perioperative teaching Secures patient's records' belongings, and valuables, maintains patient's dignity and privacy, and maintains patient confidentiality Entry 1 In Holding 08/19/23 13:50:00 Outcomes Met? Yes Last Modified By: TONI Parisi RN, Ruthann 08/19/23 13:50:47 Post-Care Text: The patient participates in decisions affecting his or her perioperative plan of care The patient's right to privacy is maintained Surgery Checklist FTURO Entry 1 Patient Birthday, ID Band Procedure History and Physical, Identification: Check, Patient Verification: Surgical Consent, With Participation Patient NPO after Midnight: n/a Personal Items clothes Comment: Limitations: none Complaints of Pain: Yes Pain Comment: back pain Skin Integrity Unable to Visualize Vitals - EU Blood Pressure 121/87 Pulse 89 bpm Respirations 16 br/min SPO2 97 % Additional None RN Reviewed Yes Specimens Collected Last Modified By: TONI Parisi RN, Ruthann 08/19/23 13:53:20 General Comments: had urodynamics Finalized By: TONI Parisi RN, Ruthann Document Signatures Signed By: TONI Parisi RN, Ruthann 08/19/23 13:53 Normal [facility] Operative Reporton Operative Report Patient: JONNY BOONE Age: 53 years Sex: Male : 1970 Associated Diagnoses: None Author: Kyle HARRY MD Procedure Operative Information Details: Date/ Time: 08/19/2023 14:25:00. Pre-Op Dx: Foreign body in bladder, initial encounter (AUV07-LM T19.1XXA, Working, Medical), BPH with obstruction/lower urinary tract symptoms (ZAH18-BY N40.1, Working, Medical), Feeling of incomplete bladder emptying (JGZ62-DE R39.14, Working, Medical), BPH w/ LUTS - N40.1. Post-Op Dx: Same. Anesthesia Type: Local. Procedure: Cystoscopy with removal of foreign body (UROLIFT clip). Complications: None. Risks/Benefits/Informed Consent: Surgical risks, benefits, details of the procedure have been explained to the patient, Full informed consent has been obtained. Intraoperative Information Prepped: Patient is brought back to the endoscopy suite, Patient is placed in supine position, Patient prepped in the usual fashion with Betadine solution, 2% Xylocaine Jelly is placed per Urethra, After waiting several minutes the Cystoscope is introduced. The Urethra is: Normal. The Prostatic Urethra is: Obstructed, Moderate Hypertrophy, Positive median bar, beginning of median lobe. . The Bladder is: Normal, Trabeculated, No tumor. No stone. Positive foreign body consisting of a UroLift clip., Utilizing an alligator forceps, with difficulty secondary to small median lobe, the UroLift clip was removed and discarded.. The ureteral orifices: Show efflux of clear urine. Devices Implanted: None. Removal: Cystoscope is removed, The patient tolerated it well. Postoperative Information Discharge: Patient is discharged home with antibiotic coverage, Follow up arranged, Options discussed. He wants to proceed with prostate resection under anesthesia given the positive pressure flow study and urodynamics. He may bleed a bit secondary to removal of the foreign body.. Normal [facility] Comment on above: Result Comment: Elec tronically Signed By: Kyle HARRY MD\.br\Date and Time Signed: 08/19/23 14:28 EDT Outpatient Surgery Discharge Instructionon 08-19-2023 Outpatient Surgery Discharge Instruction [id number] Normal [facility] Outpatient Surgery Discharge Instruction [place] [id number] Patient Discharge Instructions PERSON INFORMATION Name: GIGI BOONE Date of : 1970 Current Date: 08/19/2023 14:31:55 PHYSICIANS Admitting Physician: Kyle HARRY MD Comment: Discharge Diagnosis: Other obstructive and reflux uropathy GIGI BOONE has been given the following list of follow-up instructions, prescriptions, and patient education materials: IF UNABLE TO CONTACT YOUR PHYSICIAN AND YOU FEEL IT IS AN EMERGENCY, GO TO THE NEAREST EMERGENCY ROOM OR CALL 911 Follow up: With: Address: When: Kyle HARRY [address] [place] [address], [address], [address] [address] Business (1) Comments: Please continue to take the Flomax at 0.4 mg daily. As you witnessed, I did remove the bladder foreign body which seems to be a UroLift clip. We will proceed with prostate resection as soon as my schedule allows. Have a great day. Comment: PATIENT EDUCATION INFORMATION Instructions: Cystoscopy ? Voiding after the procedure: there may be some pain, burning, urgency, frequency and blood tinged urine following the procedure. These symptoms usually resolve within 2-5 days. Drink the amount of fluid it takes to keep the urine pink to yellow or clear in color. Drinking enough water and fluids will help to ease any discomfort after your procedure. ? If you are having problems that seem out of the ordinary, please call. ? If unable to contact your physician and you feel it is an emergency, go to the nearest emergency room or call 911 ? Diet ? you may resume your normal diet. ? Activity ? you may resume your normal activities ? Call if you have a fever over 100 degrees. [place] GIGI BOONE, have received the attached patient education materials/instructions and have verbalized understanding: May we do a follow up call? Yes No I was present when discharge instructions were given Patient Signature _ Date Clinican/Nurse Signature Date You may receive a survey from [employer] asking you to rate your care experience. Your feedback is important and will help us understand what we do well and how we can improve the quality of care we provide to you, your loved ones and our community. It?s an honor to serve you. Thank you for choosing [facility] Normal [facility] Progress Note-Physicianon Progress Note-Physician Patient: GIGI BOONE Age: 53 years Sex: Male : 1970 Associated Diagnoses: None Author: ROEL CAMPOS, Kyle Dixon ROS & PFSH Reviewed I have reviewed the ROS and PFSH from the procedural information filed today with no changes (or with the following changes).. Health Status Allergies: Allergic Reactions (Selected) No Known Allergies, Allergies (1) Active Severity Reaction No Known Allergies None Documented Current medications: Home Medications (7) Active amLODIPine 10 mg Tab 10 mg = 1 tab(s) Cipro 500 mg Tab 500 mg = 1 tab(s), Oral, Daily lisinopril 40 mg Tab 40 mg = 1 tab(s) metformin 500 mg Tab 500 mg = 1 tab(s) pioglitazone 30 mg Tab 30 mg = 1 tab(s) sildenafil 100 mg, As Directed tamsulosin 0.4 mg Cap 0.4 mg = 1 cap(s) Problem list: Active Problems (14) BPH with obstruction/lower urinary tract symptoms Diabetes Diverticula of colon Eczema ED (erectile dysfunction) GERD (gastroesophageal reflux disease) Hemorrhoid Hypertension IBS (irritable bowel syndrome) Lower back pain Nocturia Renal cyst Screening PSA (prostate specific antigen) Venous thrombosis of leg History of Present Illness Continues with bladder outlet obstructive symptomatology. Again discussed that he had a high IPSS score despite previous the UroLift procedure back in March 2023. This combined with the findings on cystoscopy and urodynamics as discussed below in HPI. He said no fever or chills. Objective Additional Findings: Additional Findings: Unexpected findings encountered during today's procedure outside of the original HPI. HEENT is normal Heart regular rate and rhythm Normal external male genitalia No lower extremity edema Awake alert oriented and cooperative Impression and Plan Assessment and Plan: Diagnosis: Foreign body in bladder, initial encounter (ALL64-DI T19.1XXA, Working, Medical), BPH with obstruction/lower urinary tract symptoms (TOC20-JU N40.1, Working, Medical), Other obstructive and reflux uropathy (BRS51-TF N13.8, Discharge, Medical), Feeling of incomplete bladder emptying (FQK21-XN R39.14, Working, Medical). Additional Plan of Care and/or Course of Treatment: Additional Plan of Care and/or Course of Treatment: Options discussed. The patient witnessed the cystoscopic evaluation today. We went over the results of his complex multichannel urodynamics demonstrating a significant positive pressure flow study with a maximum bladder pressure of 183 cm of water with a 148 cc PVR. This, combined with the findings on cystoscopy demonstrating continued presence of obstruction especially with a high riding bladder neck and the beginning of a median lobe leads to the recommendation for prostate resection under anesthesia. He was quite happy that he had his bladder foreign body removed today as well. This was an old UroLift clip. He wants to proceed with TURP. Will schedule TURP. The procedural risks, benefits, details, and treatment alternatives have been discussed with the patient. These include bleeding, infection, need for blood transfusion, continued urinary difficulties, urinary leakage which could be permanent, need for catheter, retrograde ejaculation, scar tissue formation in the urinary channel or area of prostate shaving, erection problems, blood clot formation in the lower extremities which could travel to the lungs, among others. A secondary operation could also be required. Full informed consent has been obtained. Will order General anesthesia. Risk of heart and lung problems discussed. . [facility] Comment on above: Result Comment: Elec tronically Signed By: Kyle HARRY MD\.br\Date and Time Signed: 08/19/23 14:31 EDT Pre-Certification Formon Pre-Certification Form [id number]#[id number] [facility] Insurance Correspondenceon 0 08-06-2023 Insurance Correspondence [id number]#[id number] [facility] Screenson 06-19-2023 Screens [id number]#1.00TIFF [facility] Ambulatory Visit Summaryon 0 06-18-2023 Ambulatory Visit Summary GIGI BOONE :1970 Visit Date:06/18/2023 Ambulatory Visit Instructions Your Diagnosis BPH with obstruction/lower urinary tract symptoms ED (erectile dysfunction) Screening PSA (prostate specific antigen) Diabetes Your Care Team Attending Physician - Kyle HARRY MD Primary Care Physician - Abdulkadir Lockett MD This Is Your Medications List ciprofloxacin (Cipro 500 mg Tab) tamsulosin (tamsulosin 0.4 mg Cap) Contact prescribing physician if questions or concerns amlodipine (amLODIPine 10 mg Tab) lisinopril (lisinopril 40 mg Tab) metformin (metformin 500 mg Tab) pioglitazone (pioglitazone 30 mg Tab) sildenafil [Image Removed: STOP]Stop taking these medications hyoscyamine/methena/mblue/ phenylsal/sodbiphos (Uribel oral capsule) Procedures Performed Cystoscopy (03/25/2023), Transurethral insertion of prostatic urethral lift implant (03/25/2023), Cystoscopy (02/11/2023), TRUS - Transrectal ultrasonography (02/11/2023), Colonoscopy (09/26/2016). Discharge Vitals Temperature (Temporal Artery) 37 ?C Heart Rate (Peripheral) 84 Respiratory Rate 16 Blood Pressure 134/90 Height 170 cm Height 67 in Weight 91 kg Weight 200.2 lb BMI 31.49 What to do next You Need to Schedule the Following Appointments Follow Up with ROEL CAMPOS, ADALID Saleh When: Comments: sched cysto Where: [address] [address]- Medications What How Much When Instructions New ciprofloxacin (Cipro 500 mg Tab) 1 Tablets By Mouth Every day take one tab day before procedure and one tab after procedure Pickup at [id number] Unchanged tamsulosin (tamsulosin 0.4 mg Cap) 1 Capsules Unchanged amlodipine (amLODIPine 10 mg Tab) 1 Tablets Contact prescribing physician if questions or concerns Unchanged lisinopril (lisinopril 40 mg Tab) 1 Tablets Contact prescribing physician if questions or concerns Unchanged metformin (metformin 500 mg Tab) 1 Tablets Contact prescribing physician if questions or concerns Unchanged pioglitazone (pioglitazone 30 mg Tab) 1 Tablets Contact prescribing physician if questions or concerns Unchanged sildenafil 100 Milligram As Directed Contact prescribing physician if questions or concerns Pharmacy Information [id number]: [address], [place] [id number] [phone] What How Much When Comments Stop Taking hyoscyamine/ methena/ mblue/ phenylsal/ sodbiphos (Uribel oral capsule) 1 Capsules By Mouth 2 times a day Allergies No Known Allergies Problems Ongoing - Any problem that you are currently receiving treatment for. BPH with obstruction/lower urinary tract symptoms Diabetes Diverticula of colon Eczema ED (erectile dysfunction) GERD (gastroesophageal reflux disease) Hemorrhoid Hypertension IBS (irritable bowel syndrome) Lower back pain Nocturia Renal cyst Screening PSA (prostate specific antigen) Venous thrombosis of leg Patient Survey You may receive a survey via text or e-mail asking about your office visit. Please share your experience with us by completing your survey. We appreciate your feedback and thank you for choosing us for your care. Education Materials Cystoscopy Cystoscopy is a procedure that is used to help diagnose and sometimes treat conditions that affect the lower urinary tract. The lower urinary tract includes the bladder and the urethra. The urethra is the tube that drains urine from the bladder. Cystoscopy is done using a thin, tube-shaped instrument with a light and camera at the end (cystoscope). The cystoscope may be hard or flexible, depending on the goal of the procedure. The cystoscope is inserted through the urethra, into the bladder. Cystoscopy may be recommended if you have: ? Urinary tract infections that keep coming back. ? Blood in the urine (hematuria). ? An inability to control when you urinate (urinary incontinence) or an overactive bladder. ? Unusual cells found in a urine sample. ? A blockage in the urethra, such as a urinary stone. ? Painful urination. ? An abnormality in the bladder found during an intravenous pyelogram (IVP) or CT scan. Cystoscopy may also be done to remove a sample of tissue to be examined under a microscope (biopsy). Tell a health care provider about: ? Any allergies you have. ? All medicines you are taking, including vitamins, herbs, eye drops, creams, and ypiw-ipn-hwnjpjx medicines. ? Any problems you or family members have had with anesthetic medicines. ? Any blood disorders you have. ? Any surgeries you have had. ? Any medical conditions you have. ? Whether you are or may be . What are the risks? Generally, this is a safe procedure. However, problems may occur, including: ? Infection. ? Bleeding. ? Allergic reactions to medicines. ? Damage to other structures or organs. What happens before the proc (more content not included)... Normal [facility] Urology Office/Clinic Noteon 06-18-2023 Urology Office/Clinic Note Chief Complaint Pt is here for 6 week follow up [facility] Staff 52 year old male here for 6 week F/U. Previous DX: BPH w/LUTS. S/P Cysto/TRUS done 02/11/23 and UroLift done 03/25/23. Pt. taking Flomax and to start short term Prednisone. Dysuria: denies Incomplete bladder emptying: denies Hematuria: denies Frequency: yes Urgency: mild Nocturia: 4x a night Stream: steady stream but weak, sometimes straining Leaking: denies Post void dripping: yes Wearing pads/ Depends: denies Urge incontinence: denies Stress incontinence: denies Incontinence without Sensory Awareness: denies Abdominal pain: denies Flank pain: denies Sexual complaints: _ History of Present Illness Tests reviewed: reviewed UA I have reviewed the previous health record information and history for this patient from [facility]. I have reviewed and verified the staff HPI to be accurate for this encounter. Review of Systems PHQ Score Initial Depression Screen Score: 0 SCORE ROS - Provider Constitutional: denies weight loss, denies hot flashes. Eyes: denies eye problems. Gastrointestinal: denies nausea, denies vomiting. Cardiovascular: denies chest pain or angina. Integumentary: no dryness Musculoskeletal: denies musculoskeletal symptoms. ENMT: denies otolaryngeal symptoms. Respiratory: no shortness of breath. Heme/Lymph: denies easy bleeding tendency, denies easy bruising tendency. Psychiatric: no confusion, no anxiety. Genitourinary: See HPI. Physical Exam Vitals & Measurements T: 37 ?C(Temporal Artery) HR: 84(Peripheral) RR: 16 BP: 134/90 HT: 67 in HT: 170 cm WT: 91 kg WT: 200.2 lb BMI: 31.49 General Appearance: alert, no distress, well nourished, well developed male. Genitourinary: normal scrotum, normal testes, normal urethra, normal epididymis, normal vas deferens/spermatic cord. Flank Pain: none. Bladder: nonpalpable. Assessment/Plan 1. BPH with obstruction/lower urinary tract symptoms (N40.1: Benign prostatic hyperplasia with lower urinary tract symptoms) S/p Cysto/TRUS 02/11/23 - Moderate hypertrophy, 3.5 cm long, mainly lateral lobe hypertrophy and high riding bladder neck, kissing prostate . S/p Urolift 03/25/23 - 4 implants. IPSS 29-30 (26). Prior to Urolift, pt tried Tamsulosin 0.4 mg, no sx improvement. Was then switched to Dutasteride, no sx improvement. PVR (cc): 05/01/23 - 107 (116mL) 06/18/23 - 190 Currently taking Uribel. Started on short term prednisone at last encounter. Pt not emptying very well. Has some dribbling. Despite recent Urolift procedure, pt continues to experience bothersome urinary sxs. Advised pt this will require cystoscopic evaluation to determine possible etiologies. Discussed restarting Flomax to help control sxs for now. -Can stop Uribel as it is not improving sxs -Restart Tamsulosin, pt has refills on hand -Will schedule cystoscopy. The risks and benefits for cystoscopy have been discussed. The risks include bleeding, infection, and irritation of the bladder and urinary channel, among others. The patient, after being informed of procedural details and after questions have been answered, wishes to proceed. Full informed consent has been obtained. Will order Local anesthesia. 2. ED (erectile dysfunction) (N52.9: Male erectile dysfunction, unspecified) Sildenafil 100mg PRN from PCP [1] 3. Screening PSA (prostate specific antigen) (Z12.5: Encounter for screening for malignant neoplasm of prostate) PSA 02/10/22 - 1.53 10/13/22 - 1.20 & 24.2% [2] 4. Diabetes (E11.9: Type 2 diabetes mellitus without complications) A1C 7.4 10/2022. UA today shows >= 1000 mg/dL glucose. Discussed contribution of glucosuria to frequency. Unfortunately the patient is still having significant urinary issues, scoring about a 29 and his IPSS score sheet. Interestingly he initially had a good response to the UroLift procedure but it suddenly began to deteriorate in terms of symptom relief. We had an extensive discussion today with him and his concerning the next step. I feel he needs to go back on tamsulosin 0.4 mg daily. Uribel is not helping much anyway so we can discontinue that. He agrees with the proceeding with a urodynamics to determine functional aspects of urination and to determine the pressure flow relationship as well as cystoscopic evaluation to reevaluate the bladder outlet about 3 months status post UroLift. The possibility exists that he still has a median bar which is obstructing and he may need more aggressive intervention such as prostate resection. Portions of this record may have been created with voice recognition artificial intelligence software, specifically [employer], [employer] and or [employer]. Substitutions may have occurred due to the inherent limitations of voice recognition and artificial intelligence software. Follow-up With When Contact Information Kyle HARRY MD, URL [address] [address]- ( (more content not included)... [facility] Comment on above: Result Comment: Elec tronically Signed By: Kyle HARRY MD\.br\Date and Time Signed: 06/18/23 15:06 EDT IntraOperative Documentson 0 05-16-2023 IntraOperative Documents [id number] [facility] Urology Office/Clinic Noteon 05-06-2023 Urology Office/Clinic Note Chief Complaint f/u to urolift done 03/25/23 HPI Staff Gigi is a 52 y.o. male here for 6wk follow up to UroLift. Previous Dx: BPH w/ obstruction/lower urinary tract symptoms, ED, nocturia, renal cyst. S/P TRUS/cysto done on 02/11/23, UroLift done on 03/25/23. Urinary catheter removed on 03/29/23. PVR today is 107ml. Pt states that he feels like during the first couple of weeks after the Urolift he was voiding better and emptying better but in the past week or so he feels it has gotten worse. Dysuria: no Incomplete bladder emptying: about more than half of the time Hematuria: no Frequency: almost always Urgency: less than half of the time Nocturia: 4-5x Stream: weak almost always, intermittency and straining about half of the time, Leaking: no Post void dripping: yes Wearing pads/ Depends: no Urge incontinence: no Stress incontinence: no Incontinence without Sensory Awareness: no Abdominal pain: no Flank pain: no Sexual complaints: no Review of Systems PHQ Score Initial Depression Screen Score: 0 SCORE no fever, chills, malaise, myalgia. no rash/lesions. no chest pain, palpitations, or SOB. no abdominal pain, nausea, vomiting. no unilateral calf swelling, redness, pain Physical Exam Vitals & Measurements HR: 84(Peripheral) RR: 16 BP: 128/82 HT: 67 in HT: 170 cm WT: 91 kg WT: 200.2 lb BMI: 31.49 General: nontoxic, NAD Mouth: moist mucosa Lungs: normal respiratory effort Cardio: regular rate, good distal perfusion Abdomen: nondistended, no suprapubic distention or tenderness, no CVA tenderness Neurologic: Grossly normal Skin: No rashes or suspicious lesions Assessment/Plan 1. BPH with obstruction/lower urinary tract symptoms (N40.1: Benign prostatic hyperplasia with lower urinary tract symptoms) 02/11/2023 Cysto/TRUS (no bx) 03/25/2023 Urolift IPSS 26 (32), PVR 107 (116mL) UA today is negative for blood and infection. Pt reports minimal lasting improvement since UroLift. He reports at the beginning he was doing noticeably better, but then symptoms returned about 2 weeks after procedure. Pt reports continued weak stream, leakage and taking a long time to fully empty. Explained to patient that UroLift was only 6 weeks ago and that it can take up to 3 months post-op to feel full effect of procedure. Also could be experiencing some post-op inflammation. Lastly, per [facility] op report, the median lobe was particularly challenging. -Continue Flomax -Start short term Prednisone burst F/U 6 weeks -Pt to call office a week after the steroids complete with a verbal update. If no improvement, will discuss case w [facility] to see if he'd like to try anything else. Follow-up With When Contact Information KELTON OSBORN, LORE Ybarra, URL In 6 weeks [address] [place] [address] Additional Instructions: Patient Education Benign Prostatic Hyperplasia Irenate, personally scribed for amisha zapata on 05/01/2023 12:57:58. . Documentation recorded by the scribtate Augusteaccurately reflects the services(s) I performed and decisions made by me. Authenticated by Lore Zapata PA-C on 05/06/2023 16:35:26. Problem List/Past Medical History Ongoing BPH with obstruction/lower urinary tract symptoms Diabetes Diverticula of colon Eczema ED (erectile dysfunction) GERD (gastroesophageal reflux disease) Hemorrhoid Hypertension IBS (irritable bowel syndrome) Lower back pain Nocturia Renal cyst Venous thrombosis of leg Historical No qualifying data Procedure/Surgical History Cystoscopy (03/25/2023), Transurethral insertion of prostatic urethral lift implant (03/25/2023), Cystoscopy (02/11/2023), TRUS - Transrectal ultrasonography (02/11/2023), Colonoscopy (09/26/2016). Medications amLODIPine 10 mg Tab, 10 mg= 1 tab(s) lisinopril 40 mg Tab, 40 mg= 1 tab(s) metformin 500 mg Tab, 500 mg= 1 tab(s) pioglitazone 30 mg Tab, 30 mg= 1 tab(s) sildenafil, 100 mg, As Directed tamsulosin 0.4 mg Cap, 0.4 mg= 1 cap(s) Allergies No Known Allergies Social History Alcohol - Denies Alcohol Use, 01/15/2023 Tobacco Former smoker, quit more than 30 days ago Tobacco Use:., 01/15/2023 Family History Congenital heart disease: Mother. Diabetes mellitus: Father. Immunizations Vaccine Date Status SARS-CoV-2 (COVID-19) mRNA-1273 vaccine 03/18/2021 Recorded influenza, unspecified formulation 02/24/2021 Recorded influenza virus vaccine, inactivated 01/27/2021 Recorded SARS-CoV-2 (COVID-19) mRNA-1273 vaccine 07/27/2020 Recorded SARS-CoV-2 (COVID-19) mRNA-1273 vaccine 06/29/2020 Recorded influenza virus vaccine, inactivated 12/17/2019 Recorded pneumococcal 23-valent vaccine 12/28/2016 Recorded influenza virus vaccine, inactivated 02/06/2015 Recorded influenza virus vaccine, inactivated 04/29/2013 Recorded Lab Results Ambulatory Point of Care Results Bilirubin Urine Dipstick: Negati (more content not included)... Normal [facility] Comment on above: Result Comment: Elec tronically Signed By: LORE ZAPTAA PA-C\.br\Date and Time Signed: 05/06/23 16:35 EST\.br\Electronically Co-Signed By: Renate Vergara\.br\Date and Time Co-Signed: 05/01/23 13:00 EST [place] 05-03-2023 Screens [id number] Normal [facility] Ambulatory Visit Summaryon 0 05-01-2023 Ambulatory Visit Summary GIGI BOONE :1970 Visit Date:05/01/2023 Ambulatory Visit Instructions Your Diagnosis BPH with obstruction/lower urinary tract symptoms ED (erectile dysfunction) Nocturia Your Care Team Attending Physician - LORE ZAPATA PA-C Primary Care Physician - Abdulkadir Lockett MD This Is Your Medications List amlodipine (amLODIPine 10 mg Tab) dutasteride (dutasteride 0.5 mg Cap) lisinopril (lisinopril 40 mg Tab) metformin (metformin 500 mg Tab) pioglitazone (pioglitazone 30 mg Tab) sildenafil tamsulosin (tamsulosin 0.4 mg Cap) Procedures Performed Cystoscopy (03/25/2023), Transurethral insertion of prostatic urethral lift implant (03/25/2023), Cystoscopy (02/11/2023), TRUS - Transrectal ultrasonography (02/11/2023), Colonoscopy (09/26/2016). Discharge Vitals Heart Rate (Peripheral) 84 Respiratory Rate 16 Blood Pressure 128/82 Height 170 cm Height 67 in Weight 91 kg Weight 200.2 lb BMI 31.49 What to do next Scheduled Follow-Up Appointments Saturday. 2023 2:30 PM EDT With: Kyle HARRY MD Where: [facility] Patient Educationon 05-01-19 Patient Education Urology Benign Prostatic Hyperplasia Benign prostatic hyperplasia (BPH) is an enlarged prostate gland that is caused by the normal aging process. The prostate may get bigger as a man gets older. The condition is not caused by cancer. The prostate is a walnut-sized gland that is involved in the production of semen. It is located in front of the rectum and below the bladder. The bladder stores urine. The urethra carries stored urine out of the body. An enlarged prostate can press on the urethra. This can make it harder to pass urine. The buildup of urine in the bladder can cause infection. Back pressure and infection may progress to bladder damage and kidney (renal) failure. What are the causes? This condition is part of the normal aging process. However, not all men develop problems from this condition. If the prostate enlarges away from the urethra, urine flow will not be blocked. If it enlarges toward the urethra and compresses it, there will be problems passing urine. What increases the risk? This condition is more likely to develop in men older than 50 years. What are the signs or symptoms? Symptoms of this condition include: ? Getting up often during the night to urinate. ? Needing to urinate frequently during the day. ? Difficulty starting urine flow. ? Decrease in size and strength of your urine stream. ? Leaking (dribbling) after urinating. ? Inability to pass urine. This needs immediate treatment. ? Inability to completely empty your bladder. ? Pain when you pass urine. This is more common if there is also an infection. ? Urinary tract infection (UTI). How is this diagnosed? This condition is diagnosed based on your medical history, a physical exam, and your symptoms. Tests will also be done, such as: ? A post-void bladder scan. This measures any amount of urine that may remain in your bladder after you finish urinating. ? A digital rectal exam. In a rectal exam, your health care provider checks your prostate by putting a lubricated, gloved finger into your rectum to feel the back of your prostate gland. This exam detects the size of your gland and any abnormal lumps or growths. ? An exam of your urine (urinalysis). ? A prostate specific antigen (PSA) screening. This is a blood test used to screen for prostate cancer. ? An ultrasound. This test uses sound waves to electronically produce a picture of your prostate gland. Your health care provider may refer you to a specialist in kidney and prostate diseases (urologist). How is this treated? Once symptoms begin, your health care provider will monitor your condition (active surveillance or watchful waiting). Treatment for this condition will depend on the severity of your condition. Treatment may include: ? Observation and yearly exams. This may be the only treatment needed if your condition and symptoms are mild. ? Medicines to relieve your symptoms, including: ? Medicines to shrink the prostate. ? Medicines to relax the muscle of the prostate. ? Surgery in severe cases. Surgery may include: ? Prostatectomy. In this procedure, the prostate tissue is removed completely through an open incision or with a laparoscope or robotics. ? Transurethral resection of the prostate (TURP). In this procedure, a tool is inserted through the opening at the tip of the penis (urethra). It is used to cut away tissue of the inner core of the prostate. The pieces are removed through the same opening of the penis. This removes the blockage. ? Transurethral incision (TUIP). In this procedure, small cuts are made in the prostate. This lessens the prostate's pressure on the urethra. ? Transurethral microwave thermotherapy (TUMT). This procedure uses microwaves to create heat. The heat destroys and removes a small amount of prostate tissue. ? Transurethral needle ablation (TUNA). This procedure uses radio frequencies to destroy and remove a small amount of prostate tissue. ? Interstitial laser coagulation (ILC). This procedure uses a laser to destroy and remove a small amount of prostate tissue. ? Transurethral electrovaporization (TUVP). This procedure uses electrodes to destroy and remove a small amount of prostate tissue. ? Prostatic urethral lift. This procedure inserts an implant to push the lobes of the prostate away from the urethra. Follow these instructions at home: ? Take bzut-qqg-[id number] and prescription medicines only as told by your health care provider. ? Monitor your symptoms for any changes. Contact your health care provider with any changes. ? Avoid drinking large amounts of liquid before going to bed or out in public. ? Avoid or reduce how much caffeine or alcohol you drink. ? Give yourself time when you urinate. ? Keep all follow-up visits. This is important. Contact a health care provider if: ? You have unexplained back pain. ? Your symptoms do not get better with treatment. ? You develop side effects from the medicine (more content not included)... Normal [facility] Consent for Procedure/Surger yon 03-25-2023 Consent for Procedure/Surgery [id number] [facility] Consent for Treatmenton 03-08 Consent for Treatment [id number] [facility] Inpatient Patient Summaryon 03-25-2023 Inpatient Patient Summary [place] [address] Clinical Summary Person Information Name: GIGI BOONE Age: 52 Years : 1970 Sex: Male PCP: Abdulkadir Lockett MD Marital Status: Race: White Ethnicity: Non- or Language: Emirati Visit Id: Visit Reason: BPH WITH LUTS Speciality: Acuity: Enc Type: Outpatient Med Service: Surgery Arrival: 03/25/2023 12:33:46 Discharge: Dispo Type: Address: [address] [place] [id number] Provider Notes: Diagnosis: Problems Active Nocturia BPH with obstruction/lower urinary tract symptoms ED (erectile dysfunction) Venous thrombosis of leg Diabetes Renal cyst Diverticula of colon Hemorrhoid IBS (irritable bowel syndrome) Eczema GERD (gastroesophageal reflux disease) Hypertension Lower back pain Smoking Status: Functional Status: Sensory Deficits: History of Falls: Mobility Assistance Prior to Admission: ADLs: Current Level of Assistance for Self-Care/Mobility: Cognitive Status: Allergies No Known Allergies Laboratory or Other Results This Visit (last charted value for your 03/25/2023 visit) No Laboratory or Other Results This Visit Measurements: Height: 170 cm Weight: Blood Pressure: Not Valued / Not Valued BMI: Procedures No Procedures Documented Immunizations No Immunizations Documented This Visit Final Med List: acetaminophen-hydrocodone (Cross[place] 325 mg-5 mg oral tablet) Take 1 hour prior to your procedure. Refills: 0. acetaminophen-tramadol (Ultracet 325 mg-37.5 mg Tab) take 1-2 every 6 hrs prn for pain - following procedure. Refills: 0. amlodipine (amLODIPine 10 mg Tab) 1 Tablets. cephalexin (Keflex 500 mg Cap) 1 cap po day prior to procedure, 1 cap po day of procedure following procedure. Refills: 0. ciprofloxacin (ciprofloxacin 500 mg Tab) Start 3 days prior to procedure - twice a day for 7 days. Refills: 0. diazepam (Valium 10 mg Tab) Take 1 hr prior to procedure. Refills: 0. dutasteride (dutasteride 0.5 mg Cap) 1 Capsules. lisinopril (lisinopril 40 mg Tab) 1 Tablets. metformin (metformin 500 mg Tab) 1 Tablets. oxybutynin (oxybutynin 5 mg Tab) 1 tab(s) Oral bid after procedure. Refills: 0. pioglitazone (pioglitazone 30 mg Tab) 1 Tablets. sildenafil 100 Milligram As Directed. tamsulosin (tamsulosin 0.4 mg Cap) 1 Capsules. Care Team Members: Attending Physician: Kyle HARRY MD Consulting Physician: Referring Physician: Kyle HARRY MD Follow up: With: Address: When: Kyle HARRY [address], [address], [facility] [address] [place] [id number] Business (1) Comments: Please call my office to make arrangements to have the catheter removed in the office by one of our medical assistants later this week. Patient Education Information: Lue - Urolift Post-Op Instructions (Custom) [facility] IntraOperative Documentson 1 05-26-2022 IntraOperative Documents [id number] [facility] Main OR Intraoperative Recor don 03-25-2023 Main OR Intraoperative Record IntraOp Document Type FTURO Summary Primary Physician: Kyle HARRY MD Finalized Date/Time: 03/25/23 14:06:13 Pt. Name: GIGI BOONE Tate /Sex: 1970 Male Med Rec #: [id number] Physician: Kyle HARRY MD Financial #: [id number] Pt. 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 Surgeon Description cysto with urolift Primary Procedure Yes Primary Surgeon Kyle HARRY MD Start 03/25/23 13:34:00 Stop 03/25/23 13:54:00 Anesthesia Type Local Surgical Service Urology Wound Class 2 - Clean-Contaminated Last Modified By: Ailin PRIETO, SAMANTHAOR, Sheba 03/25/23 13:57:23 General Case Data FTURO Pre-Care Text: Classifies surgical wound, implements aseptic technique, initiates traffic control Entry 1 Case Information OR URO 1 FT Case Level None Wound Class 2 - Clean-Contaminated Specialty Urology Preop Diagnosis BPH WITH LUTS Postop Same As Preop Yes Postop Diagnosis BPH WITH LUTS Outcomes Met? Yes Last Modified By: Ailin PRIETO, SAMANTHAOR, Sheba 03/25/23 13:41:33 Post-Care Text: The patient is free from signs and symptoms of infection EU IntraOp - FTURO Pre-Care Text: Implements protective measures prior to operative or invasive procedure, confirms identity before the operative or invasive procedure, verifies operative procedure, surgical site, and laterality Entry 1 EU Perioperative Protocols Procedure(s) CYSTOSCOPY LOCAL Patient Identity Birthday, ID Band UROLIFT(.) Verified (select at Check, Patient least 2): Participation Consents / H and P HandP, Surgery/Procedure Operative Site N/A Verified Consent Marking Verified Surgical Site Yes Laterality Verified n/a Verified Procedure Verified Yes Correct Patient Yes Position Verified Availability Equipment, Implant, Time Out Ailin PRIETO, SAMANTHAOR, Verified (If Medication Participants ROEL Scruggs MD, Applicable) Johnna Saleh CST, Tiera Kaminski Time Out Complete 03/25/23 13:33:00 Allergies Reviewed? Yes Allergies Reviewed Self/Patient With Body Position Low Lithotomy Prep Area penis Prep Agents Betadine Solution Skin. Condition Unable to Visualize Additional None Specimens Collected Vitals - EU Blood Pressure 118/80 Pulse 89 bpm Respirations SPO2 EBL 0 IandO - EU Total Intake 0 mL Total Output 0 mL Outcomes Met? 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 Yes Last Modified By: TONI Parisi RN, Ruthann 03/25/23 13:51:06 Post-Care Text: The patient is free from signs and symptoms of injury caused by extraneous objects Sign Out FTURO Entry 1 Before Patient Leaves OR Nurse verbally Yes Nurse verbally n/a confirms with the confirms with the team the name of team that the procedure(s) instrument, sponge, recorded and needle counts are correct (or N/A) Nurse verbally n/a Nurse verbally n/a confirms with the confirms with the team how the team whether there specimen is labeled are any equipment (including patient problems to be name), if applicable addressed Sign Out Complete 03/25/23 13:59:00 Last Modified By: TONI Parisi RN, Ruthann 03/25/23 13:57:33 Case Comments Finalized By: TONI Parisi RN, Ruthann Document Signatures Signed By: TONI Parisi RN, Ruthann 03/25/23 14:06 Normal [facility] Main OR Preoperative Recordo n 03-25-2023 Main OR Preoperative Record Holding Area Document Type FTURO Summary Primary Physician: Kyle HARRY MD Finalized Date/Time: 03/25/23 13:44:24 Pt. Name: GIGI BOONE/Sex: 1970 Male Med Rec #: [id number] Physician: Kyle HARRY MD Financial #: [id number] Pt. Type: O Room/Bed: / Admit/Disch: 03/25/23 12:33:46 - Institution: Case Times Holding FTURO Pre-Care Text: Verifies consent for planned procedure, identifies individual values and wishes concerning care, includes family members in perioperative teaching Secures patient's records' belongings, and valuables, maintains patient's dignity and privacy, and maintains patient confidentiality Entry 1 In Holding 03/25/23 12:54:00 Outcomes Met? Yes Last Modified By: Tiera Espinoza RN 03/25/23 12:54:44 Post-Care Text: The patient participates in decisions affecting his or her perioperative plan of care The patient's right to privacy is maintained Surgery Checklist FTURO Entry 1 Patient Birthday, ID Band Procedure History and Physical, Identification: Check, Patient Verification: Surgical Consent, With Participation Patient NPO after Midnight: n/a Personal Items: Glasses, Jewelry Limitations: GLASSES - READING; RING Complaints of Pain: No X 1 Skin Integrity Dry, Warm Vitals - EU Blood Pressure 118/80 Pulse 87 bpm Respirations 16 br/min SPO2 96 % Additional None RN Reviewed Yes Specimens Collected Last Modified By: Tiera Espinoza RN 03/25/23 12:59:32 General Comments: TEMP 36.5C. IDA JAMISON Finalized By: TONI Parisi RN, Ruthann Document Signatures Signed By: Tiera Espinoza RN 03/25/23 13:19 Tiera Espinoza RN 03/25/23 12:59 Tiera Espinoza RN 03/25/23 13:17 TONI Parisi RN, Ruthann 03/25/23 13:44 Normal [facility] Operative Reporton Operative Report Patient: JONNY BOONE Age: 52 years Sex: Male : 1970 Associated Diagnoses: None Author: Kyle HARRY MD Procedure Operative Information Details: Date/ Time: 03/25/2023 13:56:00. Pre-Op Dx: BPH w/ LUTS - N40.1, Urinary retention. Post-Op Dx: Same. Anesthesia Type: Local. Procedure: Cystoscopy with UroLift Prostatic Urethral Lift. Complications: None. Risks/Benefits/Informed Consent: Surgical risks, benefits, details of the procedure have been explained to the patient, Full informed consent has been obtained. Indications: This patient has bladder outlet obstructive symptoms refractory to medications, wishes to no longer take medications, He is strongly desirous to try the Urolift procedure. Intraoperative Information Prepped: Patient received 1 hour prior to procedure (10 mg diazepam, 5/325 mg of Crossville), Local Anesthesia (60cc 2% Xylocaine liquid inserted into bladder, 20cc Xylocaine 2% jelly inserted into urethra, Penile clamp applied for 20 min dwell prior to procedure with patient in sitting position). Procedure: A 20F cystoscope was inserted into the bladder, The cystoscopy bridge was replaced with a UroLift delivery device, The first treatment site was the patient's left side approximately 1.5 cm distal to the bladder neck, The distal tip of the delivery device was then angled laterally approximately 20 degrees at this position to compress the lateral lobe, The trigger was pulled, thereby deploying a needle containing the implant through the prostate, The needle was then retracted, allowing one end of the implant to be delivered to the capsular surface of the prostate, The implant was then tensioned to assure capsular seating and removal of slack monofilament, The device was then angled back toward midline and slowly advanced proximally (typically 3-4mm) until cystoscopic verification of the monofilament being centered in the delivery bay, The urethral end piece was then affixed to the monofilament thereby tailoring the size of the implant, Excess filament was then severed, The delivery device was then readvanced into the bladder, The delivery device was then replaced with cystoscope and bridge and the implant location and opening effect was confirmed cystoscopically, The same procedure was then repeated on the right side, Two additional implants were delivered just proximal to the veru montanum, again one on right and one on left side of the prostate, following the same technique, A final cystoscopy was conducted first to inspect the location and state of each implant, And second, to confirm the presence of a continuous anterior channel was present through the prostatic urethra with irrigation flow turned off, All instruments were removed, The patient was then allowed to sit up, A 16 Fr Ortiz catheter was placed at the end of the procedure, I was unable to get the scope up over the median bar into the bladder throughout the procedure. . Specimens Removed: None. Devices Implanted: 4 Urolift devices. Postoperative Information Discharge: The patient tolerated the procedure well and was subsequently discharged home, Ortiz catheter to be removed in the office later this week. Voiding trial to be given. The patient will subsequently monitor his urinary flow pattern. If this procedure is not successful in alleviating symptoms, the next procedure would most likely involve resection of this large median bar. . Normal [facility] Comment on above: Result Comment: Elec tronically Signed By: Kyle HARRY MD\.br\Date and Time Signed: 03/25/23 13:58 EST Outpatient Surgery Discharge Instructionon 03-25-2023 Outpatient Surgery Discharge Instruction [id number] Normal [facility] Outpatient Surgery Discharge Instruction [address] [address] Patient Discharge Instructions PERSON INFORMATION Name: GIGI BOONE Date of : 1970 Current Date: 03/25/2023 13:55:51 PHYSICIANS Admitting Physician: Kyle HARRY MD Comment: Discharge Diagnosis: GIGI BOONE has been given the following list of follow-up instructions, prescriptions, and patient education materials: IF UNABLE TO CONTACT YOUR PHYSICIAN AND YOU FEEL IT IS AN EMERGENCY, GO TO THE NEAREST EMERGENCY ROOM OR CALL 911 Follow up: With: Address: When: Kyle HARRY [address] [place] [address], [address], [place] [phone] Business (1) Comments: Please call my office to make arrangements to have the catheter removed in the office by one of our medical assistants later this week. Comment: PATIENT EDUCATION INFORMATION Instructions: [facility] [place], [place] Post-Operative Instructions for UroLift After your procedure it is normal to have: Gross Hematuria (blood in the urine) You may even notice blood clots in your urine. A small amount of blood may apppear to be a lot of blood in your urine as it is diluted. Restarting your blood thinner, increased activity and heavy lifting could increase the amount of bleeding. The bleeding may be sporadic (off and on) over the next 2-3 weeks. Ensure you are hydrating to assist in flushing the blood to prevent voiding complications. In the event you are unable to void, please reach out to our office. If the office is closed, you will need to report to the local emergency room. Blood in your semen and stool may be present. The blood in your semen is not harmful to you or your partner. This will resolve with time. Frequency/urgency/burning with urination is very common. This is due to irritation from your procedure. These symptoms do not indicate that your procedure was unsuccessful or that there is an infection. Ensure you are hydrating! You may try AZO over the counter as needed for urinary discomfort. Pain/discomfort are normal as well. There has been a non-narcotic prescription sent to your pharmacy. You may alternate this prescription with over the counter Ibuprofen. Your pain and discomfort should improve within a few days. When do I need to call the office? We ask that you reach out to the office if you experience a temperature of 100.4 ? F or higher, excessive urinary bleeding, symptoms of infection, inability to urinate or uncontrolled pain. If the office is closed, you may need to present to the local emergency department. Ortiz catheter : You have the catheter in and will have some bleeding around the catheter. Push fluids to keep the urine clear. Please call the office to have the catheter removed later this week. Postop UroLift Instructions ? Complete your antibiotic as instructed. ? Remain on all your urinary medication until follow up. ? Take your pain madications and AZO as needed. ? Resume any blood thinners 48 hour post procedure. ? Continue to hydrate! ? Minimize your activity for 72-96 hours post procedure. ? If you are prescribed Oxybutynin for bladder spasms, you may take this medication every 8 hours as needed. This medication may cause dry mouth/eyes and constipation. Taking an over the counter stool softener and drinking plenty of water will help with side effects. Ortiz Catheter Removal Your healthcare provider has instructed you to remove your Ortiz catheter. This is a thin, flexible tube that allows urine to drain out of your bladder and into a bag. It is important to properly remove your catheter to prevent infection and other complications. If you have any questions about removing the Ortiz catheter, ask your healthcare provider before trying to remove it. Otherwise, follow the instructions on this sheet. Ortiz Catheter The Ortiz catheter is held in place by a small balloon that is filled with water. To remove the catheter, you must first drain the water from the balloon. This is done using a syringe and the balloon port. This is the opening in the catheter that is not attached to the bag. It allows you to get to the balloon. Instructions for Removing the Catheter Follow the directions closely. Note: If the catheter does not come out with gentle pulling, stop and call your healthcare provider right away. ? Empty the bag of urine if needed. ? Wash your hands with soap and warm water. Dry them well. ? Gather your supplies. This includes a syringe that was given to you by your healthcare provider, a wastebasket, and a towel. ? Put the syringe into the balloon port on the catheter. The syringe fits tightly into the port with a firm push and twist motion. ? Wait as the water from the balloon empties into the syringe. Depending on how large the balloon is, you may need to r (more content not included)... Normal [facility] Patient Educationon 03-25-20 Patient Education [facility] [place], [place] Post-Operative Instructions for UroLift After your procedure it is normal to have: Gross Hematuria (blood in the urine) You may even notice blood clots in your urine. A small amount of blood may apppear to be a lot of blood in your urine as it is diluted. Restarting your blood thinner, increased activity and heavy lifting could increase the amount of bleeding. The bleeding may be sporadic (off and on) over the next 2-3 weeks. Ensure you are hydrating to assist in flushing the blood to prevent voiding complications. In the event you are unable to void, please reach out to our office. If the office is closed, you will need to report to the local emergency room. Blood in your semen and stool may be present. The blood in your semen is not harmful to you or your partner. This will resolve with time. Frequency/urgency/burning with urination is very common. This is due to irritation from your procedure. These symptoms do not indicate that your procedure was unsuccessful or that there is an infection. Ensure you are hydrating! You may try AZO over the counter as needed for urinary discomfort. Pain/discomfort are normal as well. There has been a non-narcotic prescription sent to your pharmacy. You may alternate this prescription with over the counter Ibuprofen. Your pain and discomfort should improve within a few days. When do I need to call the office? We ask that you reach out to the office if you experience a temperature of 100.4 ? F or higher, excessive urinary bleeding, symptoms of infection, inability to urinate or uncontrolled pain. If the office is closed, you may need to present to the local emergency department. Ortiz catheter : You have the catheter in and will have some bleeding around the catheter. Push fluids to keep the urine clear. Please call the office to have the catheter removed later this week. Postop UroLift Instructions ? Complete your antibiotic as instructed. ? Remain on all your urinary medication until follow up. ? Take your pain madications and AZO as needed. ? Resume any blood thinners 48 hour post procedure. ? Continue to hydrate! ? Minimize your activity for 72-96 hours post procedure. ? If you are prescribed Oxybutynin for bladder spasms, you may take this medication every 8 hours as needed. This medication may cause dry mouth/eyes and constipation. Taking an over the counter stool softener and drinking plenty of water will help with side effects. Ortiz Catheter Removal Your healthcare provider has instructed you to remove your Ortiz catheter. This is a thin, flexible tube that allows urine to drain out of your bladder and into a bag. It is important to properly remove your catheter to prevent infection and other complications. If you have any questions about removing the Ortiz catheter, ask your healthcare provider before trying to remove it. Otherwise, follow the instructions on this sheet. Ortiz Catheter The Ortiz catheter is held in place by a small balloon that is filled with water. To remove the catheter, you must first drain the water from the balloon. This is done using a syringe and the balloon port. This is the opening in the catheter that is not attached to the bag. It allows you to get to the balloon. Instructions for Removing the Catheter Follow the directions closely. Note: If the catheter does not come out with gentle pulling, stop and call your healthcare provider right away. ? Empty the bag of urine if needed. ? Wash your hands with soap and warm water. Dry them well. ? Gather your supplies. This includes a syringe that was given to you by your healthcare provider, a wastebasket, and a towel. ? Put the syringe into the balloon port on the catheter. The syringe fits tightly into the port with a firm push and twist motion. ? Wait as the water from the balloon empties into the syringe. Depending on how large the balloon is, you may need to repeat this process several times until all of the water is out of the balloon. ? Once the balloon is emptied, gently pull out the catheter. ? Put the used catheter in the wastebasket. Throw away the syringe. ? Use the towel to wipe up any spilled water or urine if needed. ? Wash your hands again. When to Call Your Healthcare Provider Call the healthcare provider right away if: ? You have a fever of 100.4 ?F (38?C) or higher, or as directed by your healthcare provider. ? You have questions about removing the catheter. ? The catheter does not come out with gentle pulling. ? You cannot urinate within 8 hours of removing the catheter. ? Your belly (abdomen) is painful or bloated ? You have burning pain with urination that lasts for 24 hours. ? You see a lot of blood in your urine. Light bleeding for 24 hours is normal. ? It feels like the bladder is not emptying. Normal [facility] Pre-Certification Formon Pre-Certification Form [id number]#[id number] [facility] Insurance Correspondenceon 1 05-12-2022 Insurance Correspondence [id number]#1.00TIFF [facility] Coding Queryon 02-19-2023 Coding Query - From: Keisha Hernandez To: Kyle HARRY MD; Cc: Madison Meneses; Sent: 02/19/2023 15:49:50 EST ! Subject: Coding Query (Template) CODING COMMUNICATION: ____ Final diagnosis missing please document on Discharge Summary _X__ Procedure information missing: Please clarify if biopsies were done or not, there is conflicting information. ____ Please clarify type of organism associated with infection ____ Please complete ROS or HPI for ER documentation Please feel free to contact the coding department with any questions. Thank you! From: Kyle HARRY MD To: Keisha Hernandez; Sent: 02/19/2023 17:17:22 EST Subject: RE: Coding Query (Template) Caller Name: GIGI BOONE; Caller Number: Yimi , M My apologies. I utilized a template for the transrectal ultrasound and neglected to take out the mentioning of biopsies and sending tissue to pathology. I did correct this as an addendum in the operative note. This is only a transrectal ultrasound. Thanks [facility] Operative Reporton Operative Report Patient: JONNY BOONE Age: 52 years Sex: Male : 1970 Associated Diagnoses: None Author: Kyle HARRY MD Procedure Operative Information Details: Date/ Time: 02/11/2023 14:45:00. Pre-Op Dx: BPH with LUTS. Post-Op Dx: Same. Anesthesia Type: Local. Procedure: Transrectal ultrasound of the prostate. Complications: None. Risks/Benefits/Informed Consent: Surgical risks, benefits, details of the procedure have been explained to the patient, Full informed consent has been obtained. Intraoperative Information Prepped: The patient was brought to the office suite, placed in the modified left lateral Egan position, The patient was draped appropriately. Procedure: Then 2% Xylocaine jelly was used for intrarectal anesthesia, After waiting several minutes, a well lubricated ultrasound probe was introduced per rectum, The prostate was carefully evaluated in the AP and Sagittal views. Volume: 43.5 CC. Specimens Removed: A total of 12 biopsies were taken, 6 from each side, and sent to pathology. Devices Implanted: None. Postoperative Information Discharge: The patient tolerated the procedure well and was discharged home in satisfactory condition, The patient was instructed to (Finish antibiotics, Avoid strenuous activity). Radiology Report Procedure: Transrectal Ultrasound of the Prostate. Narrative: Ultrasound probe is introduced and performed in the longitudinal and transverse plains, The gland measures (52.7 MM Length, 46.2 MM Width, 34.1 MM Depth, with a calculated volume of 43.5 CC), The peripheral zone demonstrates No abnormalities, Rest of the prostate demonstrates No abnormalities, These were sent to pathology for evaluation. Correction: No biopsies were taken as this was only a transrectal ultrasound. There was no specimen so there was nothing sent to pathology. [facility] Comment on above: Result Comment: Elec tronically Signed By: ROEL CAMPOS, Kyle Villagomez.br\Date and Time Signed: 02/19/23 17:16 EST Consenton 02-12-2023 Consent [id number]#[id number] [facility] Consent for Procedure/Surger yon 02-11-2023 Consent for Procedure/Surgery [id number]#1.00TIFF [facility] Consent for Treatmenton Consent for Treatment [id number]#1.00TIFF [facility] Inpatient Patient Summaryon 02-11-2023 Inpatient Patient Summary [place] [id number] Clinical Summary Person Information Name: GIGI BOONE Age: 52 Years : 1970 Sex: Male PCP: Abdulkadir Lockett MD Marital Status: Race: White Ethnicity: Non- or Language: Emirati Visit Id: Visit Reason: BPH WITH LUTS Speciality: Acuity: Enc Type: Outpatient Med Service: Surgery Arrival: 02/11/2023 13:19:36 Discharge: Dispo Type: Address: [address] [place] [id number] Provider Notes: Diagnosis: Problems Active Nocturia BPH with obstruction/lower urinary tract symptoms ED (erectile dysfunction) Venous thrombosis of leg Diabetes Renal cyst Diverticula of colon Hemorrhoid IBS (irritable bowel syndrome) Eczema GERD (gastroesophageal reflux disease) Hypertension Lower back pain Smoking Status: Functional Status: Sensory Deficits: History of Falls: Mobility Assistance Prior to Admission: ADLs: Current Level of Assistance for Self-Care/Mobility: Cognitive Status: Allergies No Known Allergies Laboratory or Other Results This Visit (last charted value for your 02/11/2023 visit) No Laboratory or Other Results This Visit Measurements: Height: 170 cm Weight: Blood Pressure: Not Valued / Not Valued BMI: Procedures No Procedures Documented Immunizations No Immunizations Documented This Visit Final Med List: amlodipine (amLODIPine 10 mg Tab) 1 Tablets. cephalexin (Keflex 500 mg Cap) 1 cap po day prior to procedure, 1 cap po day of procedure following procedure. Refills: 0. dutasteride (dutasteride 0.5 mg Cap) 1 Capsules. lisinopril (lisinopril 40 mg Tab) 1 Tablets. metformin (metformin 500 mg Tab) 1 Tablets. pioglitazone (pioglitazone 30 mg Tab) 1 Tablets. sildenafil 100 Milligram As Directed. tamsulosin (tamsulosin 0.4 mg Cap) 1 Capsules. Care Team Members: Attending Physician: Kyle HARRY MD Consulting Physician: Referring Physician: Kyle HARRY MD Follow up: With: Address: When: Kyle HARRY [address] [facility], [address], [place] [address] [facility] (1) Comments: As we discussed, you are actually a candidate for any of the procedures which have been discussed with you. Patient Education Information: EU - Cystoscopy Discharge Instructions (Custom) [facility] IntraOperative Documentson 1 04-13-2022 IntraOperative Documents [id number]#[id number] [facility] Main OR Intraoperative Recor don 02-11-2023 Main OR Intraoperative Record IntraOp Document Type FTURO Summary Primary Physician: Kyle HARRY MD Finalized Date/Time: 02/11/23 14:45:15 Pt. Name: GIGI BOONE/Sex: 1970 Male Med Rec #: [id number] Physician: Kyle HARRY MD Financial #: [id number] Pt. Type: O Room/Bed: / Admit/Disch: 02/11/23 13:19:36 - Institution: Case Times FTURO Entry 1 Patient Times In Room 02/11/23 14:20:00 Out Room 02/11/23 14:51:00 Procedure Times Start 02/11/23 14:22:00 Stop 02/11/23 14:46:00 Anesthesia Times Last Modified By: TONI Parisi RN, Sheba 02/11/23 14:44:48 Case Attendance FTURO Entry 1 Entry 2 Entry 3 Case Attendee ROEL CAMPOS, Kyle Parisi RN, TONI, Patrick Broderick Role Performed Surgeon - Primary Christmas Tree Contractor - Primary Scrub - Primary Time In 02/11/23 14:20:00 02/11/23 14:20:00 02/11/23 14:20:00 Time Out 02/11/23 14:51:00 02/11/23 14:51:00 02/11/23 14:51:00 Procedure CYSTOSCOPY LOCAL(.) CYSTOSCOPY LOCAL(.) CYSTOSCOPY LOCAL(.) Comments Last Modified By: Ailin PRIETO, SAMANTHAOR, Ailin PRIETO, TONI, Ailin PRIETO, TONI, Sheba 02/11/23 Sheba 02/11/23 Sheba 02/11/23 14:44:49 14:44:49 14:44:49 Surgical Procedures FTURO Entry 1 Procedure Description Procedure CYSTOSCOPY LOCAL Modifiers . Surgeon Description CYSTO and TRUS Primary Procedure Yes Primary Surgeon Kyle HARRY MD Start 02/11/23 14:22:00 Stop 02/11/23 14:46:00 Anesthesia Type Local Surgical Service Urology Wound Class 2 - Clean-Contaminated Last Modified By: TONI Parisi RN, Ruthann 02/11/23 14:44:50 General Case Data FTURO Pre-Care Text: Classifies surgical wound, implements aseptic technique, initiates traffic control Entry 1 Case Information OR URO 1 FT Case Level None Wound Class 2 - Clean-Contaminated Specialty Urology Preop Diagnosis BPH WITH LUTS Postop Same As Preop Yes Postop Diagnosis BPH WITH LUTS Outcomes Met? Yes Last Modified By: TONI Parisi RN, Sheba 02/11/23 14:09:34 Post-Care Text: The patient is free from signs and symptoms of infection EU IntraOp - FTURO Pre-Care Text: Implements protective measures prior to operative or invasive procedure, confirms identity before the operative or invasive procedure, verifies operative procedure, surgical site, and laterality Entry 1 EU Perioperative Protocols Procedure(s) CYSTOSCOPY LOCAL(.) Patient Identity Birthday, ID Band Verified (select at Check, Patient least 2): Participation Consents / H and P HandP, Surgery/Procedure Operative Site N/A Verified Consent Marking Verified Surgical Site Yes Laterality Verified n/a Verified Procedure Verified Yes Correct Patient Yes Position Verified Availability Equipment, Medication Time Out Kyle HARRY MD, Verified (If Participants TONI Parisi RN, Applicable) Davie Scruggs Kendall R Time Out Complete 02/11/23 14:21:00 Allergies Reviewed? Yes Allergies Reviewed Self/Patient With Body Position Supine Prep Area penis Prep Agents Betadine Solution Skin. Condition Unable to Visualize Additional Tissue Specimens Collected Vitals - EU Blood Pressure Pulse Respirations SPO2 EBL 0 IandO - EU Total Intake 0 mL Total Output 0 mL Outcomes Met? Yes Last Modified By: TONI Parisi RN, Ruthann 02/11/23 14:24:15 Post-Care Text: The patient is free from signs and symptoms of injury caused by extraneous objects General Comments: after cysto patient turned on left side for TRUS Sign Out FTURO Entry 1 Before Patient Leaves OR Nurse verbally Yes Nurse verbally n/a confirms with the confirms with the team the name of team that the procedure(s) instrument, sponge, recorded and needle counts are correct (or N/A) Nurse verbally n/a Nurse verbally n/a confirms with the confirms with the team how the team whether there specimen is labeled are any equipment (including patient problems to be name), if applicable addressed Sign Out Complete 02/11/23 14:48:00 Last Modified By: TONI Parisi RN, Ruthann 02/11/23 14:45:03 Case Comments Finalized By: TONI Parisi RN, Ruthann Document Signatures Signed By: TONI Parisi RN, Ruthann 02/11/23 14:45 TONI Parisi RN, Ruthann 02/11/23 14:45 Normal [facility] Main OR Preoperative Recordo n 02-11-2023 Main OR Preoperative Record Holding Area Document Type FTURO Summary Primary Physician: Kyle HARRY MD Finalized Date/Time: 02/11/23 14:25:46 Pt. Name: GIGI BOONE./Sex: 1970 Male Med Rec #: [id number] Physician: Kyle HARRY MD Financial #: [id number] Pt. Type: O Room/Bed: / Admit/Disch: 02/11/23 13:19:36 - Institution: Case Times Holding FTURO Pre-Care Text: Verifies consent for planned procedure, identifies individual values and wishes concerning care, includes family members in perioperative teaching Secures patient's records' belongings, and valuables, maintains patient's dignity and privacy, and maintains patient confidentiality Entry 1 In Holding 02/11/23 13:57:00 Outcomes Met? Yes Last Modified By: Zainab Pat LPN 02/11/23 13:57:29 Post-Care Text: The patient participates in decisions affecting his or her perioperative plan of care The patient's right to privacy is maintained Surgery Checklist FTURO Entry 1 Patient Birthday, ID Band Procedure History and Physical, Identification: Check, Patient Verification: Surgical Consent, With Participation Patient NPO after Midnight: n/a Date/Time: 02/11/23 13:57:00 Personal Items: Jewelry Personal Items wedding band Comment: Limitations: up ad sin Complaints of Pain: No Skin Integrity Intact, [place], Warm, & Dry Vitals - EU Blood Pressure 146/87 Pulse 75 bpm Respirations 16 br/min SPO2 97 % RN Reviewed Yes Last Modified By: TONI Parisi RN, Ruthann 02/11/23 14:24:47 General Comments: Temp 36.5 Finalized By: TONI Parisi RN, Ruthann Document Signatures Signed By: Zainab Pat LPN 02/11/23 13:59 TONI Parisi RN, Ruthann 02/11/23 14:25 Normal [facility] Operative Reporton Operative Report Patient: JONNY BOONE Age: 52 years Sex: Male : 1970 Associated Diagnoses: None Author: Kyle HARRY MD Procedure Operative Information Details: Date/ Time: 02/11/2023 14:35:00. Pre-Op Dx: BPH w/ LUTS - N40.1. Post-Op Dx: Same. Anesthesia Type: Local. Procedure: Local Cystoscopy. Complications: None. Risks/Benefits/Informed Consent: Surgical risks, benefits, details of the procedure have been explained to the patient, Full informed consent has been obtained. Intraoperative Information Prepped: Patient is brought back to the endoscopy suite, Patient is placed in supine position, Patient prepped in the usual fashion with Betadine solution, 2% Xylocaine Jelly is placed per Urethra, After waiting several minutes the Cystoscope is introduced. The Urethra is: Normal. The Prostatic Urethra is: Obstructed, Moderate Hypertrophy, 3.5 cm long, mainly lateral lobe hypertrophy and high riding bladder neck. kissing prostate present, as well. . The Bladder is: Normal, Trabeculated Mild (1), No tumor, no stones. . The ureteral orifices: Show efflux of clear urine. Devices Implanted: None. Removal: Cystoscope is removed, The patient tolerated it well. Postoperative Information Discharge: Patient is discharged home with antibiotic coverage, Follow up arranged, Thinking about options with either REZUM or UROLIFT procedure. . [facility] Comment on above: Result Comment: Elec tronically Signed By: Kyle HARRY MD\.br\Date and Time Signed: 02/11/23 14:36 EST Outpatient Surgery Discharge Instructionon 02-11-2023 Outpatient Surgery Discharge Instruction [place] [id number] Patient Discharge Instructions PERSON INFORMATION Name: GIGI BOONE Date of : 1970 Current Date: 02/11/2023 14:30:51 PHYSICIANS Admitting Physician: Kyle HARRY MD Comment: Discharge Diagnosis: GIGI BOONE has been given the following list of follow-up instructions, prescriptions, and patient education materials: IF UNABLE TO CONTACT YOUR PHYSICIAN AND YOU FEEL IT IS AN EMERGENCY, GO TO THE NEAREST EMERGENCY ROOM OR CALL 911 Follow up: With: Address: When: Kyle HARRY [address] [place] [address], [address], [place] [phone] [facility] (1) Comments: As we discussed, you are actually a candidate for any of the procedures which have been discussed with you. Comment: PATIENT EDUCATION INFORMATION Instructions: Cystoscopy ? Voiding after the procedure: there may be some pain, burning, urgency, frequency and blood tinged urine following the procedure. These symptoms usually resolve within 2-5 days. Drink the amount of fluid it takes to keep the urine pink to yellow or clear in color. Drinking enough water and fluids will help to ease any discomfort after your procedure. ? If you are having problems that seem out of the ordinary, please call. ? If unable to contact your physician and you feel it is an emergency, go to the nearest emergency room or call 911 ? Diet ? you may resume your normal diet. ? Activity ? you may resume your normal activities ? Call if you have a fever over 100 degrees. PAOLO Fraire DALLAS E, have received the attached patient education materials/instructions and have verbalized understanding: May we do a follow up call? Yes No I was present when discharge instructions were given Patient Signature _ Date Clinican/Nurse Signature Date You may receive a survey from Edilia Dunne asking you to rate your care experience. Your feedback is important and will help us understand what we do well and how we can improve the quality of care we provide to you, your loved ones and our community. It?s an honor to serve you. Thank you for choosing [facility] Normal [facility] Progress Note-Physicianon 11 -06-2023 Progress Note-Physician Patient: GIGI BOONE Age: 52 years Sex: Male : 1970 Associated Diagnoses: None Author: Kyle HARRY MD ROS & PFSH Reviewed I have reviewed the ROS and PFSH from the procedural information filed today with no changes (or with the following changes).. Health Status Allergies: Allergic Reactions (Selected) No Known Allergies, Allergies (1) Active Reaction No Known Allergies None Documented Current medications: (Selected) Prescriptions Prescribed Keflex 500 mg Cap: See Instructions, 1 cap po day prior to procedure, 1 cap po day of procedure following procedure, # 2 cap(s), Refills(s) 0, Pharmacy: [facility] #[id number], 170, cm, 01/15/23 15:22:00 EDT, Height/Length Dosing, 91, kg, 01/15/23 15:22:00 EDT, Weight Dosing Crossville 325 mg-5 mg oral tablet: See Instructions, 1 tab(s), Refill(s) 0, Take 1 hour prior to your procedure, [facility] #[id number], 170, cm, 02/11/23 14:01:00 EST, Height/Length Dosing, 91, kg, 01/15/23 15:22:00 EDT, Weight Dosing Ultracet 325 mg-37.5 mg Tab: See Instructions, 20 tab(s), Refill(s) 0, take 1-2 every 6 hrs prn for pain - following procedure, [facility] #[id number], 170, cm, 02/11/23 14:01:00 EST, Height/Length Dosing, 91, kg, 01/15/23 15:22:00 EDT, Weight Dosing Valium 10 mg Tab: See Instructions, Take 1 hr prior to procedure, # 1 tab(s), Refills(s) 0, Pharmacy: [facility] #[id number], 170, cm, 02/11/23 14:01:00 EST, Height/Length Dosing, 91, kg, 01/15/23 15:22:00 EDT, Weight Dosing ciprofloxacin 500 mg Tab: See Instructions, Start 3 days prior to procedure - twice a day for 7 days, # 14 tab(s), Refills(s) 0, Pharmacy: [facility] #[id number], 170, cm, 02/11/23 14:01:00 EST, Height/Length Dosing, 91, kg, 01/15/23 15:22:00 EDT, Weight Dosing oxybutynin 5 mg Tab: See Instructions, 1 tab(s) Oral bid after procedure, # 10 tab(s), Refills(s) 0, Pharmacy: [facility] #[id number], 170, cm, 02/11/23 14:01:00 EST, Height/Length Dosing, 91, kg, 01/15/23 15:22:00 EDT, Weight Dosing Documented Medications Documented amLODIPine 10 mg Tab: 10 mg = 1 tab(s) dutasteride 0.5 mg Cap: 0.5 mg = 1 cap(s) lisinopril 40 mg Tab: 40 mg = 1 tab(s) metformin 500 mg Tab: 500 mg = 1 tab(s) pioglitazone 30 mg Tab: 30 mg = 1 tab(s) sildenafil: 100 mg, As Directed tamsulosin 0.4 mg Cap: 0.4 mg = 1 cap(s), Home Medications (13) Active amLODIPine 10 mg Tab 10 mg = 1 tab(s) ciprofloxacin 500 mg Tab See Instructions dutasteride 0.5 mg Cap 0.5 mg = 1 cap(s) Keflex 500 mg Cap See Instructions lisinopril 40 mg Tab 40 mg = 1 tab(s) metformin 500 mg Tab 500 mg = 1 tab(s) [place] 325 mg-5 mg oral tablet See Instructions oxybutynin 5 mg Tab See Instructions pioglitazone 30 mg Tab 30 mg = 1 tab(s) sildenafil 100 mg, As Directed tamsulosin 0.4 mg Cap 0.4 mg = 1 cap(s) Ultracet 325 mg-37.5 mg Tab See Instructions Valium 10 mg Tab See Instructions Problem list: All Problems Lower back pain / SNOMED CT 726223573 / Confirmed Hypertension / SNOMED CT 6871744666 / Confirmed GERD (gastroesophageal reflux disease) / SNOMED CT 515663938 / Confirmed Eczema / SNOMED CT 94103934 / Confirmed IBS (irritable bowel syndrome) / SNOMED CT 15520007 / Confirmed Hemorrhoid / SNOMED CT 173886502 / Confirmed Diverticula of colon / SNOMED CT 4547130648 / Confirmed Renal cyst / SNOMED CT 3487144016 / Confirmed Diabetes / SNOMED CT 777848142 / Confirmed Venous thrombosis of leg / SNOMED CT 713233274 / Confirmed ED (erectile dysfunction) / SNOMED CT 8369520823 / Confirmed BPH with obstruction/lower urinary tract symptoms / SNOMED CT 9468693968 / Confirmed Nocturia / SNOMED CT 157213077 / Confirmed, Active Problems (13) BPH with obstruction/lower urinary tract symptoms Diabetes Diverticula of colon Eczema ED (erectile dysfunction) GERD (gastroesophageal reflux disease) Hemorrhoid Hypertension IBS (irritable bowel syndrome) Lower back pain Nocturia Renal cyst Venous thrombosis of leg Objective Additional Findings: Additional Findings: Unexpected findings encountered during today's procedure outside of the original HPI. Measurements from flowsheet : Measurements 02/11/2023 13:59 EST Height/Length Measured 170 cm Height/Length Dosing 170.0 cm Weight Estimated 91 kg The patient continues with bladder outlet obstructive symptomatology. He had previously tried tamsulosin at 0.4 mg and this did not help any symptoms. He was then switched over to dutasteride. No change in symptomatology thus far. He denies blood in the urine or any episodes of urinary retention since his last office visit. Impression and Plan Assessment and Plan: Diagnosis: BPH with obstruction/lower urinary tract symptoms (SPX69-AL N40.1, Working, Medical), Significant and ongoing despite medical management as noted in HPI. . Additional Plan of Care and/or Course of Treatment: Additional Plan of Care and/or Course of Treatment: Discussed results of cystoscopic evaluation with the patient. He witnessed this under v (more content not included)... Normal [facility] Comment on above: Result Comment: Elec tronically Signed By: ROEL CAMPOS, Kyle Caban\.maria e\Date and Time Signed: 02/11/23 15:25 EST Insurance Correspondenceon Insurance Correspondence [id number] Normal [facility] US JENNIE DOP LEG RTon 05-02-19 23 US JENNIE DOP LEG RT EXAMINATION: US JENNIE DOP LEG RT HISTORY: Blood clot ; follow-up DVT COMPARISON: Ultrasound venous Doppler leg right 01/29/2022 FINDINGS: REGION: Right lower extremity THROMBI: None within deep system. COMPRESSIBILITY: Normal compressibility. FLOW: Normal waveform and antegrade flow between 5 and 20 cm/s. OTHER: Short segment of incomplete compressibility of small saphenous vein within mid calf. IMPRESSION: 1. No deep vein thrombus within the right lower extremity. Clearing of previously seen DVT. 2. Short segment of mild residual thrombus within superficial small saphenous vein. Electronically authenticated by: JAMARCUS CABRAL Date: 2022-05-02 16:16 Normal [facility] INSULINon 02-12-2022 Insulin 12.9 uIU/mL Normal 2.6-24.9 [facility] Comment on above: Performed By: #### I NSULIN #### [facility] [address] [address] [address] Ric Marlow CBC AUTO DIFFon 02-10-2022 BASO # 0.1 103/ul Normal 0.0-0.1 [facility] Comment on above: Performed By: #### C BC ####[facility] [address] [address]DrShawn Marlow Basophils/100 WBC (Bld) 0.9 % Normal 0.2-2.0 [facility] Comment on above: Performed By: #### C BC ####[facility] [address] [address]DrShawn Marlow EO # 0.2 103/ul Normal 0.0-0.7 [facility] Comment on above: Performed By: #### C BC ####[facility] [address] [id number]. Ric Marlow Eosinophils/100 WBC (Bld) 3.0 % Normal 0.9-7.0 [facility] Comment on above: Performed By: #### C BC ####[facility] [address] [address]DrShawn Marlow Erythrocyte distribution width (RBC) [Ratio] 12.8 % Normal 11.0-15.0 [facility] Comment on above: Performed By: #### C BC ####[facility] [address] [address]DrShawn Marlow Hematocrit (Bld) [Volume fraction] 41.9 % Critically low 42.0-54.0 [facility] Comment on above: Performed By: #### C BC ####[facility] [address] [address]Dr. Ric Marlow Hemoglobin (Bld) [Mass/Vol] 14.6 g/dL Normal 14.0-18.0 [facility] Comment on above: Performed By: #### C BC ####[facility] [address] [address]Dr. Ric Marlow IG # 0.01 10e3/ul Normal 0.00-0.03 [facility] Comment on above: Performed By: #### C BC ####[facility] [address] [place], [place] [address]Dr. Ric Marlow IG % 0.2 % Normal 0.0-0.5 [facility] Comment on above: Performed By: #### C BC ####[facility] [address] [place], [place] [address]Dr. Ric Marlow LYMPH # 2.2 103/ul Normal 1.2-3.8 [facility] Comment on above: Performed By: #### C BC ####[facility] [address] [place], [place] [address]Dr. Ric Marlow Lymphocytes/100 WBC (Bld) 38.9 % Normal 20.5-60.0 [facility] Comment on above: Performed By: #### C BC ####[facility] [address] [place], [place] [address]Dr. Polydamien Marlow MANUAL DIFF REQ NO Normal [facility] Comment on above: Performed By: #### C BC ####[facility] [address] [place], [place] [address]Dr. Ric Marlow MCH (RBC) [Entitic mass] 29.1 pg Normal 25.9-34.0 [facility] Comment on above: Performed By: #### C BC ####[facility] [address] [place], [place] [address]Dr. Ric Marlow MCHC (RBC) [Mass/Vol] 34.8 g/dL Normal 29.9-35.2 [facility] Comment on above: Performed By: #### C BC ####[facility] [address] [address]Dr. Ric Marlow MCV (RBC) [Entitic vol] 83.5 fL Normal 80.0-94.0 [facility] Comment on above: Performed By: #### C BC ####[facility] [address] [address]Dr. Ric Marlow MONO # 0.5 103/ul Normal 0.3-0.8 [facility] Comment on above: Performed By: #### C BC ####[facility] [address] [place], [place] [address]Dr. Ric Marlow Monocytes/100 WBC (Bld) 8.2 % Normal 1.7-12.0 [facility] Comment on above: Performed By: #### C BC ####[facility] [address] [place], [place] [address]Dr. Ric Marlow NEUT # 2.8 103/ul Normal 1.4-6.5 [facility] Comment on above: Performed By: #### C BC ####[facility] [address] [place], [place] [address]Dr. Ric Marlow Neutrophils/100 WBC (Bld) 48.8 % Normal 43.0-75.0 [facility] Comment on above: Performed By: #### C BC ####[facility] [address] [place], [place] [address]Dr. Ric Marlow Platelet mean volume (Bld) [Entitic vol] 10.2 fL Normal 9.5-13.5 [facility] Comment on above: Performed By: #### C BC ####[facility] [address] [address]Dr. Ric Marlow PLT 237 103/ul Normal 150-450 [facility] Comment on above: Performed By: #### C BC ####[facility] [address] [place], [place] [address]Dr. Ric Marlow RBC 5.02 106/ul Normal 4.70-6.10 [facility] Comment on above: Performed By: #### C BC ####[facility] [address] [place], [place] [address]HpDr. Ric Marlow WBC 5.7 103/ul Normal 4.0-11.0 [facility] Comment on above: Performed By: #### C BC ####[facility] [address] [place], [place] [address]FjDr. Ric Marlow DIRECT LDLon 02-10-2022 Cholesterol in LDL [Mass/Vol] 98 mg/dL Normal [facility] Comment on above: Performed By: #### T SH, LIPID, URIC, CMP, T7, DLDL #### [facility] [address] [address] [address] Ric Marlow DLDL NORMAL SEE BELOW Normal [facility] Comment on above: Result Comment: <100 mg/dl OPTIMAL 100 - 129 mg/dl NEAR OR ABOVE OPTIMAL 130 - 159 mg/dl BORDERLINE HIGH 160 - 189 mg/dl HIGH >190 mg/dl VERY HIGH Performed By: #### T SH, LIPID, URIC, CMP, T7, DLDL #### [facility] [address] [address] [address] Ric Marlow FREE THYROXINE INDEX T7on FTI 2.35 Normal 1.30-4.50 [facility] Comment on above: Performed By: #### T SH, LIPID, URIC, CMP, T7, DLDL #### [facility] [address] [address] [address] Ric Marlow T3U 35.0 % Normal 33.0-40.0 [facility] Comment on above: Performed By: #### T SH, LIPID, URIC, CMP, T7, DLDL #### [facility] [address] [address] [address] Ric Marlow T4 [Mass/Vol] 6.70 ug/dL Normal 4.50-12.10 [facility] Comment on above: Performed By: #### T SH, LIPID, URIC, CMP, T7, DLDL #### [facility] [address] [address] [address] Ric Marlow GLYCOHEMOGLOBIN A1Con 2021 ADA RECOMMENDATION SEE BELOW Normal [facility] Comment on above: Result Comment: ADA RECOMMENDED LIMIT 4.0 - 6.0 ADA THERAPEUTIC TARGET < 7.0 ACTION SUGGESTED > 7.0 Performed By: #### A 1C ####[facility] [address] [address]Dr. Ric Marlow Glucose [Mass/Vol] 166 mg/dL Normal [facility] Comment on above: Performed By: #### A 1C ####[facility] [address] [address]Dr. Ric Marlow HbA1c (Bld) [Mass fraction] 7.4 % Critically high 4.5-6.2 [facility] Comment on above: Performed By: #### A 1C ####[facility] [address] [address]Dr. Ric Marlow LIPID PROFILEon 02-10-2022 CHOL-HDL RATIO NORM SEE BELOW Normal [facility] Comment on above: Result Comment: 3.3 - 4.4 LOW RISK 4.4 - 7.1 AVERAGE RISK 7.1 - 11.0 MODERATE RISK >11.0 HIGH RISK Performed By: #### T SH, LIPID, URIC, CMP, T7, DLDL #### [facility] [address] [address] [address] Ric Marlow Cholesterol [Mass/Vol] 215 mg/dL Critically high <=200 [facility] Comment on above: Performed By: #### T SH, LIPID, URIC, CMP, T7, DLDL #### [facility] [address] [address] [address] Ric Marlow Cholesterol in HDL [Mass/Vol] 29 mg/dL Critically low 40-60 [facility] Comment on above: Performed By: #### T SH, LIPID, URIC, CMP, T7, DLDL #### [facility] [address] [address] [address] Ric Marlow Cholesterol in LDL [Mass/Vol] 93.6 mg/dL Normal [facility] Comment on above: Performed By: #### T SH, LIPID, URIC, CMP, T7, DLDL #### [facility] [address] [address] [address] Ric Marlow Cholesterol.total/Chol esterol in HDL [Mass ratio] 7.4 {ratio} Normal [facility] Comment on above: Performed By: #### T SH, LIPID, URIC, CMP, T7, DLDL #### [facility] [address] [place] [address] Dr. Ric Marlow HDL NORMAL > or = 60 mg/dl - LO W CARDIOVASCULAR RISK <40 mg/dl - HIGH CARDIOVASCULAR RISK Normal [facility] Comment on above: Performed By: #### T SH, LIPID, URIC, CMP, T7, DLDL #### [facility] [address] [address] [address] Ric Marlow LDL CALC NORMAL SEE BELOW Normal [facility] Comment on above: Result Comment: <100 mg/dl OPTIMAL 100 - 129 mg/dl NEAR OR ABOVE OPTIMAL 130 - 159 mg/dl BORDERLINE HIGH 160 - 189 mg/dl HIGH >190 mg/dl VERY HIGH Performed By: #### T SH, LIPID, URIC, CMP, T7, DLDL #### [facility] [address] [address] [address] Ric Marlow Triglyceride [Mass/Vol] 462 mg/dL Critically high <=150 [facility] Comment on above: Performed By: #### T SH, LIPID, URIC, CMP, T7, DLDL #### [facility] [address] [place] [address] Dr. Ric Marlow VLDL CALC 92.4 mg/dL Normal [facility] Comment on above: Performed By: #### T SH, LIPID, URIC, CMP, T7, DLDL #### [facility] [address] [place] [address] Dr. Ric Marlow PROF 14(COMP METB)on 022 Albumin [Mass/Vol] 3.6 g/dL Normal 3.4-5.0 [facility] Comment on above: Performed By: #### T SH, LIPID, URIC, CMP, T7, DLDL #### [facility] [address] [place] [address] Dr. Ric Marlow Albumin/Globulin [Mass ratio] 0.9 {ratio} Normal [facility] Comment on above: Performed By: #### T SH, LIPID, URIC, CMP, T7, DLDL #### [facility] [address] [place] [address] Dr. Ric Marlow ALP [Catalytic activity/Vol] 112 U/L Normal 46-116 [facility] Comment on above: Performed By: #### T SH, LIPID, URIC, CMP, T7, DLDL #### [facility] [address] [place] [address] Dr. Ric Marlow ALT [Catalytic activity/Vol] 42 U/L Normal 16-63 [facility] Comment on above: Performed By: #### T SH, LIPID, URIC, CMP, T7, DLDL #### [facility] [address] [place] [address] Dr. Ric Marlow Anion gap [Moles/Vol] 10.0 mmol/L Normal [facility] Comment on above: Performed By: #### T SH, LIPID, URIC, CMP, T7, DLDL #### [facility] [address] [place] [address] Dr. Ric Marlow AST [Catalytic activity/Vol] 16 U/L Normal 15-37 [facility] Comment on above: Performed By: #### T SH, LIPID, URIC, CMP, T7, DLDL #### [facility] [address] [place] [address] Dr. Ric Marlow Bilirubin [Mass/Vol] 0.4 mg/dL Normal 0.2-1.0 [facility] Comment on above: Performed By: #### T SH, LIPID, URIC, CMP, T7, DLDL #### [facility] [address] [place] [address] Dr. Ric Marlow Calcium [Mass/Vol] 9.3 mg/dL Normal 8.5-10.1 [facility] Comment on above: Performed By: #### T SH, LIPID, URIC, CMP, T7, DLDL #### [facility] [address] [place] [address] Dr. Ric Marlow Chloride [Moles/Vol] 106 mmol/L Normal 98-107 [facility] Comment on above: Performed By: #### T SH, LIPID, URIC, CMP, T7, DLDL #### [facility] [address] [place] [address] Dr. Ric Marlow CO2 [Moles/Vol] 26.1 mmol/L Normal 21.0-32.0 [facility] Comment on above: Performed By: #### T SH, LIPID, URIC, CMP, T7, DLDL #### [facility] [address] [place] [address] Dr. Ric Marlow Creatinine [Mass/Vol] 0.89 mg/dL Normal 0.70-1.30 [facility] Comment on above: Performed By: #### T SH, LIPID, URIC, CMP, T7, DLDL #### [facility] [address] [place] [address] Dr. Ric Marlow EGFR-AF SCOTTISH >60 Normal >=60 [facility] Comment on above: Performed By: #### T SH, LIPID, URIC, CMP, T7, DLDL #### [facility] [address] [place] [address] Dr. Ric Marlow EGFR-NON AF SCOTTISH >60 Normal >=60 [facility] Comment on above: Performed By: #### T SH, LIPID, URIC, CMP, T7, DLDL #### [facility] [address] [place] [address] Dr. Ric Marlow Globulin (S) [Mass/Vol] 3.9 g/dL Normal [facility] Comment on above: Performed By: #### T SH, LIPID, URIC, CMP, T7, DLDL #### [facility] [address] [place] [address] Dr. Ric Marlow Glucose [Mass/Vol] 175 mg/dL Critically high 74-106 [facility] Comment on above: Performed By: #### T SH, LIPID, URIC, CMP, T7, DLDL #### [facility] [address] [place] [address] Dr. Ric Marlow Potassium [Moles/Vol] 4.1 mmol/L Normal 3.5-5.1 [facility] Comment on above: Performed By: #### T SH, LIPID, URIC, CMP, T7, DLDL #### [facility] [address] [address] [address] Ric Marlow Protein [Mass/Vol] 7.5 g/dL Normal 6.4-8.2 [facility] Comment on above: Performed By: #### T SH, LIPID, URIC, CMP, T7, DLDL #### [facility] [address] [place] [address] Dr. Ric Marlow Sodium [Moles/Vol] 138 mmol/L Normal 136-145 [facility] Comment on above: Performed By: #### T SH, LIPID, URIC, CMP, T7, DLDL #### [facility] [address] [place] [address] Dr. Ric Marlow Urea nitrogen [Mass/Vol] 15.0 mg/dL Normal 7.0-18.0 [facility] Comment on above: Performed By: #### T FALGUNI, LIPID, URIC, CMP, T7, DLDL #### [facility] [address] [place] [address] Dr. Ric Marlow Urea nitrogen/Creatinine [Mass ratio] 16.9 mg/mg Normal [facility] Comment on above: Performed By: #### T SH, LIPID, URIC, CMP, T7, DLDL #### [facility] [address] [place] [address] Dr. Ric Marlow TSHon 02-10-2022 TSH 1.293 uIU/mL Normal 0.358-3.740 [facility] Comment on above: Performed By: #### T SH, LIPID, URIC, CMP, T7, DLDL #### [facility] [address] [place] [address] Dr. Ric Marlow URIC ACID SERUMon 02-10-2022 Urate [Mass/Vol] 5.3 mg/dL Normal 3.5-7.2 [facility] Comment on above: Performed By: #### T SH, LIPID, URIC, CMP, T7, DLDL #### [facility] [address] [place] [address] Dr. Ric Marlow US JENNIE DOP LEG RTon 01-30-20 US JENNIE DOP LEG RT EXAMINATION: US JENNIE DOP LEG RT HISTORY: Adult health examination ; right ankle swelling COMPARISON: No relevant comparison available. FINDINGS: REGION: Right lower extremity. THROMBI: Short segment of thrombosed posterior tibial veins at level of foot. Veins are patent and compressible by level of ankle. Thrombosed small saphenous vein throughout its length. COMPRESSIBILITY: Noncompressible segments. FLOW: Normal waveform and antegrade flow between 5 and 20 cm/s. OTHER: None. IMPRESSION: 1. Short segment thrombus within the distal posterior tibial vein(s) of questionable clinical significance. 2. Thrombosed small saphenous vein (superficial vein) throughout its length, likely accounting for patient's symptoms. Electronically authenticated by: JAMARCUS CABRAL Date: 2022-01-29 18:50 Normal [facility] Vital Signs Date Time Vital Sign Value Performing Clinician Enedelia garnett 01-29-2024 08:17-0400 Blood Pressure Location Kyle Tutor [facility] 01-29-2024 08:17-0400 Diastolic blood pressure 88 mm[Hg] Kyle [facility] 01-29-2024 08:17-0400 Heart rate 75 /min Kyle Tutor [facility] 01-29-2024 08:17-0400 Systolic blood pressure 125 mm[Hg] Kyle Tutor [facility] 10-18-2023 15:59-0400 Diastolic blood pressure 66 mm[Hg] MD Abdulkadir Lockett Work Phone: [facility] 10-18-2023 15:59-0400 Heart rate 92 /min MD Abdulkadir Lockett Work Phone: [facility] 10-18-2023 15:59-0400 Respiratory rate 18 /min MD Abdulkadir Lockett Work Phone: [facility] 10-18-2023 15:59-0400 SaO2% (BldA) [Mass fraction] 96 % MD Abdulkadir Lockett Work Phone: [facility] 10-18-2023 15:59-0400 Systolic blood pressure 114 mm[Hg] MD Abdulkadir Lockett Work Phone: [facility] 10-18-2023 11:28-0400 Body temperature 97.7 [degF] MD Abdulkadir Lockett Work Phone: [facility] 10-18-2023 06:00-0400 Body weight 95.1 kg MD Abdulkadir Lockett Work Phone: [facility] 10-17-2023 09:49-0400 Inhaled oxygen flow rate 8 L/min MD Abdulkadir Lockett Work Phone: [facility] 10-17-2023 08:50-0400 Body height 170.18 cm MD Abdulkadir Lockett Work Phone: [facility] 10-17-2023 08:50-0400 Body mass index (BMI) [Ratio] 33.1 kg/m2 MD Abdulkadir Lockett Work Phone: [facility] 06-18-2023 14:31-0400 Body temperature 98.6 [degF] Kyle HARRY [facility] 06-18-2023 14:31-0400 Diastolic blood pressure 90 mm[Hg] Kyle COOK [facility] 06-18-2023 14:31-0400 Heart rate 84 /min Kyle COOK [facility] 06-18-2023 14:31-0400 Respiratory rate 16 /min Kyle COOK [facility] 06-18-2023 14:31-0400 Systolic blood pressure 134 mm[Hg] Kyle COOK [facility] 05-01-2023 08:32-0500 Blood Pressure Location LORE ZAPATA [facility] 05-01-2023 08:32-0500 Diastolic blood pressure 82 mm[Hg] LORE ZAPATA [facility] 05-01-2023 08:32-0500 Heart rate 84 /min LORE ZAPATA [facility] 05-01-2023 08:32-0500 Respiratory rate 16 /min LORE ZAPATA [facility] 05-01-2023 08:32-0500 Systolic blood pressure 128 mm[Hg] LORE ZAPATA [facility] Encounters Encounter Date Encounter Type Care Provider Facility Start: 01-29-2024 ambulatory Kyle HARRY Facility :[facility] Start: 01-29-2024 End: 01-29-2024 Patient encounter procedure Kyle HARRY [facility] Start: 10-30-2023 End: 10-30-2023 ambulatory Kyle HARRY Facility: [place] Start: 10-30-2023 End: 10-30-2023 Patient encounter procedure Kyle HARRY [facility] [place] Start: 10-23-2023 End: 10-23-2023 ambulatory Kyle HARRY Facility: [place] Start: 10-23-2023 End: 10-23-2023 Patient encounter procedure Kyle HARRY [facility] [place] Start: 10-17-2023 End: 10-18-2023 Admission to same day surgery center MD Abdulkadir Lockett Work Phone: [facility] [place] Start: 10-17-2023 End: 10-18-2023 ambulatory MD Abdulkadir Lockett Work Phone: [facility] Work Phone: Start: 10-17-2023 End: 10-17-2023 ambulatory Kyle HARRY Facility::[id number] Start: 10-03-2023 End: 10-03-2023 Patient encounter procedure MD Abdulkadir Lockett Work Phone: [facility] Work Phone: Start: 10-03-2023 End: 10-03-2023 ambulatory MD Abdulkadir Lockett Work Phone: [facility] Work Phone: Start: 08-19-2023 End: 08-19-2023 ambulatory Kyle HARRY Facility:[facility] Start: 08-19-2023 End: 08-19-2023 Patient encounter procedure Kyle HARRY [facility] Start: 06-18-2023 End: 06-18-2023 ambulatory Kyle HARRY Facility:[facility] Start: 06-18-2023 End: 06-18-2023 Patient encounter procedure Kyle HARRY [facility] [place] Start: 05-01-2023 End: 05-01-2023 ambulatory LORE ZAPATA Facility:[facility] [place] Start: 05-01-2023 End: 05-01-2023 Patient encounter procedure LORE ZAPATA [facility] [place] Start: 03-29-2023 End: 03-29-2023 ambulatory Noemy Mckeon Facility:[facility] [place] Start: 03-29-2023 End: 03-29-2023 Patient encounter procedure Noemy Mckeon [facility] [place] Start: 03-25-2023 End: 03-25-2023 ambulatory Kylemonique HRARY Facility:[facility] Start: 03-25-2023 End: 03-25-2023 Patient encounter procedure Kyle HARRY [facility] Start: 02-11-2023 End: 02-11-2023 ambulatory Kyle P ROEL Facility:[facility] Start: 02-11-2023 End: 02-11-2023 Patient encounter procedure Kyle HARRY [facility] Start: 05-02-2022 End: 05-03-[address] ABDULKADIR LOCKETT Facility:[facility] Start: 02-15-2022 Encounter for genera l adult medical examination without abnormal findings DR ABDULKADIR LOCKETT [facility] Start: 02-10-2022 End: 02-11-[address] ABDULKADIR LOCKETT Facility:[facility] Start: 02-10-2022 End: 02-11-2022 Encounter for general adult medical examination without abnormal findings DR ABDULKADIR LOCKETT Facility:[facility] Start: 01-29-2022 End: 01-30-[address] ABDULKADIR LOCKETT Facility:[facility] Procedures Date Procedure Procedure Detail Performing Clinician Start: 10-17-2023 Transurethral prostatectomy MD Abdulkadir Lockett Work Phone: Start: 03-25-2023 Transurethral cystoscopy LORE ZAPATA Start: 03-25-2023 Transurethral insert ion of prostatic urethral lift implant LORE ZAPATA Start: 02-11-2023 Transurethral cystoscopy LORE ZAPATA Start: 02-11-2023 Ultrasonography by transrectal approach LORE ZAPATA Start: 02-10-[address] JOSE MARTIN LOCKETT Comment on above: Performed By: #### P [facility] #### [facility] [address] [address] [address] Ric Marlow Start: 09-26-2016 Colonoscopy Kyle JAKCSON History of transuret hral prostatectomy S/P TURP MD Abdulkadir Lockett Work Phone: Plan of Treatment Date Care Activity Detail Author Start: 10-18-2023 [facility] Start: 10-17-2023 Referral to clinical director of marketing [facility] Start: 10-17-2023 Hospital admission [facility] Patient Education Know your Meds [facility] Work Phone: Patient referral [facility] Work Phone: Immunizations Immunization Date Immunization Notes Care Provider Fa [facility] 02-12-2023 influenza virus vacc ine, unspecified formulation Kyle HARRY [facility] 03-18-2021 SARS-CoV-2 (COVID-19 ) mRNA-1273 vaccine Kyle HARRY [facility] 02-24-2021 influenza, unspecifi ed formulation Kyle HARRY [facility] 01-27-2021 influenza virus vacc ine, unspecified formulation Kyle HARRY [facility] 07-27-2020 SARS-CoV-2 (COVID-19 ) mRNA-1273 vaccine Kyle HARRY [facility] 06-29-2020 SARS-CoV-2 (COVID-19 ) mRNA-1273 vaccine Kyle HARRY [facility] 12-17-2019 influenza virus vacc ine, unspecified formulation Kyle HARRY [facility] 12-28-2016 pneumococcal polysaccharide vaccine, 23 valent Kyle HARRY [facility] 02-06-2015 influenza virus vacc ine, unspecified formulation Kyle HARRY [facility] 04-29-2013 influenza virus vacc ine, unspecified formulation Kyle HARRY [facility] Payers Date Payer Category Payer Self-pay 1970 Unknown [id number] 2.16.84 [id number] 1970 Unknown [id number] 2.16.84 [id number] 1970 Unknown [id number] 2.16.84 [id number] 1970 Unknown [id number] 2.16.8 [id number] 1970 Unknown [id number] 2.16.8 [id number] 1970 Unknown [id number] 2.16.8 [id number] 1970 Unknown [id number] 2.16.8 [id number] 1970 Unknown [id number] 2.16.8 [id number] 1970 Unknown [id number] 2.16.8 [id number] 1970 Unknown [id number] 2.16.8 [id number] 1970 Unknown [id number] 2.16.8 [id number] 1970 Unknown [id number] 2.16.8 [id number] 1970 Unknown [id number] 2.16.8 [id number] 1959 Unknown [id number] 1959 Unknown [id number] Unknown [id number] 2.16.8 [id number] Unknown [id number] 2.16.8 [id number] Social History Date Type Detail Facility Start: 01-15-2023 End: 01-29-2024 Tobacco smoking status Ex-smoker (finding) [facility] Sex Assigned At Male [facility] Tobacco smoking status Never [facility] Start: 1970 Sex Assigned At Male F [facility] Goals Date Patient Goal Desired Activity /State Functional Status Date Assessment Result Facility 01-29-2024 Functional Status N/A [facility] 10-30-2023 Functional Status N/A [facility] 10-17-2023 Functional status Patient at [facility] Work Phone: 06-18-2023 Functional Status N/A [facility] 05-01-2023 Functional Status N/A [facility] 03-25-2023 Functional Status N/A [facility] 03-15-2023 Functional Status [facility] 02-11-2023 Functional Status N/A [facility] Mental Status Date Assessment Result Facility 10-17-2023 Cognitive function Cognitive Sta tus Patient at Baseline [facility] Work Phone: Clinical Notes 02-11-2023 to 01-29-2024 Note Date & Type Note Facility 01-29-2024 Hospital Discharge instructions Patient Education 01/29/2024 08:49:07 Benign Prostatic Hyperplasia Benign Prostatic Hyperplasia Benign prostatic hyperplasia (BPH) is an enlarged prostate gland that is caused by the normal aging process. The prostate may get bigger as a man gets older. The condition is not caused by cancer. The prostate is a walnut-sized gland that is involved in the production of semen. It is located in front of the rectum and below the bladder. The bladder stores urine. The urethra carries stored urine out of the body. An enlarged prostate can press on the urethra. This can make it harder to pass urine. The buildup of urine in the bladder can cause infection. Back pressure and infection may progress to bladder damage and kidney (renal) failure. What are the causes? This condition is part of the normal aging process. However, not all men develop problems from this condition. If the prostate enlarges away from the urethra, urine flow will not be blocked. If it enlarges toward the urethra and compresses it, there will be problems passing urine. What increases the risk? This condition is more likely to develop in men older than 50 years. What are the signs or symptoms? Symptoms of this condition include: Getting up often during the night to urinate. Needing to urinate frequently during the day. Difficulty starting urine flow. Decrease in size and strength of your urine stream. Leaking (dribbling) after urinating. Inability to pass urine. This needs immediate treatment. Inability to completely empty your bladder. Pain when you pass urine. This is more common if there is also an infection. Urinary tract infection (UTI). How is this diagnosed? This condition is diagnosed based on your medical history, a physical exam, and your symptoms. Tests will also be done, such as: A post-void bladder scan. This measures any amount of urine that may remain in your bladder after you finish urinating. A digital rectal exam. In a rectal exam, your health care provider checks your prostate by putting a lubricated, gloved finger into your rectum to feel the back of your prostate gland. This exam detects the size of your gland and any abnormal lumps or growths. An exam of your urine (urinalysis). A prostate specific antigen (PSA) screening. This is a blood test used to screen for prostate cancer. An ultrasound. This test uses sound waves to electronically produce a picture of your prostate gland. Your health care provider may refer you to a specialist in kidney and prostate diseases (urologist). How is this treated? Once symptoms begin, your health care provider will monitor your condition (active surveillance or watchful waiting). Treatment for this condition will depend on the severity of your condition. Treatment may include: Observation and yearly exams. This may be the only treatment needed if your condition and symptoms are mild. Medicines to relieve your symptoms, including: ?Medicines to shrink the prostate. ?Medicines to relax the muscle of the prostate. Surgery in severe cases. Surgery may include: ?Prostatectomy. In this procedure, the prostate tissue is removed completely through an open incision or with a laparoscope or robotics. ?Transurethral resection of the prostate (TURP). In this procedure, a tool is inserted through the opening at the tip of the penis (urethra). It is used to cut away tissue of the inner core of the prostate. The pieces are removed through the same opening of the penis. This removes the blockage. ?Transurethral incision (TUIP). In this procedure, small cuts are made in the prostate. This lessens the prostate's pressure on the urethra. ?Transurethral microwave thermotherapy (TUMT). This procedure uses microwaves to create heat. The heat destroys and removes a small amount of prostate tissue. ?Transurethral needle ablation (TUNA). This procedure uses radio frequencies to destroy and remove a small amount of prostate tissue. ?Interstitial laser coagulation (ILC). This procedure uses a laser to destroy and remove a small amount of prostate tissue. ?Transurethral electrovaporization (TUVP). This procedure uses electrodes to destroy and remove a small amount of prostate tissue. ?Prostatic urethral lift. This procedure inserts an implant to push the lobes of the prostate away from the urethra. Follow these instructions at home: Take yfjg-aks-sasikcc and prescription medicines only as told by your health care provider. Monitor your symptoms for any changes. Contact your health care provider with any changes. Avoid drinking large amounts of liquid before going to bed or out in public. Avoid or reduce how much caffeine or alcohol you drink. Give yourself time when you urinate. Keep all follow-up visits. This is important. Contact a health care provider if: You have unexplained back pain. Your symptoms do not get better with treatment. You develop side effects from the medicine you are taking. Your urine becomes very dark or has a bad smell. Your lower abdomen becomes distended and you have trouble passing urine. Get help right away if: You have a fever or chills. You suddenly cannot urinate. You feel light-headed or very dizzy, or you faint. There are large amounts of blood or clots in your urine. Your urinary problems become hard to manage. You develop moderate to severe low back or flank pain. The flank is the side of your body between the ribs and the hip. These symptoms may be an emergency. Get help right away. Call 911. Do not wait to see if the symptoms will go away. Do not drive yourself to the hospital. Summary Benign prostatic hyperplasia (BPH) is an enlarged prostate that is caused by the normal aging process. It is not caused by cancer. An enlarged prostate can press on the urethra. This can make it hard to pass urine. This condition is more likely to develop in men older than 50 years. Get help right away if you suddenly cannot urinate. This information is not intended to replace advice given to you by your health care provider. Make sure you discuss any questions you have with your health care provider. Document Revised: 10/11/2021 Document Reviewed: 10/11/2021 [employer] Patient Education 2023 [employer]. Follow Up Care 10/30/2023 08:21:07 With:ROEL CAMPOS, Kyle Caban, URL Address: [address] [place] [address]- When: Unknown [facility] 10-30-2023 Hospital Discharge instructions Patient Education 10/30/2023 07:47:51 Benign Prostatic Hyperplasia Benign Prostatic Hyperplasia Benign prostatic hyperplasia (BPH) is an enlarged prostate gland that is caused by the normal aging process. The prostate may get bigger as a man gets older. The condition is not caused by cancer. The prostate is a walnut-sized gland that is involved in the production of semen. It is located in front of the rectum and below the bladder. The bladder stores urine. The urethra carries stored urine out of the body. An enlarged prostate can press on the urethra. This can make it harder to pass urine. The buildup of urine in the bladder can cause infection. Back pressure and infection may progress to bladder damage and kidney (renal) failure. What are the causes? This condition is part of the normal aging process. However, not all men develop problems from this condition. If the prostate enlarges away from the urethra, urine flow will not be blocked. If it enlarges toward the urethra and compresses it, there will be problems passing urine. What increases the risk? This condition is more likely to develop in men older than 50 years. What are the signs or symptoms? Symptoms of this condition include: Getting up often during the night to urinate. Needing to urinate frequently during the day. Difficulty starting urine flow. Decrease in size and strength of your urine stream. Leaking (dribbling) after urinating. Inability to pass urine. This needs immediate treatment. Inability to completely empty your bladder. Pain when you pass urine. This is more common if there is also an infection. Urinary tract infection (UTI). How is this diagnosed? This condition is diagnosed based on your medical history, a physical exam, and your symptoms. Tests will also be done, such as: A post-void bladder scan. This measures any amount of urine that may remain in your bladder after you finish urinating. A digital rectal exam. In a rectal exam, your health care provider checks your prostate by putting a lubricated, gloved finger into your rectum to feel the back of your prostate gland. This exam detects the size of your gland and any abnormal lumps or growths. An exam of your urine (urinalysis). A prostate specific antigen (PSA) screening. This is a blood test used to screen for prostate cancer. An ultrasound. This test uses sound waves to electronically produce a picture of your prostate gland. Your health care provider may refer you to a specialist in kidney and prostate diseases (urologist). How is this treated? Once symptoms begin, your health care provider will monitor your condition (active surveillance or watchful waiting). Treatment for this condition will depend on the severity of your condition. Treatment may include: Observation and yearly exams. This may be the only treatment needed if your condition and symptoms are mild. Medicines to relieve your symptoms, including: ?Medicines to shrink the prostate. ?Medicines to relax the muscle of the prostate. Surgery in severe cases. Surgery may include: ?Prostatectomy. In this procedure, the prostate tissue is removed completely through an open incision or with a laparoscope or robotics. ?Transurethral resection of the prostate (TURP). In this procedure, a tool is inserted through the opening at the tip of the penis (urethra). It is used to cut away tissue of the inner core of the prostate. The pieces are removed through the same opening of the penis. This removes the blockage. ?Transurethral incision (TUIP). In this procedure, small cuts are made in the prostate. This lessens the prostate's pressure on the urethra. ?Transurethral microwave thermotherapy (TUMT). This procedure uses microwaves to create heat. The heat destroys and removes a small amount of prostate tissue. ?Transurethral needle ablation (TUNA). This procedure uses radio frequencies to destroy and remove a small amount of prostate tissue. ?Interstitial laser coagulation (ILC). This procedure uses a laser to destroy and remove a small amount of prostate tissue. ?Transurethral electrovaporization (TUVP). This procedure uses electrodes to destroy and remove a small amount of prostate tissue. ?Prostatic urethral lift. This procedure inserts an implant to push the lobes of the prostate away from the urethra. Follow these instructions at home: Take wryq-kon-fkmckux and prescription medicines only as told by your health care provider. Monitor your symptoms for any changes. Contact your health care provider with any changes. Avoid drinking large amounts of liquid before going to bed or out in public. Avoid or reduce how much caffeine or alcohol you drink. Give yourself time when you urinate. Keep all follow-up visits. This is important. Contact a health care provider if: You have unexplained back pain. Your symptoms do not get better with treatment. You develop side effects from the medicine you are taking. Your urine becomes very dark or has a bad smell. Your lower abdomen becomes distended and you have trouble passing urine. Get help right away if: You have a fever or chills. You suddenly cannot urinate. You feel light-headed or very dizzy, or you faint. There are large amounts of blood or clots in your urine. Your urinary problems become hard to manage. You develop moderate to severe low back or flank pain. The flank is the side of your body between the ribs and the hip. These symptoms may be an emergency. Get help right away. Call 911. Do not wait to see if the symptoms will go away. Do not drive yourself to the hospital. Summary Benign prostatic hyperplasia (BPH) is an enlarged prostate that is caused by the normal aging process. It is not caused by cancer. An enlarged prostate can press on the urethra. This can make it hard to pass urine. This condition is more likely to develop in men older than 50 years. Get help right away if you suddenly cannot urinate. This information is not intended to replace advice given to you by your health care provider. Make sure you discuss any questions you have with your health care provider. Document Revised: 10/11/2021 Document Reviewed: 10/11/2021 [employer] Patient Education 2022 [employer]. Follow Up Care 08/19/2023 15:00:22 With:ROEL CAMPOS, Kyle Caban, URL Address: [facility] [place] [id number] When: Unknown [facility] 10-30-2023 Note Patient Education Urology Benign Prostatic Hyperplasia Benign prostatic hyperplasia (BPH) is an enlarged prostate gland that is caused by the normal aging process. The prostate may get bigger as a man gets older. The condition is not caused by cancer. The prostate is a walnut-sized gland that is involved in the production of semen. It is located in front of the rectum and below the bladder. The bladder stores urine. The urethra carries stored urine out of the body. An enlarged prostate can press on the urethra. This can make it harder to pass urine. The buildup of urine in the bladder can cause infection. Back pressure and infection may progress to bladder damage and kidney (renal) failure. What are the causes? This condition is part of the normal aging process. However, not all men develop problems from this condition. If the prostate enlarges away from the urethra, urine flow will not be blocked. If it enlarges toward the urethra and compresses it, there will be problems passing urine. What increases the risk? This condition is more likely to develop in men older than 50 years. What are the signs or symptoms? Symptoms of this condition include: ? Getting up often during the night to urinate. ? Needing to urinate frequently during the day. ? Difficulty starting urine flow. ? Decrease in size and strength of your urine stream. ? Leaking (dribbling) after urinating. ? Inability to pass urine. This needs immediate treatment. ? Inability to completely empty your bladder. ? Pain when you pass urine. This is more common if there is also an infection. ? Urinary tract infection (UTI). How is this diagnosed? This condition is diagnosed based on your medical history, a physical exam, and your symptoms. Tests will also be done, such as: ? A post-void bladder scan. This measures any amount of urine that may remain in your bladder after you finish urinating. ? A digital rectal exam. In a rectal exam, your health care provider checks your prostate by putting a lubricated, gloved finger into your rectum to feel the back of your prostate gland. This exam detects the size of your gland and any abnormal lumps or growths. ? An exam of your urine (urinalysis). ? A prostate specific antigen (PSA) screening. This is a blood test used to screen for prostate cancer. ? An ultrasound. This test uses sound waves to electronically produce a picture of your prostate gland. Your health care provider may refer you to a specialist in kidney and prostate diseases (urologist). How is this treated? Once symptoms begin, your health care provider will monitor your condition (active surveillance or watchful waiting). Treatment for this condition will depend on the severity of your condition. Treatment may include: ? Observation and yearly exams. This may be the only treatment needed if your condition and symptoms are mild. ? Medicines to relieve your symptoms, including: ? Medicines to shrink the prostate. ? Medicines to relax the muscle of the prostate. ? Surgery in severe cases. Surgery may include: ? Prostatectomy. In this procedure, the prostate tissue is removed completely through an open incision or with a laparoscope or robotics. ? Transurethral resection of the prostate (TURP). In this procedure, a tool is inserted through the opening at the tip of the penis (urethra). It is used to cut away tissue of the inner core of the prostate. The pieces are removed through the same opening of the penis. This removes the blockage. ? Transurethral incision (TUIP). In this procedure, small cuts are made in the prostate. This lessens the prostate's pressure on the urethra. ? Transurethral microwave thermotherapy (TUMT). This procedure uses microwaves to create heat. The heat destroys and removes a small amount of prostate tissue. ? Transurethral needle ablation (TUNA). This procedure uses radio frequencies to destroy and remove a small amount of prostate tissue. ? Interstitial laser coagulation (ILC). This procedure uses a laser to destroy and remove a small amount of prostate tissue. ? Transurethral electrovaporization (TUVP). This procedure uses electrodes to destroy and remove a small amount of prostate tissue. ? Prostatic urethral lift. This procedure inserts an implant to push the lobes of the prostate away from the urethra. Follow these instructions at home: ? Take rjnb-yei-dswmccv and prescription medicines only as told by your health care provider. ? Monitor your symptoms for any changes. Contact your health care provider with any changes. ? Avoid drinking large amounts of liquid before going to bed or out in public. ? Avoid or reduce how much caffeine or alcohol you drink. ? Give yourself time when you urinate. ? Keep all follow-up visits. This is important. Contact a health care provider if: ? You have unexplained back pain. ? Your symptoms do not get better with treatment. ? You develop side effec (more content not included)... [facility] 10-18-2023 Progress note Note Date/Time October 18, 2023 4:28 pm [facility] [address] [place] [address] Urology Progress Note Signed Patient: Gigi Boone MR#: [id number] : 1970 Acct:[id number] Age/Sex: 53 / M Adm Date: 4 Loc: 4N Room: [address] [place] [address] Type: REG SD Attending Dr: Kyle Harry MD Copies to: ~ Date of Service: 10/18/2023 Subjective Subjective HPI: The patient is doing well. Minimal pain. CBI has been weaned down. No need for irrigation of the catheter. He is eating okay. No chest pain or shortness of breath. Exam Physical Exam Vital Signs: Temp Pulse Resp BP Pulse Ox O2 Del Method O2 Flow Rate 97.7 F 92 18 114/66 96 Room Air 8 10/18/23 11:28 10/18/23 15:59 10/18/23 15:59 10/18/23 15:59 10/18/23 15:59 10/18/23 15:59 10/17/23 09:49 Narrative: Awake alert oriented Abdomen soft, nontender without bladder distention Normal external male genitalia. Indwelling Ortiz catheter with CBI off and draining clear. Lower extremities: Negative Homans' sign Objective Intake & Output 24 hour I&O: Intake & Output 10/18/23 10/18/23 10/18/23 07:59 15:59 23:59 Intake Total 1600 / 2650 1050 / 2650 Output Total 1900 / 1900 Balance -300 / 750 1050 / 750 Weight 95.1 kg Labs 10/18/23 05:26 10/18/23 05:26 Laboratory Results - Last 48 hrs. 10/18/23 05:26: Hgb 14.1, Hct 40.8, PHA Creatinine Clear 114.50, Sodium 137, Potassium 4.2, Chloride 107, Carbon Dioxide 22.0, Anion Gap 12.2, BUN 12, Creatinine 0.82, Est GFR (CKD-EPI) > 60.0, Glucose 270 H, Calcium 8.5 L 10/17/23 09:54: POC Glucose 264 10/17/23 08:56: POC Glucose 268, POC Glucose Comment Glu2: cleaned meter 10/17/23 07:38: POC Glucose 290 Assessment/Plan Assessment/Plan (1) Diabetes mellitus, type 2: Code(s): E11.9 - Type 2 diabetes mellitus without complications (2) BPH (benign prostatic hyperplasia): Code(s): N40.0 - Benign prostatic hyperplasia without lower urinary tract symptoms (3) Hypertension: Code(s): I10 - Essential (primary) hypertension (4) S/P TURP: Code(s): Z90.79 - Acquired absence of other genital organ(s) Plan Doing well postoperatively. Traction released from the Ortiz. Leg bag for catheter Discharge home Follow-up next week for catheter removal. Get back on his diabetic medications etc. and follow-up with PCP. The patient and his are in agreement with that plan. Documented By: Kyle Harry MD 10/18/231626 Signed By: <Electronically signed by MD Kyle Harry> 10/18/231627 [facility] Work Phone: 1(783) 494-517007-12-2024 Progress note Author Sam Coulter [facility] October 18, 2023 12:30pm Note Date/Time October 18, 2023 12:3 0pm [facility] [address] [place] [address] Hospitalist Progress Note Signed Patient: Gigi Boone MR#: [id number] : 1970 Acct:[id number] Age/Sex: 53 / M Adm Date: 4 Loc: 4N Room: [address] [place] [address] Type: REG [facility] [place]: Kyle Harry MD Copies to: ~ Date of Service: 10/18/2023 Subjective Subjective Narrative: 53-year-old white male past medical history of hypertension, diabetes type 2, BPH who underwent TURP surgery today. We have been asked to see the patient to help with medical management. Patient doing well postsurgery. He has no pain. He denies having any chest pain or shortness of breath. No orthopnea or PND. No nausea vomiting. No abdominal pain. Patient on radiation system. No hematuria. Seen and examined Clinically stable No complaints Exam Physical Exam Vital Signs: Temp Pulse Resp BP Pulse Ox O2 Del Method O2 Flow Rate 97.7 F 84 12 118/76 95 Room Air 8 10/18/23 11:28 10/18/23 11:28 10/18/23 11:28 10/18/23 11:28 10/18/23 11:28 10/18/23 11:28 10/17/23 09:49 Narrative: General patient laying in bed in no acute distress alert awake oriented x3 HEENT PERRLA Neck supple no JVD no carotid bruit CVS S1-S2 regular rate and rhythm no murmur no gallop Chest clear to auscultation percussion Abdomen soft bowel sounds normoactive no rebound no guarding Extremities no stenosis no clubbing no edema Musculoskeletal exam normal no joint effusion Neurologic exam oriented x3 alert awake no focal left Psychiatry: Normal insight and judgment Skin: no rash or lesions Objective Lab Results 10/18/23 05:26 10/18/23 05:26 Meds Allergies and Active Meds Allergies No Known Allergies Allergy (Verified 10/17/23 07:31) Active Meds: Active Medications Generic Name Dose Route Start Last Admin Trade Name Freq PRN Reason Stop Dose Admin Acetaminophen 500 mg 10/17/23 13:15 10/18/23 08:45 Acetaminophen 500 Mg Tablet PO 10/20/23 13:14 500 mg Q6H DIMPLE Administration Amlodipine Besylate 10 mg 10/17/23 21:00 10/17/23 21:43 Amlodipine 10 Mg Tablet PO 10/16/24 20:59 10 mg QPM DIMPLE Administration Hydromorphone HCl 0.5 mg 10/17/23 10:04 Hydromorphone 0.5 Mg/0.5 Ml Syringe IV-PUSH Q2H PRN Severe Pain Hyoscyamine 0.125 mg 10/17/23 10:04 Hyoscyamine Sulfate 0.125 Mg Tab.Rapdis SUBLINGUAL 10/16/24 10:03 Q4H PRN Bladder spasms Sodium Chloride 1,000 mls @ 75 mls/hr 10/17/23 10:15 10/18/23 00:26 0.9% Sodium Chloride 1,000 Ml IV 10/16/24 10:14 75 mls/hr .[id number] DIMPLE Administration Cefazolin Sodium 1 gm in 50 mls @ 100 mls/hr 10/17/23 17:00 10/18/23 08:46 Ancef IV 100 mls/hr Q8H DIMPLE Administration Lisinopril 40 mg 10/17/23 21:00 10/17/23 21:43 Lisinopril 40 Mg Tablet PO 10/16/24 20:59 40 mg QPM DIMPLE Administration Metformin HCl 500 mg 10/17/23 17:00 10/18/23 08:46 Metformin 500 Mg Tablet PO 10/16/24 16:59 500 mg BID.WITH.MEALS DIMPLE Administration Ondansetron HCl 4 mg 10/17/23 10:04 10/17/23 10:54 Ondansetron 4 Mg/2 Ml Vial IV-PUSH 10/16/24 10:03 4 mg Q6H PRN Administration Nausea Pioglitazone HCl 30 mg 10/17/23 21:00 10/17/23 21:43 Pioglitazone 30 Mg Tablet PO 10/16/24 20:59 30 mg QPM DIMPLE Administration Sodium Chloride 0 ml 10/17/23 07:14 Sodium Chloride 0.9 % 10 Ml Syringe IV-PUSH 10/16/24 07:13 PRN PRN Flush Sodium Chloride 0 ml 10/17/23 07:15 Sodium Chloride 0.9 % 10 Ml Syringe IV-PUSH 10/16/24 07:14 PRN PRN Flush Tamsulosin HCl 0.4 mg 10/17/23 21:00 10/17/23 21:43 Tamsulosin 0.4 Mg Cap.Er.24h PO 10/16/24 20:59 0.4 mg QPM DIMPLE Administration Temazepam 15 mg 10/17/23 10:04 Temazepam 15 Mg Capsule PO 04/14/24 10:03 QHS PRN Sleep A&P - Hospitalist Assessment/Plan (1) Diabetes mellitus, type 2: (2) BPH (benign prostatic hyperplasia): (3) Hypertension: (4) S/P TURP: Plan S/p TURP: On irrigation system management by urology Hypertension: Resume lisinopril Norvasc Diabetes type 2: Accu-Chek ACHS insulin sliding scale resume metformin and Actos BPH Flomax s/p TURP Ok to dc home from medical standpoint Documented By: Sam Coulter MD 10/18/23 1229 Signed By: <Electronically signed by Sam Coulter MD> 10/18/23 1230 [facility] Work Phone: [phone]) 345-284407-11-2024 Consult note Author Sam Coulter [facility] October 17, 2023 2:22pm Note Date/Time October 17, 2023 2:23 pm [facility] [address] [place] [address] Hospitalist Consult Note Signed Patient: Gigi Boone MR#: [id number] : 1970 Acct:[id number] Age/Sex: 53 / M Adm Date: 4 Loc: 4N Room: 8P1991-7 Type: [place] [facility] [place] Dr: Kyle Harry MD Copies to: MD Abdulkadir Shah MD Gregory P Cook, MD~ HPI DATE OF CONSULTATION: 10/17/23 REQUESTING PROVIDER: Kyle Harry Consult Narrative Reason for Consult: Post TURP medical management for hypertension and diabetes HPI: 53-year-old white male past medical history of hypertension, diabetes type 2, BPH who underwent TURP surgery today. We have been asked to see the patient to help with medical management. Patient doing well postsurgery. He has no pain. He denies having any chest pain or shortness of breath. No orthopnea or PND. No nausea vomiting. No abdominal pain. Patient on radiation system. No hematuria. Review of Systems Review of Systems All other systems reviewed & are negative unless noted below or in HPI [facility] Medical History (Updated 10/17/23 @ 14:21 by Sam Coulter MD) Back pain Urolith BPH (benign prostatic hyperplasia) Heartburn Diabetes mellitus, type 2 DVT (deep venous thrombosis) Hypertension Surgical History (Updated 10/17/23 @ 14:21 by Sam Coulter MD) History of orthopedic surgery right wrist Family History (Updated 10/03/23 @ 17:01 by Karley Tiwari RN) Mother Myocardial infarction Father Diabetes mellitus, type 2 Hypertension CHF (congestive heart failure) Social History Smoking Status: Former smoker Tobacco Type: cigarettes Substance Use Type: Alcohol Meds Medications and Allergies Allergies No Known Allergies Allergy (Verified 10/17/23 07:31) Home Medications amlodipine 10 mg tablet 10 mg PO QPM 10/03/23 [History Confirmed 10/17/23] lisinopril 40 mg tablet 40 mg PO QPM 10/03/23 [History Confirmed 10/17/23] metformin 500 mg tablet 500 mg PO BID 10/03/23 [History Confirmed 10/17/23] naproxen sodium 220 mg tablet (Aleve) 440 mg PO BID PRN pain 10/03/23 [History Confirmed 10/17/23] pioglitazone 30 mg tablet 30 mg PO QPM 10/03/23 [History Confirmed 10/17/23] sildenafil 100 mg tablet 100 mg PO DAILY PRN sexual activity 10/03/23 [History Confirmed 10/17/23] tamsulosin 0.4 mg capsule 0.4 mg PO QPM 10/03/23 [History Confirmed 10/17/23] Active Medications: Active Medications Generic Name Dose Route Start Last Admin Trade Name Freq PRN Reason Stop Dose Admin Acetaminophen 500 mg 10/17/23 13:15 Acetaminophen 500 Mg Tablet PO 10/20/23 13:14 Q6H DIMPLE Amlodipine Besylate 10 mg 10/17/23 21:00 Amlodipine 10 Mg Tablet PO 10/16/24 20:59 QPM DIMPLE Hydromorphone HCl 0.5 mg 10/17/23 10:04 Hydromorphone 0.5 Mg/0.5 Ml Syringe IV-PUSH Q2H PRN Severe Pain Hyoscyamine 0.125 mg 10/17/23 10:04 Hyoscyamine Sulfate 0.125 Mg Tab.Rapdis SUBLINGUAL 10/16/24 10:03 Q4H PRN Bladder spasms Lactated Ringer's 1,000 mls @ 20 mls/hr 10/17/23 07:14 10/17/23 10:00 Lactated Ringers IV 10/18/23 07:13 20 mls/hr .Q24H ONE Infusion Sodium Chloride 1,000 mls @ 75 mls/hr 10/17/23 10:15 10/17/23 10:54 0.9% Sodium Chloride 1,000 Ml IV 10/16/24 10:14 75 mls/hr .[id number] DIMPLE Administration Cefazolin Sodium 1 gm in 50 mls @ 100 mls/hr 10/17/23 17:00 Ancef IV Q8H DIMPLE Insulin Human Regular 0 unit 10/17/23 07:42 10/17/23 07:45 Insulin Regular, Human 1,000 Unit/10 Ml SUBCUT 10/17/23 19:43 6 unit PROTOCOL PRN Administration Hyperglycemia Protocol Lisinopril 40 mg 10/17/23 21:00 Lisinopril 40 Mg Tablet PO 10/16/24 20:59 QPM DIMPLE Metformin HCl 500 mg 10/17/23 17:00 Metformin 500 Mg Tablet PO 10/16/24 16:59 BID.WITH.MEALS DIMPLE Ondansetron HCl 4 mg 10/17/23 10:04 10/17/23 10:54 Ondansetron 4 Mg/2 Ml Vial IV-PUSH 10/16/24 10:03 4 mg Q6H PRN Administration Nausea Pioglitazone HCl 30 mg 10/17/23 21:00 Pioglitazone 30 Mg Tablet PO 10/16/24 20:59 QPM DIMPLE Sodium Chloride 0 ml 10/17/23 07:14 Sodium Chloride 0.9 % 10 Ml Syringe IV-PUSH 10/16/24 07:13 PRN PRN Flush Sodium Chloride 0 ml 10/17/23 07:15 Sodium Chloride 0.9 % 10 Ml Syringe IV-PUSH 10/16/24 07:14 PRN PRN Flush Tamsulosin HCl 0.4 mg 10/17/23 21:00 Tamsulosin 0.4 Mg Cap.Er.24h PO 10/16/24 20:59 QPM DIMPLE Temazepam 15 mg 10/17/23 10:04 Temazepam 15 Mg Capsule PO 04/14/24 10:03 QHS PRN Sleep Exam Physical Exam Vital Signs: Temp Pulse Resp BP Pulse Ox O2 Del Method O2 Flow Rate 97.4 F L 79 14 115/81 95 Room Air 8 10/17/23 11:00 10/17/23 13:15 10/17/23 11:00 10/17/23 13:15 10/17/23 13:15 10/17/23 13:15 10/17/23 09:49 Narrative: General patient laying in bed in no acute distress alert awake oriented x3 HEENT PERRLA Neck supple no JVD no carotid bruit CVS S1-S2 regular rate and rhythm no murmur no gallop Chest clear to auscultation percussion Abdomen soft bowel sounds normoactive no rebound no guarding Extremities no stenosis no clubbing no edema Musculoskeletal exam normal no joint effusion Neurologic exam oriented x3 alert awake no focal left Psychiatry: Normal insight and judgment Skin: no rash or lesions Results - Hospitalist Consult Lab Results Labs: Laboratory Results - last 72 hr 10/17/23 08:56: POC Glucose 268, POC Glucose Comment Glu2: cleaned meter 10/17/23 07:38: POC Glucose 290 Assessment & Plan Assessment/Plan (1) Diabetes mellitus, type 2: (2) BPH (benign prostatic hyperplasia): (3) Hypertension: (4) S/P TURP: Plan S/p TURP: On irrigation system management by urology Hypertension: Resume lisinopril Norvasc Diabetes type 2: Accu-Chek ACHS insulin sliding scale resume metformin and Actos BPH Flomax s/p TURP Documented By: Sam Coulter MD 10/17/23 1419 Signed By: <Electronically signed by Sam Coulter MD> 10/17/23 1422 [facility] Work Phone: 1([phone]) 647-737005-13-2024 Hospital Discharge instructions Patient Education 08/19/2023 13:28:43 EU - Cystoscopy Discharge Instructions (Custom) Cystoscopy Voiding after the procedure: there may be some pain, burning, urgency, frequency and blood tinged urine following the procedure. These symptoms usually resolve within 2-5 days. Drink the amount of fluid it takes to keep the urine pink to yellow or clear in color. Drinking enough water and fluids will help to ease any discomfort after your procedure. If you are having problems that seem out of the ordinary, please call. If unable to contact your physician and you feel it is an emergency, go to the nearest emergency room or call 911 Diet you may resume your normal diet. Activity you may resume your normal activities Call if you have a fever over 100 degrees. Follow Up Care 06/18/2023 15:19:46 With:Kyle HARRY Address: [address] [place] [address] Business (1) When: Unknown Comments:Please continue to take the Flomax at 0.4 mg daily.As you witnessed, I did remove the bladder foreign body which seems to be a UroLift clip.We will proceed with prostate resection as soon as my schedule allows.Have a great day. [facility]05-13-2024 Note [id number]-2023 NoteCystoscopy ? Voiding after the procedure: there may be some pain, burning, urgency, frequency and blood tingedurine following the procedure. These symptoms usually resolve within 2-5 days. Drink the amount of fluid it takes to keep the urine pink to yellow or clear in color. Drinking enough water and fluids will help to ease any discomfort after your procedure. ? If you are having problems that seem out of the ordinary, please call. ? If unable to contact your physician and you feel it is an emergency, go to the nearest emergency room or call 911 ? Diet ? you may resume your normal diet. ? Activity ? you may resume your normal activities ? Call if you have a fever over 100 degrees.[facility] 08-19-2023 Evaluation + Plan noteExtracted from: Title:HOPD visit Author:Kyle HARRY MD Date: 08/19/23 Impression and Plan Assessment and Plan: Diagnosis: Foreign body in bladder, initial encounter (MQF69-HW T19.1XXA, Working, Medical), BPH with obstruction/lower urinary tract symptoms (TXW66-OT N40.1, Working, Medical), Other obstructive and reflux uropathy (UTD24-GH N13.8, Discharge, Medical), Feeling of incomplete bladder emptying (JVP45-AZ R39.14, Working, Medical). Additional Plan of Care and/or Course of Treatment: Additional Plan of Care and/or Course of Treatment: Options discussed. The patient witnessed the cystoscopic evaluation today. We went over the results of his complex multichannel urodynamics demonstrating a significant positive pressure flow study with a maximum bladder pressure of 183 cm of water with a 148 cc PVR. This, combined with the findings on cystoscopy demonstrating continued presence of obstruction especially with a high riding bladder neck and the beginning of a median lobe leads to the recommendation for prostate resection under anesthesia. He was quite happy that he had his bladder foreign body removed today as well. This was an old UroLift clip. He wants to proceed with TURP. Will schedule TURP. The procedural risks, benefits, details, and treatment alternatives have been discussed with the patient. These include bleeding, infection, need for blood transfusion, continued urinary difficulties, urinary leakage which could be permanent, need for catheter, retrograde ejaculation, scar tissue formation in the urinary channel or area of prostate shaving, erection problems, blood clot formation in the lower extremities which could travel to the lungs, among others. A secondary operation could also be required. Full informed consent has been obtained. Will order General anesthesia. Risk of heart and lung problems discussed. . Future Appointments Appointment Date:10/23/2023 08:00:00 AM Scheduled Provider: Location:[facility] Appointment Type:URO Nurse Visit Appointment Date:10/30/2023 07:45:00 AM Scheduled Provider:Kyle HARRY MD Location:[facility] Appointment Type:URO Office Visit [facility]03-12-2024 Hospital Discharge instructions Patient Education 06/18/2023 15:02:00 Cystoscopy Cystoscopy Cystoscopy is a procedure that is used to help diagnose and sometimes treat conditions that affect the lower urinary tract. The lower urinary tract includes the bladder and the urethra. The urethra is the tube that drains urine from the bladder. Cystoscopy is done using a thin, tube-shaped instrument with a light and camera at the end (cystoscope). The cystoscope may be hard or flexible, depending on the goal of the procedure. The cystoscope is inserted through the urethra, into the bladder. Cystoscopy may be recommended if you have: Urinary tract infections that keep coming back. Blood in the urine (hematuria). An inability to control when you urinate (urinary incontinence) or an overactive bladder. Unusual cells found in a urine sample. A blockage in the urethra, such as a urinary stone. Painful urination. An abnormality in the bladder found during an intravenous pyelogram (IVP) or CT scan. Cystoscopy may also be done to remove a sample of tissue to be examined under a microscope (biopsy). Tell a health care provider about: Any allergies you have. All medicines you are taking, including vitamins, herbs, eye drops, creams, and chdn-gem-rssyjfw medicines. Any problems you or family members have had with anesthetic medicines. Any blood disorders you have. Any surgeries you have had. Any medical conditions you have. Whether you are or may be . What are the risks? Generally, this is a safe procedure. However, problems may occur, including: Infection. Bleeding. Allergic reactions to medicines. Damage to other structures or organs. What happens before the procedure? Medicines Ask your health care provider about: Changing or stopping your regular medicines. This is especially important if you are taking diabetes medicines or blood thinners. Taking medicines such as aspirin and ibuprofen. These medicines can thin your blood. Do not take these medicines unless your health care provider tells you to take them. Taking hxjt-hmb-yocacib medicines, vitamins, herbs, and supplements. Tests You may have an exam or testing, such as: X-rays of the bladder, urethra, or kidneys. CT scan of the abdomen or pelvis. Urine tests to check for signs of infection. General instructions Follow instructions from your health care provider about eating or drinking restrictions. Ask your health care provider what steps will be taken to help prevent infection. These steps may include: ?Washing skin with a germ-killing soap. ?Taking antibiotic medicine. Plan to have a responsible adult take you home from the hospital or clinic. What happens during the procedure? You will be given one or more of the following: ?A medicine to help you relax (sedative). ?A medicine to numb the area (local anesthetic). The area around the opening of your urethra will be cleaned. The cystoscope will be passed through your urethra into your bladder. Germ-free (sterile) fluid will flow through the cystoscope to fill your bladder. The fluid will stretch your bladder so that your health care provider can clearly examine your bladder mckeon. Your doctor will look at the urethra and bladder. Your doctor may take a biopsy or remove stones. The cystoscope will be removed, and your bladder will be emptied. The procedure may vary among health care providers and hospitals. What can I expect after the procedure? After the procedure, it is common to have: Some soreness or pain in your abdomen and urethra. Urinary symptoms. These include: ?Mild pain or burning when you urinate. Pain should stop within a few minutes after you urinate. This may last for up to 1 week. ?A small amount of blood in your urine for several days. ?Feeling like you need to urinate but producing only a small amount of urine. Follow these instructions at home: Medicines Take wsok-xtg-dtukhfb and prescription medicines only as told by your health care provider. If you were prescribed an antibiotic medicine, take it as told by your health care provider. Do notstop taking the antibiotic even if you start to feel better. General instructions Return to your normal activities as told by your health care provider. Ask your health care provider what activities are safe for you. If you were given a sedative during the procedure, it can affect you for several hours. Do not drive or operate machinery until your health care provider says that it is safe. Watch for any blood in your urine. If the amount of blood in your urine increases, call your healthcare provider. Follow instructions from your health care provider about eating or drinking restrictions. If a tissue sample was removed for testing (biopsy) during your procedure, it is up to you to get your test results. Ask your health care provider, or the department that is doing the test, when yourresults will be ready. Drink enough fluid to keep your urine pale yellow. Keep all follow-up visits. This is important. Contact a health care provider if: You have pain that gets worse or does not get better with medicine, especially pain when you urinate. You have trouble urinating. You have more blood in your urine. Get help right away if: You have blood clots in your urine. You have abdominal pain. You have a fever or chills. You are unable to urinate. Summary Cystoscopy is a procedure that is used to help diagnose and sometimes treat conditions that affect the lower urinary tract. Cystoscopy is done using a thin, tube-shaped instrument with a light and camera at the end. After the procedure, it is common to have some soreness or pain in your abdomen and urethra. Watch for any blood in your urine. If the amount of blood in your urine increases, call your healthcare provider. If you were prescribed an antibiotic medicine, take it as told by your health care provider. Do notstop taking the antibiotic even if you start to feel better. This information is not intended to replace advice given to you by your health care provider. Make sure you discuss any questions you have with your health care provider. Document Revised: 12/06/2021 Document Reviewed: 11/04/2020 [employer] Patient Education 2022 [employer]. Follow Up Care 05/01/2023 09:09:10 With:ROEL CAMPOS, Kyle Caban, ADALID Address: [facility] [employer] [place] [id number] When: Unknown Comments:sched cysto [facility] [id number] NoteUrology Cystoscopy Cystoscopy is a procedure that is used to help diagnose and sometimes treat conditions that affect the lower urinary tract. The lower urinary tract includes the bladder and the urethra. The urethra is the tube that drains urine from the bladder. Cystoscopy is done using a thin, tube-shaped instrument with a light and camera at the end (cystoscope). The cystoscope may be hard or flexible, depending on the goal of the procedure. The cystoscope is inserted through the urethra, into the bladder. Cystoscopy may be recommended if you have: ? Urinary tract infections that keep coming back. ? Blood in the urine (hematuria). ? An inability to control when you urinate (urinary incontinence) or an overactive bladder. ? Unusual cells found in a urine sample. ? A blockage in the urethra, such as a urinary stone. ? Painful urination. ? An abnormality in the bladder found during an intravenous pyelogram (IVP) or CT scan. Cystoscopy may also be done to remove a sample of tissue to be examined under a microscope (biopsy). Tell a health care provider about: ? Any allergies you have. ? All medicines you are taking, including vitamins, herbs, eye drops, creams, and sfne-enu-ehmcylh medicines. ? Any problems you or family members have had with anesthetic medicines. ? Any blood disorders you have. ? Any surgeries you have had. ? Any medical conditions you have. ? Whether you are or may be . What are the risks? Generally, this is a safe procedure. However, problems may occur, including: ? Infection. ? Bleeding. ? Allergic reactions to medicines. ? Damage to other structures or organs. What happens before the procedure? Medicines Ask your health care provider about: ? Changing or stopping your regular medicines. This is especially important if you are taking diabetes medicines or blood thinners. ? Taking medicines such as aspirin and ibuprofen. These medicines can thin your blood. Do not take these medicines unless your health care provider tells you to take them. ? Taking cstl-qkz-jnlepkv medicines, vitamins, herbs, and supplements. Tests You may have an exam or testing, such as: ? X-rays of the bladder, urethra, or kidneys. ? CT scan of the abdomen or pelvis. ? Urine tests to check for signs of infection. General instructions ? Follow instructions from your health care provider about eating or drinking restrictions. ? Ask your health care provider what steps will be taken to help prevent infection. These steps mayinclude: ? Washing skin with a germ-killing soap. ? Taking antibiotic medicine. ? Plan to have a responsible adult take you home from the hospital or clinic. What happens during the procedure? ? You will be given one or more of the following: ? A medicine to help you relax (sedative). ? A medicine to numb the area (local anesthetic). ? The area around the opening of your urethra will be cleaned. ? The cystoscope will be passed through your urethra into your bladder. ? Germ-free (sterile) fluid will flow through the cystoscope to fill your bladder. The fluid will stretch your bladder so that your health care provider can clearly examine your bladder mckeon. ? Your doctor will look at the urethra and bladder. Your doctor may take a biopsy or remove stones. ? The cystoscope will be removed, and your bladder will be emptied. The procedure may vary among health care providers and hospitals. What can I expect after the procedure? After the procedure, it is common to have: ? Some soreness or pain in your abdomen and urethra. ? Urinary symptoms. These include: ? Mild pain or burning when you urinate. Pain should stop within a few minutes after you urinate. This may last for up to 1 week. ? A small amount of blood in your urine for several days. ? Feeling like you need to urinate but producing only a small amount of urine. Follow these instructions at home: Medicines ? Take wbwm-zgu-ezcvgap and prescription medicines only as told by your health care provider. ? If you were prescribed an antibiotic medicine, take it as told by your health care provider. Do not stop taking the antibiotic even if you start to feel better. General instructions ? Return to your normal activities as told by your health care provider. Ask your health care provider what activities are safe for you. ? If you were given a sedative during the procedure, it can affect you for several hours. Do not drive or operate machinery until your health care provider says that it is safe. ? Watch for any blood in your urine. If the amount of blood in your urine increases, call your health care provider. ? Follow instructions from your health care provider about eating or drinking restrictions. ? If a tissue sample was removed for testing (biopsy) during your procedure, it is up to you to getyour test results. Ask your health care provider, or the department th (more content not included)...[facility] 05-01-2023 Hospital Discharge instructions Patient Education 05/01/2023 08:59:27 Benign Prostatic Hyperplasia Benign Prostatic Hyperplasia Benign prostatic hyperplasia (BPH) is an enlarged prostate gland that is caused by the normal agingprocess. The prostate may get bigger as a man gets older. The condition is not caused by cancer. The prostate is a walnut-sized gland that is involved in the production of semen. It is located in front of the rectum and below the bladder. The bladder stores urine. The urethra carries stored urine ou t of the body. An enlarged prostate can press on the urethra. This can make it harder to pass urine. The buildup of urine in the bladder can cause infection. Back pressure and infection may progress to bladder damage and kidney (renal) failure. What are the causes? This condition is part of the normal aging process. However, not all men develop problems from thiscondition. If the prostate enlarges away from the urethra, urine flow will not be blocked. If it enlarges toward the urethra and compresses it, there will be problems passing urine. What increases the risk? This condition is more likely to develop in men older than 50 years. What are the signs or symptoms? Symptoms of this condition include: Getting up often during the night to urinate. Needing to urinate frequently during the day. Difficulty starting urine flow. Decrease in size and strength of your urine stream. Leaking (dribbling) after urinating. Inability to pass urine. This needs immediate treatment. Inability to completely empty your bladder. Pain when you pass urine. This is more common if there is also an infection. Urinary tract infection (UTI). How is this diagnosed? This condition is diagnosed based on your medical history, a physical exam, and your symptoms. Tests will also be done, such as: A post-void bladder scan. This measures any amount of urine that may remain in your bladder after you finish urinating. A digital rectal exam. In a rectal exam, your health care provider checks your prostate by putting a lubricated, gloved finger into your rectum to feel the back of your prostate gland. This exam detects the size of your gland and any abnormal lumps or growths. An exam of your urine (urinalysis). A prostate specific antigen (PSA) screening. This is a blood test used to screen for prostate cancer. An ultrasound. This test uses sound waves to electronically produce a picture of your prostate gland. Your health care provider may refer you to a specialist in kidney and prostate diseases (urologist). How is this treated? Once symptoms begin, your health care provider will monitor your condition (active surveillance or watchful waiting). Treatment for this condition will depend on the severity of your condition. Treatment may include: Observation and yearly exams. This may be the only treatment needed if your condition and symptoms are mild. Medicines to relieve your symptoms, including: ?Medicines to shrink the prostate. ?Medicines to relax the muscle of the prostate. Surgery in severe cases. Surgery may include: ?Prostatectomy. In this procedure, the prostate tissue is removed completely through an open incision or with a laparoscope or robotics. ?Transurethral resection of the prostate (TURP). In this procedure, a tool is inserted through the opening at the tip of the penis (urethra). It is used to cut away tissue of the inner core of the prostate. The pieces are removed through the same opening of the penis. This removes the blockage. ?Transurethral incision (TUIP). In this procedure, small cuts are made in the prostate. This lessens the prostate's pressure on the urethra. ?Transurethral microwave thermotherapy (TUMT). This procedure uses microwaves to create heat. The heat destroys and removes a small amount of prostate tissue. ?Transurethral needle ablation (TUNA). This procedure uses radio frequencies to destroy and remove a small amount of prostate tissue. ?Interstitial laser coagulation (ILC). This procedure uses a laser to destroy and remove a small amount of prostate tissue. ?Transurethral electrovaporization (TUVP). This procedure uses electrodes to destroy and remove a small amount of prostate tissue. ?Prostatic urethral lift. This procedure inserts an implant to push the lobes of the prostate away from the urethra. Follow these instructions at home: Take ikis-zwn-krsxyqn and prescription medicines only as told by your health care provider. Monitor your symptoms for any changes. Contact your health care provider with any changes. Avoid drinking large amounts of liquid before going to bed or out in public. Avoid or reduce how much caffeine or alcohol you drink. Give yourself time when you urinate. Keep all follow-up visits. This is important. Contact a health care provider if: You have unexplained back pain. Your symptoms do not get better with treatment. You develop side effects from the medicine you are taking. Your urine becomes very dark or has a bad smell. Your lower abdomen becomes distended and you have trouble passing urine. Get help right away if: You have a fever or chills. You suddenly cannot urinate. You feel light-headed or very dizzy, or you faint. There are large amounts of blood or clots in your urine. Your urinary problems become hard to manage. You develop moderate to severe low back or flank pain. The flank is the side of your body between the ribs and the hip. These symptoms may be an emergency. Get help right away. Call 911. Do not wait to see if the symptoms will go away. Do not drive yourself to the hospital. Summary Benign prostatic hyperplasia (BPH) is an enlarged prostate that is caused by the normal aging process. It is not caused by cancer. An enlarged prostate can press on the urethra. This can make it hard to pass urine. This condition is more likely to develop in men older than 50 years. Get help right away if you suddenly cannot urinate. This information is not intended to replace advice given to you by your health care provider. Make sure you discuss any questions you have with your health care provider. Document Revised: 10/11/2021 Document Reviewed: 10/11/2021 [employer] Patient Education 2022 [employer]. Follow Up Care 03/29/2023 08:04:41 With:LORE ZAPATA PA-C, URL Address: [address] [place] [address] When:Within 6 Week(s) [facility] [place] [id number] Hospital Discharge instructions Patient Education 03/25/2023 13:55:04 Lue - Urolift Post-Op Instructions (Custom) [facility] [place], [place] Post-Operative Instructions for UroLift After your procedure it is normal to have: Gross Hematuria (blood in the urine) You may even notice blood clots in your urine. A small amount of blood may apppear to be a lot of blood in your urine as it is diluted. Restarting your blood thinner, increased activity and heavy lifting could increase the amount of bleeding. The bleeding may besporadic (off and on) over the next 2-3 weeks. Ensure you are hydrating to assist in flushing the blood to prevent voiding complications. In the event you are unable to void, please reach out to our office. If the office is closed, you will need to report to the local emergency room. Blood in your semen and stool may be present. The blood in your semen is not harmful to you or your partner. This will resolve with time. Frequency/urgency/burning with urination is very common. This is due to irritation from your procedure. These symptoms do not indicate that your procedure was unsuccessful or that there is an infection. Ensure you are hydrating! You may try AZO over the counter as needed for urinary discomfort. Pain/discomfort are normal as well. There has been a non-narcotic prescription sent to your pharmacy. You may alternate this prescription with over the counter Ibuprofen. Your pain and discomfort should improve within a few days. When do I need to call the office? We ask that you reach out to the office if you experience a temperature of 100.4 F or higher, excessive urinary bleeding, symptoms of infection, inability to urinate or uncontrolled pain. If the office is closed, you may need to present to the local emergency department. Ortiz catheter : You have the catheter in and will have some bleeding around the catheter. Push fluids to keep the urine clear. Please call the office to have the catheter removed later this week. Postop UroLift Instructions Complete your antibiotic as instructed. Remain on all your urinary medication until follow up. Take your pain madications and AZO as needed. Resume any blood thinners 48 hour post procedure. Continue to hydrate! Minimize your activity for 72-96 hours post procedure. If you are prescribed Oxybutynin for bladder spasms, you may take this medication every 8 hours as needed. This medication may cause dry mouth/eyes and constipation. Taking an over the counter stool softener and drinking plenty of water will help with side effects. Ortiz Catheter Removal Your healthcare provider has instructed you to remove your Ortiz catheter. This is a thin, flexibletube that allows urine to drain out of your bladder and into a bag. It is important to properly remove your catheter to prevent infection and other complications. If you have any questions about removing the Ortiz catheter, ask your healthcare provider before trying to remove it. Otherwise, follow the instructions on this sheet. Ortiz Catheter The Ortiz catheter is held in place by a small balloon that is filled with water. To remove the catheter, you must first drain the water from the balloon. This is done using a syringe and the balloonport. This is the opening in the catheter that is not attached to the bag. It allows you to get to the balloon. Instructions for Removing the Catheter Follow the directions closely. Note: If the catheter does not come out with gentle pulling, stop and call your healthcare provider right away. Empty the bag of urine if needed. Wash your hands with soap and warm water. Dry them well. Gather your supplies. This includes a syringe that was given to you by your healthcare provider, a wastebasket, and a towel. Put the syringe into the balloon port on the catheter. The syringe fits tightly into the port with a firm push and twist motion. Wait as the water from the balloon empties into the syringe. Depending on how large the balloon is,you may need to repeat this process several times until all of the water is out of the balloon. Once the balloon is emptied, gently pull out the catheter. Put the used catheter in the wastebasket. Throw away the syringe. Use the towel to wipe up any spilled water or urine if needed. Wash your hands again. When to Call Your Healthcare Provider Call the healthcare provider right away if: You have a fever of 100.4 F (38 C) or higher, or as directed by your healthcare provider. You have questions about removing the catheter. The catheter does not come out with gentle pulling. You cannot urinate within 8 hours of removing the catheter. Your belly (abdomen) is painful or bloated You have burning pain with urination that lasts for 24 hours. You see a lot of blood in your urine. Light bleeding for 24 hours is normal. It feels like the bladder is not emptying. Follow Up Care 02/11/2023 15:12:28 With:Kyle HARRY Address: [address] [place] [id number] Business (1) When: Unknown Comments:Please call my office to make arrangements to have the catheter removed in the office by one of ourmedical assistants later this week. [facility]12-18-2023 Note [id number] Hospital Discharge instructions Patient Education 02/11/2023 14:30:07 EU - Cystoscopy Discharge Instructions (Custom) Cystoscopy Voiding after the procedure: there may be some pain, burning, urgency, frequency and blood tinged urine following the procedure. These symptoms usually resolve within 2-5 days. Drink the amount of fluid it takes to keep the urine pink to yellow or clear in color. Drinking enough water and fluids will help to ease any discomfort after your procedure. If you are having problems that seem out of the ordinary, please call. If unable to contact your physician and you feel it is an emergency, go to the nearest emergency room or call 911 Diet you may resume your normal diet. Activity you may resume your normal activities Call if you have a fever over 100 degrees. Follow Up Care 01/17/2023 15:56:07 With:Kyle HARRY Address: [address] [place] [id number]- Business (1) When: Unknown Comments:As we discussed, you are actually a candidate for any of the procedures which have been discussed with you. [facility]11-06-2023 Note [id number] 02-11-2023 NoteCystoscopy ? Voiding after the procedure: there may be some pain, burning, urgency, frequency and blood tingedurine following the procedure. These symptoms usually resolve within 2-5 days. Drink the amount of fluid it takes to keep the urine pink to yellow or clear in color. Drinking enough water and fluids will help to ease any discomfort after your procedure. ? If you are having problems that seem out of the ordinary, please call. ? If unable to contact your physician and you feel it is an emergency, go to the nearest emergency room or call 911 ? Diet ? you may resume your normal diet. ? Activity ? you may resume your normal activities ? Call if you have a fever over 100 degrees.[facility] 02-11-2023 Evaluation + Plan noteExtracted from: Title:HOPD visit Author:Kyle HARRY MD Date: 02/11/23 Impression and Plan Assessment and Plan: Diagnosis: BPH with obstruction/lower urinary tract symptoms (YLK30-LG N40.1, Working, Medical), Significant and ongoing despite medical management as noted in HPI. . Additional Plan of Care and/or Course of Treatment: Additional Plan of Care and/or Course of Treatment: Discussed results of cystoscopic evaluation with the patient. He witnessed this under video as well. We could proceed with either more aggressive intervention such as prostate resection versus a minimally invasive procedure. He had previously received literature regarding both the Rezum procedure and the UroLift procedure. He decides to proceed with the latter. All risks and benefits and details have been described. He understands risk of bleeding, infection, need for additional procedural intervention, need for indwelling Ortiz catheter, severe bleeding requiring hospitalization, among others. He wishes to proceed. The usual prescriptions have been sent including antibiotic coverage, Ultracet, ciprofloxacin, and oxybutynin as well as Ultram. . Future Appointments Appointment Date:03/11/2023 07:45:00 AM Scheduled Provider: Location:[facility] Appointment Type:Urology CALL PAT FT Appointment Date:03/25/2023 01:30:00 PM Scheduled Provider: Location:[facility] Future Appointments Appointment Date:03/29/2023 08:00:00 AM Scheduled Provider: Location:[facility] Future Appointments Appointment Date:05/01/2023 08:40:00 AM Scheduled Provider:LORE ZAPATA PA-C Location:[facility] Appointment Type:URO Office Visit [facility] Evaluation + Plan note Future Appointments Appointment Date:06/18/2023 02:30:00 PM Scheduled Provider:Kyle HARRY MD Location:[facility] Appointment Type:URO Office Visit [facility] Evaluation + Plan note Future Appointments Appointment Date:08/12/2023 10:30:00 AM Scheduled Provider: Location:[facility] Appointment Type:Urology CALL PAT FT Appointment Date:08/19/2023 01:00:00 PM Scheduled Provider: Location:[facility] Appointment Type:Urology FT Appointment Date:08/19/2023 02:00:00 PM Scheduled Provider: Location:[facility] Appointment Type:Urology FT [facility] Evaluation + Plan note Future Appointments Appointment Date:10/30/2023 07:45:00 AM Scheduled Provider:K[facility] HARRY MD [facility] Visit [facility] evaluation + Plan note Future Appointments Appointment Date:01/29/2024 08:15:00 AM Scheduled Provider:Kyle HARRY MD Location:[facility] Appointment Type:URO Office Visit [facility] Evaluation + Plan note Future Appointments Appointment Date:02/03/2025 08:15:00 AM Scheduled Provider:Kyle HARRY MD Location:[facility] Appointment Type:URO Office Visit [facility] Evaluation noteNo assessment information available [facility] Work Phone: Evaluation note* Diagnosis Onset Date Resolution Status BPH (benign prostatic hyperplasia) acute Diabetes mellitus, type 2 ac chilkat Hypertension acute S/P TURP acute [facility] Work Phone: Hospital course Narrative No data available for this section [facility] No data available for this section [facility] [facility] Discharge instructions Additional Instructions DISCHARGE INSTRUCTIONS FOR PROSTATE SURGERY TUR-prostate, EVOLVE laser, Greenlight Laser, Prostate Vaporization, Prostate Incision -Even though there are no visible incisions, the prostate is quite raw on the inside and you need to follow some instructions to minimize the risks of bleeding and disturbing the area over the next six weeks. -The catheter in the bladder will be irritating, sometimes causing a strong desire to urinate. Often patients will experience urine leakage around the catheter, as well as some blood in the urine. These same symptoms may persist even after the catheter is removed. -You have a leg bag to hold the urine, which will need emptied to avoid a urine backup. You may wash around the catheter entrance site with soap and water. You may also use an antibiotic ointment, such as Bacitracin or Neomycin. DIET -You may resume your normal diet, but you may want to avoid alcohol, carbonated drinks, caffeine, and spicy foods, which may increase the irritation from the surgery and the catheter. Drink plenty of fluids to keep the urine clear. ACTIVITY You should limit any physical activity, especially over the first 2-3 weeks. -No heavy lifting or straining (10 pound limit). -No driving a car and limit long car rides for 1-2 weeks. -No strenuous exercise. -No sexual intercourse until this is discussed with your doctor. -Showering is OK, even while catheter is in. -Light activity, such as walking, is encouraged, as you are able (stairs are OK). BOWELS -Try to keep your bowel movements soft to minimize straining to have a bowel movement. You may use a stool softener or over the counter laxative if needed. Difficult bowel movements may lead to straining and bleeding from the prostate. MEDICATIONS -You may resume your home medications unless instructed otherwise. -[Hold aspirin, ibuprofen, Coumadin (Warafin) and other blood thinners until your office visit (we'll discuss when to resume these medications).] -Take your prescribed medications as directed, including your antibiotics. You may also be given a prescription for pain medicine. THINGS TO WATCH FOR WHICH WOULD REQUIRE AN EMERGENCY ROOM VISIT (OR CALL 911) -Persistent or heavy bleeding or blood clots clogging the catheter. -Fever over 101.5 degrees Fahrenheit, with or without chills. -Severe drug reactions with itching, hives, or rash. -Tenderness or swelling of the calves, chest pain, or shortness of breath. FOLLOW UP -Please call the office to arrange for your post-operative appointment to remove the catheter. [ ][facility] Work Phone: Progress note No data available for this section [facility] Summary Purpose Family History Relationship Condition Age at Onset Recorded Date/T cara mother Myocardial infarction Unknown father Type 2 diabetes mellitus Unknown Hypertension Unknown Congestive heart failure Unknown Advance Directives Advance Directive Response Recorded Date/ Time Advance Directives No September 25 2:14pm Chief Complaint and Reason for Visit Chief Complaint BPH w/[place] Chief Complaint BPH w/[place] BPH w/[place] Reason for Visit BPH (benign prostati c hyperplasia) Diabetes mellitus, type 2 Hypertension S/P TURP Additional Source Comments (unrecognized sect ion and content) No Status Records FoundNo Status Records FoundNo Status Records Found INFORMATION SOURCE (unrecogn ized section and content) DATE CREATED AUTHOR 05/07/2022 [facility] DATE CREATED AUTHOR AUTHOR'S ORGANIZ ATION 11/26/2023 [facility] DATE CREATED AUTHOR AUTHOR'S ORGANIZ ATION 01/28/2024 [facility] Patient Care team informatio n (unrecognized section and content) Personnel Name: Abdulkadir Lockett MD Address: Address: [address] [place] [address] [place], [place] [address] Team Status: Active Member Role Status Dates Abdulkadir Lockett MD Primary Care Provider Active Team Status: Inactive Member Role Status Dates Kyle Harry MD Attending Provider Active St art: October 03, 2023 End: October 03, 2023 Abdulkadir Lockett MD Primary Care Provider Active Start: October 03, 2023 End: October 03, 2023 Team Status: Inactive Member Role Status Dates Kyle Harry MD Attending Provider Active St art: October 17, 2023 End: October 18, 2023 Abdulkadir Lockett MD Primary Care Provider Active Start: October 17, 2023 End: October 18, 2023 Kary Sanford , IDA Other Provider Active Star t: October 17, 2023 End: October 18, 2023 Naz Hubbard , IDA Other Provider Active Start : October 17, 2023 End: October 18, 2023 Gladys Yeboah , IDA Other Provider Active Star t: October 17, 2023 End: October 18, 2023 Nathalia Ordaz , IDA Other Provider Active Start: [place] delano 2023 End: October 18, 2023 Lisandra Bautista , IDA Other Provider Active Start: Gina soliz 2023 End: October 18, 2023 Roverto Cordoba MD Other Provider Active Start: October 17, 2023 End: October 18, 2023 Halima Burogs DO Other Provider Active Start : October 17, 2023 End: October 18, 2023 Temo Collado MD Other Provider Active Start : October 17, 2023 End: October 18, 2023 Brody Bustos DO Other Provider Active Start: October 17, 2023 End: October 18, 2023 Horace Ureña MD Other Provider Active Start: October 17, 2023 End: October 18, 2023 Alaina Christianson MD Other Provider Active Start : October 17, 2023 End: October 18, 2023 Leonardo Ibrahim MD Other Provider Active Start: Guanakito wick 2023 End: October 18, 2023 Daisha Romero APRN Other Provider Active Start: October 17, 2023 End: October 18, 2023 Kingston Max MD Other Provider Active Start: October 17, 2023 End: October 18, 2023 Daniel Bueno MD Other Provider Active Start: [place] 2023 End: October 18, 2023 Juan Diego Thomas MD Other Provider Active Start: October 17, 2023 End: October 18, 2023 Shaun Chauhan MD Other Provider Active Start: October 17, 2023 End: October 18, 2023 Shantanu Tavares DO Other Provider Active Start: October 17, 2023 End: October 18, 2023 Zack Salvador MD Other Provider Active Start: ly 2023 End: October 18, 2023 Nick Borrego MD Other Provider Active Start: Oct End: October 18, 2023 Susannah Albright NP-C Other Provider Active St art: October 17, 2023 End: October 18, 2023 Rebeca Mak APRN Other Provider Active Star t: October 17, 2023 End: October 18, 2023 Juan Manuel Alexandra MD Other Provider Active Start: October 17, 2023 End: October 18, 2023 Fan Gloria MD Other Provider Active Start: Ju ly 2023 End: October 18, 2023 Chris Rojas MD Other Provider Active Start: Oct End: October 18, 2023 Lulú Nuno MD Other Provider Active Star t: October 17, 2023 End: October 18, 2023 Sukhdev Aleman MD Other Provider Active Start: [place] 2023 End: October 18, 2023 Trish Patel DO Other Provider Active Start: Ju ly 2023 End: October 18, 2023 Odell Torres DO Other Provider Active Start : October 17, 2023 End: October 18, 2023 Kira Peres APRN Other Provider Active Start: October 17, 2023 End: October 18, 2023 Ayan Robles DO Other Provider Active Start: October 17, 2023 End: October 18, 2023 Marilu Muñoz MD Other Provider Active Sta rt: October 17, 2023 End: October 18, 2023 Destiny Thomas APRN Other Provider Active Start : October 17, 2023 End: October 18, 2023 Tammi Martino APRN Other Provider Active St art: October 17, 2023 End: October 18, 2023 Sam Coulter MD Other Provider Active Start: [place] 2023 End: October 18, 2023 Pérez Carlos MD Other Provider Active S tart: October 17, 2023 End: October 18, 2023 Jerson Watson , DO Other Provider Active Star t: October 17, 2023 End: October 18, 2023 Aaliyah Rios DO Other Provider Active Start: October 17, 2023 End: October 18, 2023 Davin Rojas MD Other Provider Active Start: October 17, 2023 End: October 18, 2023 Brenda Jameson MD Other Provider Active Start: October 17, 2023 End: October 18, 2023 Soco Padgett APRN Other Provider Active Star t: October 17, 2023 End: October 18, 2023 Samson Jim MD Other Provider Active Start: [place] 2023 End: October 18, 2023 Dusty Manriquez MD Other Provider Active Start: Gina soliz 2023 End: October 18, 2023 Zainab Ruiz RN Other Provider Active Start: [place] 2023 End: October 18, 2023 Goals (unrecognized section and content) Goals may be documented in a n alternate section FOR RECORDS PERTAINING TO PATIENTS WHO ARE OR HAVE BEEN ENROLLED IN A CHEMICAL DEPENDENCY/SUBSTANCEABUSE PROGRAM, SOME INFORMATION MAY BE OMITTED. This clinical summary was aggregated from multiple sources. Caution should be exercised in using it in the provision of clinical care. This summary normalizes information from multiple sources, and as a consequence, information in this document may materially change the coding, format and clinical context of patient data. In addition, data may be omitted in some cases. CLINICAL DECISIONS SHOULD BE BASED ON THE PRIMARY CLINICAL RECORDS. [facility] [employer] provides no warranty or guarantee of the accuracy or completeness of information in this document.
== END 2025-01-07 14:48 | disposition home or self-care (01) ==
LOC: LAB 14:47
PROVIDERS: PCP Family Medicine; Visit Provider Family Medicine
DX: Z00.00 Encounter for general adult medical examination without abnormal findings (principal)
CPT/HCPCS: G0328